=== PATIENT | female | born 1940 | race Caucasian/White ===

== ENCOUNTER 2017-12-22 10:38 | Inpatient (IN) | payer MEDICARE ==
[2017-12-22] MEDS ORDERED: Acetaminophen TAB* 325 MG PO PRN (13:28)
[2017-12-22] MEDS ORDERED: Magnesium Hydroxide LIQ* 30 ML UDC PO PRN (13:28)
[2017-12-22] MEDS ORDERED: Senna TAB PO PRN (13:28)
[2017-12-22] MEDS: Vancomycin CAP* 125 MG CAP PO SCH ×2 (16:10→20:58)
--- NOTE | 2017-12-22 20:45 | HP ---
HISTORY AND PHYSICAL: DATE OF ADMISSION: 12/22/17 REASON FOR ADMISSION: CVA with right hemiplegia. HISTORY OF PRESENT ILLNESS: Lorena Arguello is a 77-year-old female. She has a history significant for hypertension. She lives in her own home in [place]. On 12/12/17, the patient was in her own home. She called and spoke to her daughter. Her daughter then called on 12/13/17 the following day and was not able to reach her mother. She went to her mother's house and found her mother on the floor. She was on the floor for many hours. Unfortunately, she was outside the window for TPA. Her daughter called 911 and she was brought to [facility]. 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 Surgery was consulted; but due to the 100% occlusion , no intervention was recommended. She had a dense right hemiplegia as well as a left gaze preference. She also was noted to have left-sided facial droop and significant dysarthria and dysphagia. She was on a purred diet with nectar thick liquids. She was felt to have Physical Therapy, Occupational Therapy, and Speech Therapy needs. She is now being admitted for inpatient rehab so that she might return to independent living. Also of note, the patient did have newly documented atrial fibrillation with rapid ventricular response on . Recommendations of the aircraft maintenance engineer was that she be anticoagulated 1 week after the stroke onset. She was started on Pradaxa on 12/19/17. She also had a beta-amor added. She also had diarrhea while at [facility]. C. diff was positive on 12/19/17. She was started on Flagyl and then switched to vancomycin. The vancomycin should finish 12/30/17. PAST MEDICAL HISTORY: Significant for the aforementioned hypertension. In addition, the patient may have had a TIA over the summer, which she did not tell anybody about until after she had her stroke. She developed the acute onset left facial droop for several hours which passed on its own. CURRENT MEDICATIONS: Include: 1. Pradaxa. 2. Cozaar. 3. Lipitor. 4. Toprol-XL. 5. Vancomycin for C. diff. ALLERGIES: To ASPIRIN, BENADRYL, PENICILLIN, and SULFA. SOCIAL HISTORY: She is a smoker, nondrinker. She lives by herself in a 1- story house with several steps to enter her. Her daughter lives next door. REVIEW OF SYSTEMS: The patient reports no shortness of breath or chest pain. PHYSICAL EXAMINATION VITAL SIGNS: The patient's temperature is 98.2, blood pressure is 158/92, pulse 58, respirations 16. HEENT: She has a left gaze preference. With effort, she is able to look past the midline to the right, but typically looks towards the left. She has a left facial droop. LUNGS: Sound clear to auscultation bilaterally. HEART: Regular. S1, S2 audible. ABDOMEN: Soft and nontender. EXTREMITIES: Her right upper and lower extremity appeared to be flaccid. Peripheral pulses were intact.He right heel has a 3 x 3 cm Stage II (at least) pressure ulcer, with outer epidermal layer open NEUROLOGIC: The patient was awake, alert, oriented. Muscle strength on the right, I did not detect any active movement in her right upper and lower extremity. Sensation was slightly diminished. As mentioned, she has a gaze preference to the left. She has a significant dysarthria. FUNCTIONAL EXAM: She transfers with mod assist of 2 people. ASSESSMENT: Cerebrovascular accident with right hemiplegia. PLAN: Integrate her into a comprehensive and therapeutic rehab program with the following goals. 1. Physical Therapy will work with the patient. They are going to work on functional transfer training, ambulation training, and wheelchair mobilities. 2. Occupational Therapy will see the patient and work on her activities of daily living including toileting and toilet transfers. 3. Speech Therapy will see the patient. They are going to work on her significant dysarthria as well as her swallowing difficulties. 4. We are going to continue Pradaxa for her atrial fibrillation along with Toprol- XL. 5. DVT prophylaxis is Pradaxa 150 mg twice a day. 6. For her dysarthria, she remains on a pureed diet with nectar thick liquids. 7. For secondary stroke prevention, we are going to continue Pradaxa as well as Lipitor. 8. Smoking cessation will be encouraged. 9. SSRIs including Prozac as indicated. We are going to start her on Prozac 10 mg in the next few days. 10. Family training as appropriate. 11. director of consulting services will be closely involved to make sure that any services and equipment that the patient requires are in place prior to discharge. 12. Home with appropriate services. ESTIMATED LENGTH OF STAY: Four to five weeks. [id number]/[facility] #: [id number] HILARIA
[2017-12-22] MEDS: Docusate CAP* 100 MG PO SCH (20:56)
[2017-12-22] MEDS: CMC:Dabigatran CAP(NF) 150 MG CAP PO SCH (20:59)
[2017-12-23 07:53] LABS: ABS Basophils 0.1 10^3/ul (0-0.2); ABS Eosinophils 0.1 10^3/ul (0-0.6); ABS Lymphocytes 2.2 10^3/ul (1.0-4.8); ABS Monocytes 1.5 10^3/ul (0-0.8); ABS Neutrophils 8.9 10^3/ul (1.5-7.7); ABS Nucleated RBC 0 10^3/ul; Eosinophil % 0.9 % (0-6); Hematocrit 40 % (35-47); Hemoglobin 13.4 g/dl (12.0-16.0); Lymphocyte % 17.3 % (25-47); Mean Corpuscular HGB Conc 33 g/dl (31-36); Mean Corpuscular Hemoglobin 29 pg (27-31); Mean Corpuscular Volume 86 fL (80-97); Mean Platelet Volume 9 um3 (7.4-10.4); Nucleated Red Blood Cells % 0; Platelet Count 331 10^3/ul (150-450); Red Blood Count 4.68 10^6/ul (4.0-5.4); Red Cell Distribution Width 15 % (10.5-15); White Blood Count 12.9 10^3/ul (3.5-10.8)
[2017-12-23 08:12] LABS: EGFR Non-African American 98.3 (>60)
[2017-12-23] MEDS: Losartan TAB* 25 MG PO SCH (08:51)
[2017-12-23] MEDS: Vancomycin CAP* 125 MG CAP PO SCH ×4 (08:51→21:16)
[2017-12-23] MEDS: CMC:Dabigatran CAP(NF) 150 MG CAP PO SCH ×2 (08:51→21:16)
[2017-12-23] MEDS: Lactobacillus Acidophilu (GG)* 1 CAP CAP PO SCH (08:51)
[2017-12-23] MEDS: Metoprolol Succinate XL TAB* 50 MG PO SCH (08:51)
[2017-12-23] MEDS: Docusate CAP* 100 MG PO SCH ×2 (09:00→21:12)
[2017-12-23] MEDS: Atorvastatin* 80 MG TAB PO SCH (16:57)
--- NOTE | 2017-12-23 18:06 | PN ---
Progress Note Date of Service: 12/23/17 Note: CANDI WADE was visited. Therapy notes read and reviewed. She remains with flaccid right side. She is also dysarthric, but communicates enough to be understood. Remains on pureed textures, nectar thick liquids Current Medications: Active Medications Generic Name Dose Route Start Last Admin Trade Name Freq PRN Reason Stop Dose Admin Acetaminophen 650 mg 12/22/17 13:28 Tylenol Tab* PO Q6H PRN FEVER/PAIN Atorvastatin Calcium 80 mg 12/23/17 17:00 12/23/17 16:57 Lipitor* PO 80 mg 1700 NATHANIEL Administration Dabigatran 150 mg 12/22/17 21:00 12/23/17 08:51 Pradaxa Cap(Nf) PO 150 mg BID NATHANIEL Administration Docusate Sodium 100 mg 12/22/17 21:00 12/23/17 09:00 Colace Cap* PO Not Given BID NATHANIEL Lactobacillus Rhamnosus 1 cap 12/23/17 09:00 12/23/17 08:51 Culturelle* PO 1 cap DAILY NATHANIEL Administration Losartan Potassium 100 mg 12/23/17 09:00 12/23/17 08:51 Cozaar Tab* PO 100 mg DAILY NATHANIEL Administration Magnesium Hydroxide 30 ml 12/22/17 13:28 Milk Of Magnesia Liq* PO Q6H PRN CONSTIPATION Metoprolol Succinate 75 mg 12/23/17 09:00 12/23/17 08:51 Toprol Xl Tab* PO 75 mg DAILY NATHANIEL Administration Senna 2 tab 12/22/17 13:28 Senokot Tab* PO BEDTIME PRN CONSTIPATION Vancomycin HCl 125 mg 12/22/17 17:00 12/23/17 16:57 Vancomycin Cap* PO 12/30/17 23:55 125 mg QID NATHANIEL Administration Vital Signs: Vital Signs Temp Pulse Resp BP Pulse Ox 97.9 F 57 18 145/64 94 12/23/17 15:46 12/23/17 15:46 12/23/17 15:48 12/23/17 15:46 12/23/17 15:48 Lab Results: Laboratory Results - last 24 hr 12/23/17 12/23/17 07:20 07:20 WBC 12.9 H RBC 4.68 Hgb 13.4 Hct 40 MCV 86 MCH 29 MCHC 33 RDW 15 Plt Count 331 MPV 9 Neut % (Auto) 69.3 Lymph % (Auto) 17.3 L Simpson % (Auto) 11.7 H Eos % (Auto) 0.9 Baso % (Auto) 0.8 Absolute Neuts (auto) 8.9 H Absolute Lymphs (auto) 2.2 Absolute Monos (auto) 1.5 H Absolute Eos (auto) 0.1 Absolute Basos (auto) 0.1 Absolute Nucleated RBC 0 Nucleated RBC % 0 Sodium 138 Potassium 3.5 Chloride 105 Carbon Dioxide 27 Anion Gap 6 BUN 23 Creatinine 0.59 Est GFR ( Amer) 126.5 Est GFR (Non-Af Amer) 98.3 BUN/Creatinine Ratio 39.0 H Glucose 101 H Calcium 8.8 Total Bilirubin 0.60 AST 23 ALT 27 Alkaline Phosphatase 84 Total Protein 6.1 L Albumin 3.1 L Globulin 3.0 Albumin/Globulin Ratio 1.0 Exam: HEENT: L facial droop. Left gaze preference LUNGS: Clear bilaterally HEART: Reg rhythm ABDOMEN: Soft + BS NEUROLOGIC: Right side is flaccid. Dysarthric. Assessment/Plan: 12/23/17 18:03 1. Left CVA, right hemiplegia: PT/OT/RETAIL PLANNING MANAGER. 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 May start Prozac 2. Dysphagia: Pureed Texture, nectar thick liquids 3. Right heel ulcer: Doing mepiplex dressings 4. P. Atrial Fibrillation: Pradaxa/Lopressor 5. C. Diff: Oral Vanco until 12/30 6. Advanced Directives: Has MOLST; DNR
[2017-12-24] MEDS: Docusate CAP* 100 MG PO SCH ×2 (09:11→20:53)
[2017-12-24] MEDS: CMC:Dabigatran CAP(NF) 150 MG CAP PO SCH ×2 (09:51→21:04)
[2017-12-24] MEDS: Vancomycin CAP* 125 MG CAP PO SCH ×4 (09:51→21:04)
[2017-12-24] MEDS: Metoprolol Succinate XL TAB* 50 MG PO SCH (09:52)
[2017-12-24] MEDS: Losartan TAB* 25 MG PO SCH (09:52)
[2017-12-24] MEDS: Lactobacillus Acidophilu (GG)* 1 CAP CAP PO SCH ×2 (09:52→21:04)
[2017-12-24] MEDS: Atorvastatin* 80 MG TAB PO SCH (17:22)
--- NOTE | 2017-12-24 20:12 | PN ---
Progress Note Date of Service: 12/24/17 Note: CANDI WADE was visited. Therapy notes read and reviewed. Will start Prozac tomorrow. We will also try the Free Water program as recommended by CLINICAL PROGRAM MANAGER: Allow sips of free water between meals after checking for any residual pocketed food. She has better eye movement today Current Medications: Active Medications Generic Name Dose Route Start Last Admin Trade Name Freq PRN Reason Stop Dose Admin Acetaminophen 650 mg 12/22/17 13:28 Tylenol Tab* PO Q6H PRN FEVER/PAIN Atorvastatin Calcium 80 mg 12/23/17 17:00 12/24/17 17:22 Lipitor* PO 80 mg 1700 NATHANIEL Administration Dabigatran 150 mg 12/22/17 21:00 12/24/17 09:51 Pradaxa Cap(Nf) PO 150 mg BID NATHANIEL Administration Docusate Sodium 100 mg 12/22/17 21:00 12/24/17 09:11 Colace Cap* PO Not Given BID NATHANIEL Fluoxetine HCl 10 mg 12/25/17 09:00 Prozac Cap* PO DAILY NATHANIEL Lactobacillus Rhamnosus 1 cap 12/24/17 21:00 Culturelle* PO BID NATHANIEL Losartan Potassium 100 mg 12/23/17 09:00 12/24/17 09:52 Cozaar Tab* PO 100 mg DAILY NATHANIEL Administration Magnesium Hydroxide 30 ml 12/22/17 13:28 Milk Of Magnantonio Liq* PO Q6H PRN CONSTIPATION Metoprolol Succinate 75 mg 12/23/17 09:00 12/24/17 09:52 Toprol Xl Tab* PO 75 mg DAILY NATHANIEL Administration Nystatin 1 applic 12/24/17 21:00 Nystatin Top Powder* TOPICAL BID NATHANIEL Senna 2 tab 12/22/17 13:28 Senokot Tab* PO BEDTIME PRN CONSTIPATION Vancomycin HCl 125 mg 12/22/17 17:00 12/24/17 17:22 Vancomycin Cap* PO 12/30/17 23:55 125 mg QID NATHANIEL Administration Vital Signs: Vital Signs Temp Pulse Resp BP Pulse Ox 97.9 F 57 18 180/89 98 12/24/17 15:20 12/24/17 15:20 12/24/17 15:20 12/24/17 15:20 12/24/17 19:22 Exam: HEENT: L facial droop. Left gaze preference LUNGS: Clear bilaterally HEART: Reg rhythm ABDOMEN: Soft + BS NEUROLOGIC: Right side is flaccid. Dysarthric. Assessment/Plan: 1. Left CVA, right hemiplegia: PT/OT/CLINICAL PROGRAM MANAGER. 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 Will start Prozac 2. Dysphagia: Pureed Texture, nectar thick liquids 3. Right heel ulcer: Doing mepiplex dressings 4. P. Atrial Fibrillation: Pradaxa/Lopressor 5. C. Diff: Oral Vanco until 12/30, increase Culturelle to BID 6. Advanced Directives: Has MOLST; DNR 12/24/17 20:12
[2017-12-24] MEDS: Nystatin TOP POWDER* 15 GM BTL TOPICAL SCH (22:42)
[2017-12-25] MEDS: CMC:Dabigatran CAP(NF) 150 MG CAP PO SCH ×2 (09:07→20:47)
[2017-12-25] MEDS: Metoprolol Succinate XL TAB* 50 MG PO SCH (09:07)
[2017-12-25] MEDS: Lactobacillus Acidophilu (GG)* 1 CAP CAP PO SCH ×2 (09:07→20:54)
[2017-12-25] MEDS: FLUoxetine CAP* 10 MG PO SCH (09:07)
[2017-12-25] MEDS: Vancomycin CAP* 125 MG CAP PO SCH ×4 (09:07→20:54)
[2017-12-25] MEDS: Losartan TAB* 25 MG PO SCH (09:07)
[2017-12-25] MEDS: Nystatin TOP POWDER* 15 GM BTL TOPICAL SCH ×2 (09:08→20:54)
[2017-12-25] MEDS: Docusate CAP* 100 MG PO SCH ×2 (09:08→20:54)
--- NOTE | 2017-12-25 10:35 | PN ---
Progress Note Date of Service: 12/25/17 Note: CANDI WADE was visited. Nursing and therapy notes read and reviewed. No chest pain, shortness of breath or abdominal pain. She does not offer any complaints. She is aware she had a big stroke. Current Medications: Active Medications Generic Name Dose Route Start Last Admin Trade Name Freq PRN Reason Stop Dose Admin Acetaminophen 650 mg 12/22/17 13:28 Tylenol Tab* PO Q6H PRN FEVER/PAIN Atorvastatin Calcium 80 mg 12/23/17 17:00 12/24/17 17:22 Lipitor* PO 80 mg 1700 NATHANIEL Administration Dabigatran 150 mg 12/22/17 21:00 12/25/17 09:07 Pradaxa Cap(Nf) PO 150 mg BID NATHANIEL Administration Docusate Sodium 100 mg 12/22/17 21:00 12/25/17 09:08 Colace Cap* PO Not Given BID NATHANIEL Fluoxetine HCl 10 mg 12/25/17 09:00 12/25/17 09:07 Prozac Cap* PO 10 mg DAILY NATHANIEL Administration Lactobacillus Rhamnosus 1 cap 12/24/17 21:00 12/25/17 09:07 Culturelle* PO 1 cap BID NATHANIEL Administration Losartan Potassium 100 mg 12/23/17 09:00 12/25/17 09:07 Cozaar Tab* PO 100 mg DAILY NATHANIEL Administration Magnesium Hydroxide 30 ml 12/22/17 13:28 Milk Of Magnesia Liq* PO Q6H PRN CONSTIPATION Metoprolol Succinate 75 mg 12/23/17 09:00 12/25/17 09:07 Toprol Xl Tab* PO 75 mg DAILY NATHANIEL Administration Nystatin 1 applic 12/24/17 21:00 12/25/17 09:08 Nystatin Top Powder* TOPICAL 1 applic BID NATHANIEL Administration Senna 2 tab 12/22/17 13:28 Senokot Tab* PO BEDTIME PRN CONSTIPATION Vancomycin HCl 125 mg 12/22/17 17:00 12/25/17 09:07 Vancomycin Cap* PO 12/30/17 23:55 125 mg QID NATHANIEL Administration Vital Signs: Vital Signs Temp Pulse Resp BP Pulse Ox 98.5 F 68 18 180/72 93 12/25/17 06:10 12/25/17 06:10 12/24/17 23:50 12/25/17 06:10 12/25/17 06:10 Repeated manually by nurse at 1030 a BP 124/72 and HR 74 while sitting up in the chair. Lab Results: Noted WBCs 12.9 on 12/23/17. Exam: GEN: No acute distress. Alert and appropriate. HEENT: L facial droop. Left gaze preference. LUNGS: Clear bilaterally HEART: Regular rate and rhythm ABDOMEN: Soft, + BS, non-tender, non-distended NEUROLOGIC: Right side is flaccid. Dysarthric. She says she can feel LT on right side, but does not seem reliable. EXTREMITIES: No edema. Right lower leg is SUDHAKAR wrapped with spenco on. Assessment/Plan: 77yo woman s/p CVA with right hemiplegia, dysphagia, dysarthria, and cognitive impairment. 1. Left CVA, right hemiplegia: PT/OT/RF ENGINEER. 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 Prozac started today. 2. Dysphagia: Pureed Texture, nectar thick liquids 3. Right heel ulcer: Doing mepilex dressings. Consider multipodus boot with vigilant skin checks. 4. P. Atrial Fibrillation: Pradaxa/Lopressor 5. C. Diff: Oral Vanco until 12/30, increased Culturelle to BID 6. Hypertension: It is better once she is sitting up. I do not want to add another agent and make her hypotensive. Will have HOB elevated to 30deg when in bed and if not sleeping, have vitals taken with her sitting up. 7. Mild leukocytosis on 12/24/17: recheck cbc in am. 8. Advanced Directives: Has MOLST; DNR 9. Estimated LOS: IP meeting today. 12/25/17 10:36
--- NOTE | 2017-12-25 12:37 | PMRUTEAM ---
PMRU: Goals Current Status: Nursing: Current Status Skin Deviations [Right Lower Abrasion Leg] Skin Deviations [Buttocks] Rash Skin Deviations [Right Heel] Wound Skin Deviations [Left Heel] Other Skin Deviation Description [ abrasion x2, scabbed over Right Lower Leg] Skin Deviation Description [ redness. lotion applied Buttocks] Skin Deviation Description [ spanko boots in place Right Heel] Skin Deviation Description [ spanko boots in place Left Heel] Wound Stage [Right Heel] II Physical Therapy: Current Status Bed Mobility Assistance Not Tested Transfer Moblility Assistance 2 Max Assist Transfer/Bed Mobility None Recommended Devices Ambulation Assistance Unable Ambulation Assistive Devices Alpesh Walker Occupational Therapy: Current Status Upper Body Dressing Max Asst Lower Body Dressing Total Assist Bathing Max Asst Toileting Total Assist Toilet Transfer Max Asst,2 Person Assist Eating Supervision,Min Assist Rec Therapy: Current Status Summary of Assessment and Pt. was open to conversation and identified with Clinical Impression interests. Pt. states she enjoys her life and is "very independent". Pt. had poor eye contact in conversation and at times had a difficult expressing herself and stated "I feel like my mind goes blank". Pt. was interested in word puzzles which were provided to her. Pt. was open to continued leisure visits. Treatment Goals Pt. will engage in recreation and leisure activities while on the unit. Treatment Plan Provide RT services and encourage involvement. Social Work: Current Status Discharge Plan return home with home care svs and family support Potential for Family Training pt's daughter is attentive and involved Anticipated Discharge Home Destination Discharge With home care svs and family support Speech: Current Status Assessment Swallowing: Patient demonstrated moderate orophayrngeal swallowing impairment ad requires restriction to pureed consistency, nectar thick liquids, and pills in pudding consistency. Pt is not accepting of adequate intake of nectar liquids, and is appropriate for free water protocol with use of precautions. Goals: Physical Therapy: Initial Goals Bed Mobility Assistance Independent Transfer Mobility Assistance Independent Transfer/Bed Mobility Alpesh Walker Recommended Devices Ambulation Independent Ambulation Recommended Devices Alpesh Walker Ambulation Distance 50 Stairs Assistance Independent Stair Recommended Devices One Rail Number of Stairs 5 Occupational Therapy: Initial Goals Goals to be Completed in (Days 4-6 weeks ) Upper Body Bathing Routine Modified Independent with Lower Body Bathing Routine Modified Independent with Upper Body Dressing Routine Modified Independent with Lower Body Dressing Routine Modified Independent with Toilet Hygeine and Clothing Modified Independent with Management Routine Toilet Transfer Routine Modified Independent with Step-In Shower Transfer Modified Independent with Routine Tub Transfer Routine Modified Independent with Functional Transfers for ADL Modified Independent with Grooming Routine Modified Independent with Feeding Routine Modified Independent with Nutrition: Goals Intervention Goals 1. pt will tolerate least-restrictive diet texture and liquid consistency without s/sx aspiration 2. adequate po intake to maintain lean body mass and hydration; no clinical s/sx dehydration 3. bowel pattern will be regulated; no c/o diarrhea (or constipation) Speech: Goals Speech Goal 1 Swallowing Goal 1 Comments Long-Term Goal: Pt will tolerate least restrictive diet consistencies with no clinical s/s or complications from aspiration. Short-Term Goal: Pt will will tolerate skilled trials of thin water with minimal clinical s/s aspiration and demonstrate understanding and ability to follow precautions to tolerate free water protocol without complications from aspiration. Status: Met. Revised Short-Term Goal: Pt will will tolerate thin water independently with minimal clinical s/s aspiration and demonstrate understanding and ability to follow precautions to tolerate free water protocol without complications from aspiration. BRICKLAYER SUPERVISOR instructed pt to follow compensatory strategies of sitting upright, completing oral care before drinking thin water, tucking chin to the Left side, and taking small single sips. When pt did not follow precautios, pt demonstrated wet coughing and awareness of her mistake. BRICKLAYER SUPERVISOR faded cueing from moderate johnny cueing, and pt continued to follow precautions independently. Pt recalled basic precautions and required moderate cueing to recall all precautions. Nursing reported pt pocketed pills and did not clear pills with nectar liquids rinse, but did clear pills with pudding. BRICKLAYER SUPERVISOR provided printed instructiosn and written signage for patient and care givers, and made recommendations to provider. Speech Goal 2 Problem Solving Speech Goal 2 Comments Long-Term Goal: Pt will solve functional daily problems independently using compensatory strategies as needed. Short-term goal: Pt will attend to and recall orientation and her right-sided deficits, and demonstrate use of compensatory strategies to solve simple memory, feeding and self-care problems. Status: Ongoing. BRICKLAYER SUPERVISOR provided printed and written verbal puzzles. Pt required [id number] assistance to initiate writing with her unaffected nondominant Left hand, and advanced from graded activities from simple strokes to letter forms woth cueing faded to moderate. Pt demonstated letter-finding difficulty in writing and verbally. For expressive cross- word and receptive word-search puzzle tasks, pt required maximal cueing to use gaze-Right strategy with bright visual marker, to attend to information on the Right side of pages. Social Work: Goals Discharge Plan return home with home care svs and family support Potential for Family Training pt's daughter is attentive and involved Anticipated Discharge Home Destination Discharge With home care svs and family support Care Plan: Care Plan ADL's - Improve/Maintain Start: 12/22/17 15:29 Freq: QSHIFT Status: Active Target: Protocol: Activity Type Activity Date Activity User E-Sign Co-Sign Detail Recorded Client Recorded Date Recorded By Document 12/25/17 11:25 [id number] [id number] 12/25/17 11:25 [id number] 12/25/17 11:25 PMRU Outcome: ADL's/ADL Transfers Orders/Interventions Occupational Therapy Evaluation & Treatment Communication Tool in Patient Room Address Deficits Secondary To: CVA Patient to receive OT 5x/wk for 60-120 Therex min/day Self Care Management Group Therapy Neuromuscular ReEducation UE/LE ADL's with Assist Yes: Ken ADL Transfers with Assist Yes: Ken Toileting: Transfers,Clothing Management Yes: Ken ,Hygeine w/Assist Light Kitchen/Laundry w/Assist Yes: Lilly Progression Toward Outcome/Goals Progressing Outcome/Goals Met Pt participated well in OT treatment session, pt with difficulty recalling previous sessions with minimal recall from session to session regarding hemidressing and other techniques. Pt will benefit from continued skilled OT intervention to maximize independence and safety. Communication-Improve/Maintain Start: 12/24/17 02:06 Freq: QSHIFT Status: Active Target: Protocol: Activity Type Activity Date Activity User E-Sign Co-Sign Detail Recorded Client Recorded Date Recorded By Document 12/25/17 11:58 [id number] [email or web address] 12/25/17 12:00 [id number] 12/25/17 11:58 PMRU Outcome: Communication/Cognitive Status Outcome/Goals Use Comm Tools/ Devices Makes Needs Known Effectively Other Outcomes/Goals Long-Term Goal: Pt will tolerate least restrictive diet consistencies with no clinical s/s or complications from aspiration . Long-Term Goal: Pt will solve functional daily problems independently using compensatory strategies as needed. Short-term goal : Pt will attend to and recall orientation and her right- sided deficits, and demonstrate use of compensatory strategies to solve simple memory, feeding and self-care problems. Short-Term Goal : Pt will will tolerate pureed consistency and nectar thick liquids w /o clinical s/s or complications from aspiration Short-Term Goal : Pt will will tolerate thin water independently with minimal clinical s/s aspiration and demonstrate understanding and ability to follow precautions to tolerate free water protocol without complications from aspiration . Progression Toward Outcomes/Goals Goals Adjusted Coping/Psych-Improve/Maintain Start: 12/24/17 02:06 Freq: QSHIFT Status: Active Target: Protocol: Activity Type Activity Date Activity User E-Sign Co-Sign Detail Recorded Client Recorded Date Recorded By Document 12/25/17 00:53 [id number] [id number] 12/25/17 00:55 [id number] 12/25/17 00:53 PMRU Outcome: Coping/Psychosocial Coping Outcome/Goals Verbalization of Acceptance of Rehab Admit Willingness to Participate in Treatment Plan and Basic Needs Psychosocial Outcome/Goals Maintain/ Improve Emotional Health Cooperate/ Participate in Plan Progression Toward Outcome/Goals - Progressing Coping Progression Toward Outcome/Goals - Progressing Psychosocial Discharge Planning - Improve/Maintain Start: 12/24/17 02:06 Freq: QSHIFT Status: Active Target: Protocol: Activity Type Activity Date Activity User E-Sign Co-Sign Detail Recorded Client Recorded Date Recorded By Document 12/25/17 00:52 [id number] [id number] 12/25/17 00:53 [id number] 12/25/17 00:52 PMRU Outcome: Discharge Planning Update Patient Family No Outcome/Goals Demonstrates Understanding of Discharge Plan Progression Toward Outcome/Goals Progressing Education-Improve/Maintain Start: 12/24/17 02:06 Freq: QSHIFT Status: Active Target: Protocol: Activity Type Activity Date Activity User E-Sign Co-Sign Detail Recorded Client Recorded Date Recorded By Document 12/25/17 00:53 [id number] [id number] 12/25/17 00:55 [id number] 12/25/17 00:53 PMRU Outcome: Education Outcome/Goals Demonstrate/ Verbalize Understanding of Written Discharge Instructions Demonstrates Skills Encourage Questions Progression Toward Outcome/Goals Progressing /GI-Improve/Maintain Start: 12/24/17 02:06 Freq: QSHIFT Status: Active Target: Protocol: Activity Type Activity Date Activity User E-Sign Co-Sign Detail Recorded Client Recorded Date Recorded By Document 12/25/17 00:53 [id number] [id number] 12/25/17 00:55 [id number] 12/25/17 00:53 PMRU Outcome: Genitourinary/ Gastrointestinal Genitourinary- Outcome/Goals Maintain/ Achieve Urinary Continence Remain Free of Hospital- Acquired UTI Gastrointestinal-Outcome/Goals Maintain/ Achieve Bowel Regularity in Accordance with Pt's Baseline Prevent Constipation Progression Toward Outcome/Goals - Progressing Progression Toward Outcome/Goals - GI Not Progressing Outcome/Goals Met Comment + for C,diff - pt still has bouts of diarrhea Medication Administration Start: 12/24/17 02:06 Freq: QSHIFT Status: Active Target: Protocol: Activity Type Activity Date Activity User E-Sign Co-Sign Detail Recorded Client Recorded Date Recorded By Document 12/25/17 00:53 [id number] [email or web address] 12/25/17 00:55 [id number] 12/25/17 00:53 PMRU Outcome: Medication Administration Assess Patient Knowledge/Teach Med No Education for all Meds Outcome/Goals Patient Independent with Medication Administration at Home Demonstrates Understanding Progression Towards Outcome/Goals Progressing Is Patient Going Home on Lovenox? No Mobility- Improve/Maintain Start: 12/22/17 18:22 Freq: QSHIFT Status: Active Target: Protocol: Activity Type Activity Date Activity User E-Sign Co-Sign Detail Recorded Client Recorded Date Recorded By Document 12/24/17 12:20 [id number] [email or web address] 12/24/17 12:20 [id number] 12/24/17 12:20 PMRU Outcome: Mobility Physical Therapy Evaluation and Yes Treatment Activity OOB with Assistance Yes Device Yes Assistance Yes Patient to be seen 5x/wk for 60-120 min/ Therex day for: Mobility Training Gait Training W/C Mobility Balance Outcome/Goals Maintain/ Achieve Baseline Mobility Status Improve Mobility Status Demonstrates Proper Use of Assistive Devices Free from Complications of Immobility Progression Toward Outcome/Goals Progressing Bed Mobility Yes: independent Transfers Yes: independnet with alpesh walker Gait x ft Yes: independent with alpesh walker to household distances (50') Up/Down Stairs Yes: independent with 1 rail up/ down 5 Neurological- Improve/Maintain Start: 12/24/17 02:06 Freq: QSHIFT Status: Active Target: Protocol: Activity Type Activity Date Activity User E-Sign Co-Sign Detail Recorded Client Recorded Date Recorded By Document 12/25/17 00:53 [id number] 12/25/17 00:55 [id number] 12/25/17 00:53 PMRU Outcome: Neurological Weakness/Aphasia Weakness Right Side Outcome/Goals Maintain/ Achieve Baseline Neurological Status Improve Neurological Status Prevent Avoidable Neurological Decline Demonstrate Knowledge of Prevention/Tx of Neuro Disorders/ Complication Maintain/ Improve Strength/ROM Progression Toward Outcome/Goals Progressing Nutrition/Swallowing- Improve/Maintain Start: 12/24/17 02:06 Freq: QSHIFT Status: Active Target: Protocol: Activity Type Activity Date Activity User E-Sign Co-Sign Detail Recorded Client Recorded Date Recorded By Document 12/25/17 00:53 [id number] 12/25/17 00:55 [id number] 12/25/17 00:53 PMRU Outcome: Nutrition/Swallowing Outcome/Goals Demonstrates Adequate Hydration/ Prevents Dehydration Progression Toward Outcome/Goals Progressing Safety- Improve/Maintain Start: 12/24/17 02:06 Freq: QSHIFT Status: Active Target: Protocol: Activity Type Activity Date Activity User E-Sign Co-Sign Detail Recorded Client Recorded Date Recorded By Document 12/25/17 00:53 [id number] 12/25/17 00:55 [id number] 12/25/17 00:53 PMRU Outcome: Safety Outcome/Goals Remain Free of Injury or Harm Cooperates with Safety Measures for Least Restrictive Environment Prevent Falls/ Injury Progression Toward Outcome/Goals Progressing Outcome/Goals Met Comment PA in place Skin- Improve/Maintain Start: 12/24/17 02:06 Freq: QSHIFT Status: Active Target: Protocol: Activity Type Activity Date Activity User E-Sign Co-Sign Detail Recorded Client Recorded Date Recorded By Document 12/25/17 00:53 [id number] [email or web address] 12/25/17 00:55 [id number] 12/25/17 00:53 PMRU Outcome: Skin Skin Risk Level High Skin Orders Spenco Boots Heels Off Bed Turn/Position q2hr While in Bed Outcome/Goals Maintain/ Improve Skin Intergrity Maintain/ Improve Wound Status Progression Toward Outcome/Goals Progressing Outcome/Goals Met Comment heels in spanko boots Medicine Note: Length of Stay: [6 weeks] Anticipated Discharge Destination: Home Tentative Discharge Date: [02/05/18] Discharged to: [home]
[2017-12-25] MEDS: Atorvastatin* 80 MG TAB PO SCH (17:26)
[2017-12-26 05:52] LABS: ABS Basophils 0.1 10^3/ul (0-0.2); ABS Eosinophils 0.1 10^3/ul (0-0.6); ABS Lymphocytes 2.7 10^3/ul (1.0-4.8); ABS Monocytes 1.4 10^3/ul (0-0.8); ABS Neutrophils 9.3 10^3/ul (1.5-7.7); ABS Nucleated RBC 0 10^3/ul; Eosinophil % 0.9 % (0-6); Hematocrit 42 % (35-47); Hemoglobin 14.2 g/dl (12.0-16.0); Lymphocyte % 19.9 % (25-47); Mean Corpuscular HGB Conc 34 g/dl (31-36); Mean Corpuscular Hemoglobin 29 pg (27-31); Mean Corpuscular Volume 86 fL (80-97); Mean Platelet Volume 9 um3 (7.4-10.4); Nucleated Red Blood Cells % 0; Platelet Count 331 10^3/ul (150-450); Red Blood Count 4.86 10^6/ul (4.0-5.4); Red Cell Distribution Width 14 % (10.5-15); White Blood Count 13.6 10^3/ul (3.5-10.8)
[2017-12-26] MEDS: Docusate CAP* 100 MG PO SCH (08:53)
[2017-12-26] MEDS: Metoprolol Succinate XL TAB* 50 MG PO SCH (08:56)
[2017-12-26] MEDS: Lactobacillus Acidophilu (GG)* 1 CAP CAP PO SCH ×2 (08:57→21:02)
[2017-12-26] MEDS: Losartan TAB* 25 MG PO SCH (08:57)
[2017-12-26] MEDS: CMC:Dabigatran CAP(NF) 150 MG CAP PO SCH ×2 (08:57→21:02)
[2017-12-26] MEDS: Vancomycin CAP* 125 MG CAP PO SCH ×4 (08:57→21:02)
[2017-12-26] MEDS: FLUoxetine CAP* 10 MG PO SCH (08:57)
[2017-12-26] MEDS: Nystatin TOP POWDER* 15 GM BTL TOPICAL SCH ×2 (09:02→21:20)
[2017-12-26] MEDS ORDERED: Docusate CAP* 100 MG PO PRN (09:22)
--- NOTE | 2017-12-26 09:59 | PN ---
Progress Note Date of Service: 12/26/17 Note: CANDI WADE was visited. Nursing and therapy notes read and reviewed. She wants to get dressed and into the chair as she expects visitors today. No chest pain, shortness of breath or abdominal pain. She asks why is she on a pureed diet. Stools are loose and she is incontinent for stool and urine. Current Medications: Active Medications Generic Name Dose Route Start Last Admin Trade Name Freq PRN Reason Stop Dose Admin Acetaminophen 650 mg 12/22/17 13:28 Tylenol Tab* PO Q6H PRN FEVER/PAIN Atorvastatin Calcium 80 mg 12/23/17 17:00 12/25/17 17:26 Lipitor* PO 80 mg 1700 NATHANIEL Administration Dabigatran 150 mg 12/22/17 21:00 12/26/17 08:57 Pradaxa Cap(Nf) PO 150 mg BID NATHANIEL Administration Docusate Sodium 100 mg 12/26/17 09:22 Colace Cap* PO BID PRN CONSTIPATION Fluoxetine HCl 10 mg 12/25/17 09:00 12/26/17 08:57 Prozac Cap* PO 10 mg DAILY NATHANIEL Administration Lactobacillus Rhamnosus 1 cap 12/24/17 21:00 12/26/17 08:57 Culturelle* PO 1 cap BID NATHANIEL Administration Losartan Potassium 100 mg 12/23/17 09:00 12/26/17 08:57 Cozaar Tab* PO 100 mg DAILY NATHANIEL Administration Magnesium Hydroxide 30 ml 12/22/17 13:28 Milk Of Magnesia Liq* PO Q6H PRN CONSTIPATION Metoprolol Succinate 75 mg 12/23/17 09:00 12/26/17 08:56 Toprol Xl Tab* PO 75 mg DAILY NATHANIEL Administration Nystatin 1 applic 12/24/17 21:00 12/26/17 09:02 Nystatin Top Powder* TOPICAL 1 applic BID NATHANIEL Administration Senna 2 tab 12/22/17 13:28 Senokot Tab* PO BEDTIME PRN CONSTIPATION Vancomycin HCl 125 mg 12/22/17 17:00 12/26/17 08:57 Vancomycin Cap* PO 12/30/17 23:55 125 mg QID NATHANIEL Administration Vital Signs: Vital Signs 12/25/17 12/25/17 12/25/17 16:10 18:00 20:00 Temperature 99.0 F Pulse Rate 64 Respiratory 18 18 Rate Blood Pressure 170/100 112/62 (mmHg) O2 Sat by Pulse 100 100 Oximetry 12/26/17 12/26/17 06:32 08:50 Temperature 98.1 F Pulse Rate 57 Respiratory 18 Rate Blood Pressure 172/70 169/54 (mmHg) O2 Sat by Pulse 92 Oximetry I checked her BP manually at the bedside while upright in bed and got 125/70. Lab Results: Laboratory Results - last 24 hr 12/26/17 05:31 WBC 13.6 H RBC 4.86 Hgb 14.2 Hct 42 MCV 86 MCH 29 MCHC 34 RDW 14 Plt Count 331 MPV 9 Neut % (Auto) 68.2 Lymph % (Auto) 19.9 L [place] % (Auto) 10.0 H Eos % (Auto) 0.9 Baso % (Auto) 1.0 Absolute Neuts (auto) 9.3 H Absolute Lymphs (auto) 2.7 Absolute Monos (auto) 1.4 H Absolute Eos (auto) 0.1 Absolute Basos (auto) 0.1 Absolute Nucleated RBC 0 Nucleated RBC % 0 Exam: GEN: No acute distress. Alert and appropriate. HEENT: L facial droop. Left gaze preference, but today she is better about addressing me on her right side. LUNGS: Clear bilaterally HEART: Regular rate and rhythm ABDOMEN: Soft, + BS, non-tender, non-distended NEUROLOGIC: Right side is flaccid. Dysarthric. EXTREMITIES: No edema. SKIN: Right heel denuded (present on admission) with some mild drainage. Does not appear infected. Assessment/Plan: 77yo woman s/p CVA with right hemiplegia, dysphagia, dysarthria, and cognitive impairment. 1. 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 Prozac started today. 2. Dysphagia: Pureed Texture, nectar thick liquids 3. Right heel ulcer: Doing mepilex dressings. Multipodus boot with hourly checks and adjustments scheduled. 4. P. Atrial Fibrillation: Pradaxa/Lopressor 5. C. Diff: Oral Vanco until 12/30 and on Culturelle BID. Change colace to prn. 6. Hypertension: It is better once she is sitting up. I do not want to add another agent and make her hypotensive. HOB elevated to 30deg when in bed and if not sleeping, have vitals taken with her sitting up. 7. Mild leukocytosis: Currently treated for C.diff with oral vanco. Given urine incontinence and stool incontinence will check UA. Will need to do by straight cath. recheck cbc Thursday. Leukocytosis may also be related to heel ulcer. 8. Advanced Directives: Has MOLST; DNR 9. Estimated LOS: 6 weeks. 12/26/17 10:09
[2017-12-26 16:00] LABS: Urine Appearance Turbid; Urine Blood 3+ (Negative); Urine Color Yellow; Urine Ketones Negative (Negative); Urine Protein 2+(100 mg/dL) (Negative); Urine Specific Gravity 1.011 (1.010-1.030); Urine Urobilinogen Negative (Negative)
[2017-12-26] MEDS: hydrALAZINE TAB* 10 MG PO PRN (16:33)
[2017-12-26] MEDS: Atorvastatin* 80 MG TAB PO SCH (16:33)
[2017-12-26] MEDS: amLODIPine TAB* 5 MG PO SCH (21:02)
[2017-12-26] MEDS: Ciprofloxacin TAB* 250 MG PO SCH (21:06)
[2017-12-27] MEDS: Metoprolol Succinate XL TAB* 50 MG PO SCH (09:01)
[2017-12-27] MEDS: Losartan TAB* 25 MG PO SCH (09:01)
[2017-12-27] MEDS: Vancomycin CAP* 125 MG CAP PO SCH ×4 (09:01→21:09)
[2017-12-27] MEDS: Ciprofloxacin TAB* 250 MG PO SCH ×2 (09:02→21:09)
[2017-12-27] MEDS: Lactobacillus Acidophilu (GG)* 1 CAP CAP PO SCH ×2 (09:02→21:09)
[2017-12-27] MEDS: CMC:Dabigatran CAP(NF) 150 MG CAP PO SCH ×2 (09:02→21:08)
[2017-12-27] MEDS: FLUoxetine CAP* 10 MG PO SCH (09:02)
[2017-12-27] MEDS: Nystatin TOP POWDER* 15 GM BTL TOPICAL SCH ×2 (09:10→21:16)
--- NOTE | 2017-12-27 10:06 | PN ---
Progress Note Date of Service: 12/27/17 Note: CANDI WADE was visited. Nursing notes read and reviewed. Started cipro yesterday for UTI pending culture and sensitivities. Also received hydralazine 1x for SBP >180 and started amlodipine at HS. Seems to be tolerating well and BP better this morning. No chest pain, shortness of breath or abdominal pain. A note was left for me from nursing that her daughter is requesting that patient 's vision and hearing be assessed on the right side. Nursing tried to explain to family that these issues were part of her stroke with left gaze preference. Current Medications: Active Medications Generic Name Dose Route Start Last Admin Trade Name Freq PRN Reason Stop Dose Admin Acetaminophen 650 mg 12/22/17 13:28 Tylenol Tab* PO Q6H PRN FEVER/PAIN Amlodipine Besylate 5 mg 12/26/17 21:00 12/26/17 21:02 Norvasc Tab* PO 5 mg BEDTIME NATHANIEL Administration Atorvastatin Calcium 80 mg 12/23/17 17:00 12/26/17 16:33 Lipitor* PO 80 mg 1700 NATHANIEL Administration Ciprofloxacin 250 mg 12/26/17 21:00 12/27/17 09:02 Cipro Tab* PO 250 mg BID NATHANIEL Administration Dabigatran 150 mg 12/22/17 21:00 12/27/17 09:02 Pradaxa Cap(Nf) PO 150 mg BID NATHANIEL Administration Docusate Sodium 100 mg 12/26/17 09:22 Colace Cap* PO BID PRN CONSTIPATION Fluoxetine HCl 10 mg 12/25/17 09:00 12/27/17 09:02 Prozac Cap* PO 10 mg DAILY NATHANIEL Administration Hydralazine HCl 5 mg 12/26/17 16:08 12/26/17 16:33 Apresoline Tab* PO 5 mg Q6H PRN Administration SBP >180 Lactobacillus Rhamnosus 1 cap 12/24/17 21:00 12/27/17 09:02 Culturelle* PO 1 cap BID NATHANIEL Administration Losartan Potassium 100 mg 12/23/17 09:00 12/27/17 09:01 Cozaar Tab* PO 100 mg DAILY NATHANIEL Administration Magnesium Hydroxide 30 ml 12/22/17 13:28 Milk Of Magnesia Liq* PO Q6H PRN CONSTIPATION Metoprolol Succinate 75 mg 12/23/17 09:00 12/27/17 09:01 Toprol Xl Tab* PO 75 mg DAILY NATHANIEL Administration Nystatin 1 applic 12/24/17 21:00 12/27/17 09:10 Nystatin Top Powder* TOPICAL 1 applic BID NATHANIEL Administration Senna 2 tab 12/22/17 13:28 Senokot Tab* PO BEDTIME PRN CONSTIPATION Vancomycin HCl 125 mg 12/22/17 17:00 12/27/17 09:01 Vancomycin Cap* PO 12/30/17 23:55 125 mg QID NATHANIEL Administration Vital Signs: Vital Signs 12/26/17 12/26/17 12/26/17 10:17 15:47 17:58 Temperature 97.9 F Pulse Rate 60 Respiratory 18 Rate Blood Pressure 185/105 134/78 (mmHg) O2 Sat by Pulse 92 93 Oximetry 12/26/17 12/27/17 12/27/17 20:00 04:28 10:00 Temperature 98.8 F Pulse Rate 82 Respiratory 18 18 Rate Blood Pressure 175/90 145/58 (mmHg) O2 Sat by Pulse 91 Oximetry Lab Results: Laboratory Results - last 24 hr 12/26/17 15:30 Urine Color Yellow Urine Appearance Turbid Urine pH 8.0 Ur Specific [place] 1.011 Urine Protein 2+(100 mg/dl) H Urine Ketones Negative Urine Blood 3+ H Urine Nitrate Positive H Urine Bilirubin Negative Urine Urobilinogen Negative Ur Leukocyte Esterase 3+ H Urine WBC (Auto) 3+(>20/hpf) H Urine RBC (Auto) 3+(>10/hpf) H Ur Transition Epith Cell Present H Urine Bacteria Absent Urine Yeast Present H Urine Glucose Negative Exam: GEN: No acute distress. Alert and appropriate. HEENT: L facial droop. Left gaze preference, but improving. LUNGS: Clear bilaterally HEART: Regular rate and rhythm ABDOMEN: Soft, + BS, non-tender, non-distended NEUROLOGIC: CN II-XII intact except for right CN VII palsy. EOMI. Able to hear bilaterally. Visual lucero intact. She is showing some trace hip adduction on the right. EXTREMITIES: No edema. Assessment/Plan: 77yo woman s/p CVA with right hemiplegia, dysphagia, dysarthria, and cognitive impairment. 1. 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 Prozac started today. 2. Dysphagia: Pureed Texture, nectar thick liquids 3. Right heel ulcer: Doing mepilex dressings. Multipodus boot with hourly checks and adjustments scheduled. 4. P. Atrial Fibrillation: Pradaxa/Lopressor 5. C. Diff: Oral Vanco until 12/30 and on Culturelle BID. Changed colace to prn. 6. Hypertension: Cozaar and Lopressor. Amlodipine 5mg qhs added on 12/26/17, with prn hydralazine. 7. Mild leukocytosis: Currently treated for C.diff with oral vanco. Possible UTI so cipro added 12/26/17 (today is day 2). Oxygen saturations seem a bit lower. She is an aspiration risk. Check CXR today and use incentive spirometer. Leukocytosis may also be related to heel ulcer. Recheck CBC Thursday. 8. Advanced Directives: Has MOLST; DNR 9. Estimated LOS: 6 weeks. 12/27/17 10:06
--- NOTE | 2017-12-27 11:30 | RAD ---
Indication: Hypoxia. 2 views of the chest demonstrates hyperinflated lung lucero. No alveolar consolidation is noted. No pleural fluid is identified. Osteopenia is noted. IMPRESSION: Hyperinflated lung lucero. No active cardiopulmonary disease is noted
[2017-12-27] MEDS: Atorvastatin* 80 MG TAB PO SCH (16:59)
[2017-12-27] MEDS: amLODIPine TAB* 5 MG PO SCH (21:09)
[2017-12-28 06:40] LABS: ABS Basophils 0.1 10^3/ul (0-0.2); ABS Eosinophils 0.1 10^3/ul (0-0.6); ABS Lymphocytes 2.3 10^3/ul (1.0-4.8); ABS Monocytes 1.4 10^3/ul (0-0.8); ABS Neutrophils 9.2 10^3/ul (1.5-7.7); ABS Nucleated RBC 0 10^3/ul; Hematocrit 42 % (35-47); Hemoglobin 14.5 g/dl (12.0-16.0); Lymphocyte % 17.3 % (25-47); Mean Corpuscular HGB Conc 34 g/dl (31-36); Mean Corpuscular Hemoglobin 29 pg (27-31); Mean Corpuscular Volume 85 fL (80-97); Mean Platelet Volume 9 um3 (7.4-10.4); Nucleated Red Blood Cells % 0.2; Platelet Count 411 10^3/ul (150-450); Red Cell Distribution Width 15 % (10.5-15); White Blood Count 13.1 10^3/ul (3.5-10.8)
[2017-12-28] MEDS: Vancomycin CAP* 125 MG CAP PO SCH ×4 (08:12→20:42)
[2017-12-28] MEDS: Ciprofloxacin TAB* 250 MG PO SCH ×2 (08:12→20:41)
[2017-12-28] MEDS: Losartan TAB* 25 MG PO SCH (08:12)
[2017-12-28] MEDS: CMC:Dabigatran CAP(NF) 150 MG CAP PO SCH ×2 (08:12→20:42)
[2017-12-28] MEDS: Lactobacillus Acidophilu (GG)* 1 CAP CAP PO SCH ×2 (08:12→20:42)
[2017-12-28] MEDS: FLUoxetine CAP* 10 MG PO SCH (08:12)
[2017-12-28] MEDS: Metoprolol Succinate XL TAB* 50 MG PO SCH (08:12)
[2017-12-28] MEDS: Nystatin TOP POWDER* 15 GM BTL TOPICAL SCH ×2 (08:25→20:42)
[2017-12-28] MEDS: Atorvastatin* 80 MG TAB PO SCH (17:14)
--- NOTE | 2017-12-28 17:49 | PN ---
Progress Note Date of Service: 12/28/17 Note: CANDI WADE was visited. Therapy notes read and reviewed. Her urine culture grew out Klebsiella and Providencia. She is on Cipro 250 BID. Await final sensitivities. She remains with almost no movement on right and a left gaze preference Current Medications: Active Medications Generic Name Dose Route Start Last Admin Trade Name Freq PRN Reason Stop Dose Admin Acetaminophen 650 mg 12/22/17 13:28 Tylenol Tab* PO Q6H PRN FEVER/PAIN Amlodipine Besylate 5 mg 12/26/17 21:00 12/27/17 21:09 Norvasc Tab* PO 5 mg BEDTIME NATHANIEL Administration Atorvastatin Calcium 80 mg 12/23/17 17:00 12/28/17 17:14 Lipitor* PO 80 mg 1700 NATHANIEL Administration Ciprofloxacin 250 mg 12/26/17 21:00 12/28/17 08:12 Cipro Tab* PO 250 mg BID NATHANIEL Administration Dabigatran 150 mg 12/22/17 21:00 12/28/17 08:12 Pradaxa Cap(Nf) PO 150 mg BID NATHANIEL Administration Docusate Sodium 100 mg 12/26/17 09:22 Colace Cap* PO BID PRN CONSTIPATION Fluoxetine HCl 10 mg 12/25/17 09:00 12/28/17 08:12 Prozac Cap* PO 10 mg DAILY NATHANIEL Administration Hydralazine HCl 5 mg 12/26/17 16:08 12/26/17 16:33 Apresoline Tab* PO 5 mg Q6H PRN Administration SBP >180 Lactobacillus Rhamnosus 1 cap 12/24/17 21:00 12/28/17 08:12 Culturelle* PO 1 cap BID NATHANIEL Administration Losartan Potassium 100 mg 12/23/17 09:00 12/28/17 08:12 Cozaar Tab* PO 100 mg DAILY NATHANIEL Administration Magnesium Hydroxide 30 ml 12/22/17 13:28 Milk Of Magnesia Liq* PO Q6H PRN CONSTIPATION Metoprolol Succinate 75 mg 12/23/17 09:00 12/28/17 08:12 Toprol Xl Tab* PO 75 mg DAILY NATHANIEL Administration Nystatin 1 applic 12/24/17 21:00 12/28/17 08:25 Nystatin Top Powder* TOPICAL 1 applic BID NATHANIEL Administration Senna 2 tab 12/22/17 13:28 Senokot Tab* PO BEDTIME PRN CONSTIPATION Vancomycin HCl 125 mg 12/22/17 17:00 12/28/17 17:14 Vancomycin Cap* PO 12/30/17 23:55 125 mg QID NATHANIEL Administration Vital Signs: Vital Signs Temp Pulse Resp BP Pulse Ox 98.8 F 56 20 150/80 97 12/28/17 16:32 12/28/17 16:32 12/28/17 16:32 12/28/17 16:32 12/28/17 16:32 Lab Results: Laboratory Results - last 24 hr 12/28/17 06:25 WBC 13.1 H RBC 5.00 Hgb 14.5 Hct 42 MCV 85 MCH 29 MCHC 34 RDW 15 Plt Count 411 MPV 9 Neut % (Auto) 70.3 Lymph % (Auto) 17.3 L Thurston % (Auto) 10.4 H Eos % (Auto) 1.0 Baso % (Auto) 1.0 Absolute Neuts (auto) 9.2 H Absolute Lymphs (auto) 2.3 Absolute Monos (auto) 1.4 H Absolute Eos (auto) 0.1 Absolute Basos (auto) 0.1 Absolute Nucleated RBC 0 Nucleated RBC % 0.2 Exam: HEENT: L facial droop. Left gaze preference, but improving. LUNGS: Clear bilaterally HEART: Regular rate and rhythm ABDOMEN: Soft, + BS, non-tender, non-distended NEUROLOGIC: alert. Some trace hip movements on right, nothing yet in arm. Assessment/Plan: 1. 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 Will increase Prozac to 20 mg. 2. Dysphagia: Pureed Texture, nectar thick liquids 3. Right heel ulcer: Doing mepilex dressings. Multipodus boot with hourly checks and adjustments scheduled. 4. P. Atrial Fibrillation: Pradaxa/Lopressor 5. C. Diff: Oral Vanco until 12/30 and on Culturelle BID. Still with diarrhea 6. Hypertension: Cozaar and Lopressor. Amlodipine 5mg qhs added on 12/26/17, with prn hydralazine. 7. Mild leukocytosis: Currently treated for C.diff with oral vanco. Possible UTI so cipro added 12/26/17 (today is day 2). Oxygen saturations seem a bit lower. CXR did not show pneumonia. Urine Cx: Klebsiella and Providencia 8. Advanced Directives: Lindsey MOLST; DNR 12/28/17 17:51
[2017-12-28] MEDS: amLODIPine TAB* 5 MG PO SCH (20:41)
[2017-12-29] MEDS: Metoprolol Succinate XL TAB* 50 MG PO SCH (08:01)
[2017-12-29] MEDS: Ciprofloxacin TAB* 250 MG PO SCH ×2 (08:01→19:49)
[2017-12-29] MEDS: Lactobacillus Acidophilu (GG)* 1 CAP CAP PO SCH ×2 (08:01→19:49)
[2017-12-29] MEDS: Vancomycin CAP* 125 MG CAP PO SCH ×4 (08:01→19:49)
[2017-12-29] MEDS: CMC:Dabigatran CAP(NF) 150 MG CAP PO SCH ×2 (08:01→19:49)
[2017-12-29] MEDS: FLUoxetine CAP* 20 MG PO SCH (08:02)
[2017-12-29] MEDS: Losartan TAB* 25 MG PO SCH (08:05)
[2017-12-29] MEDS: Nystatin TOP POWDER* 15 GM BTL TOPICAL SCH ×2 (08:05→19:49)
--- NOTE | 2017-12-29 12:37 | PMRUTEAM ---
PMRU: Goals Current Status: Nursing: Current Status Skin Deviations [Right Lower Abrasion Leg] Skin Deviations [Buttocks] Other Skin Deviations [Right Heel] Wound Skin Deviations [Left Heel] Other Skin Deviation Description [ abrasion x2, scabbed over Right Lower Leg] Skin Deviation Description [ blanchable redness Buttocks] Skin Deviation Description [ mepelex Right Heel] Skin Deviation Description [ redness, elevated Left Heel] Wound Stage [Right Heel] II Physical Therapy: Current Status Bed Mobility Assistance Mod Assist,Max Assist Transfer Moblility Assistance Mod Assist,Max Assist Transfer/Bed Mobility None Recommended Devices Transfer Mobility Comment mod to max A x 1 SPT Ambulation Assistance Unable Ambulation Assistive Devices Alpesh Walker Ambulation Comment Pt. is able to transition from sit to stand min to mod A x 1. Stairs Assistance Not Tested Curb Not Tested Occupational Therapy: Current Status Upper Body Dressing Max Asst Lower Body Dressing Total Assist Bathing Max Asst Toileting Total Assist,2 Person Assist Toilet Transfer Mod Assist,Max Asst,2 Person Assist Toilet Transfer Progress mod-maxA x 1-2 Shower Transfer Progress TBA Eating Supervision,Min Assist Eating Progress occasional cues for right side of tray, significant increased time Rec Therapy: Current Status Summary of Assessment and RT assessment complete and pt. is aware of RT Clinical Impression services. Pt. engages in word puzzles during free -time, will con't to provide activities. Pt. has been pleasant and cooperative during visits. Treatment Goals Pt. will engage in recreation and leisure activities while on the unit. Treatment Plan Provide RT services and encourage involvement. Social Work: Current Status Discharge Plan return home with home care [facility] and family support Potential for Family Training pt's daughter and granddaughter are involved and attentive Anticipated Discharge Home Destination Discharge With home care [facility] and family support Nutrition: Current Status Monitoring Pt reports that her appetite is "not good," and isn't noting any improvement. Intake appears adequate per intake records: 50-100% of meals. Pt does not like the pureed texture or thickened beverages; explained why pureed and nectar-thick texture ordered; pt seemed to understand. In addition to applesauce, pt does not like yogurt, which is being offered to her in the mornings by staff. Pt does like the Ensure Pudding with meals. Pt willing to have a strawberry milkshake with meals, so will send. Recommend liberalizing diet to IRA to allow a wider range of food options. Daily liquid BMs noted; pt is receiving Culturelle and continues on abx. Ensure adequate hydration to meet needs d/t losses. Speech: Current Status Assessment Pt will continue to benefit from skilled speech pathology services. Goals: Physical Therapy: Initial Goals Bed Mobility Assistance Independent Transfer Mobility Assistance Independent Transfer/Bed Mobility Alpesh Walker Recommended Devices Ambulation Independent Ambulation Recommended Devices Alpesh Walker Ambulation Distance 50 Stairs Assistance Independent Stair Recommended Devices One Rail Number of Stairs 5 Physical Therapy: Updated Goals Bed Mobility Assistance Independent Transfer Mobility Assistance Independent Transfer/Bed Mobility Alpesh Walker Recommended Devices Ambulation Assistance Independent Ambulation Assistive Devices Alpesh Walker Stairs Assistance Independent Stairs Recommended Devices One Rail Number of Stairs 5 Occupational Therapy: Initial Goals Goals to be Completed in (Days 4-6 weeks ) Upper Body Bathing Routine Modified Independent with Lower Body Bathing Routine Modified Independent with Upper Body Dressing Routine Modified Independent with Lower Body Dressing Routine Modified Independent with Toilet Hygeine and Clothing Modified Independent with Management Routine Toilet Transfer Routine Modified Independent with Step-In Shower Transfer Modified Independent with Routine Tub Transfer Routine Modified Independent with Functional Transfers for ADL Modified Independent with Grooming Routine Modified Independent with Feeding Routine Modified Independent with Nutrition: Goals Intervention Goals 1. pt will tolerate least-restrictive diet texture and liquid consistency without s/sx aspiration 2. adequate po intake to maintain lean body mass and hydration; no clinical s/sx dehydration 3. bowel pattern will be regulated; no c/o diarrhea (or constipation) 4. Skin will show signs of healing without further breakdown Speech: Goals Speech Goal 1 Swallowing Goal 1 Comments Long-Term Goal: Pt will tolerate least restrictive diet consistencies with no clinical s/s or complications from aspiration. Short-Term Goal 1: Pt will tolerate pureed consistency and nectar liquids with no clinical s/ s or complications from aspiration and adequate PO intake. Short-Term Goal 2: Pt will will tolerate thin water independently with minimal clinical s/s aspiration and demonstrate understanding and ability to follow precautions to tolerate free water protocol without complications from aspiration. Status: Onoing. Pt tolerated adquate intake of pureed consistency, and reduced intake of nectar liquids. Free water protocol has been initiated to maintain adequate hydration, to enable pt to safely practice swallowing techniques, and for improved quality of life. CONTRACTOR GENERAL ENGINEERING provided skilled intraoral examination and care to remove oral residue after meal, and instructed pt to perform oral care with 75% accuracy given moderate cueing. Pt demonstrated manual apraxia ad corrected her oral care procedure after exfz-onmg-prco instruction. Pt demonstrated precautions of small sips and chin tuck independently, and required minimal cueing to use head-turn to Left. CONTRACTOR GENERAL ENGINEERING consulted and educated provider and nursing staff about free water protocol and precautions. Speech Goal 2 Problem Solving Speech Goal 2 Comments Long-Term Goal: Pt will solve functional daily problems independently using compensatory strategies as needed. Short-term goal: Pt will attend to and recall orientation and her right-sided deficits, and demonstrate use of compensatory strategies to solve simple memory, feeding and self-care problems. Status: Ongoing. CONTRACTOR GENERAL ENGINEERING provided simple, enlarged printed word puzzles . Pt required [id number] assistance to initiate writing with her unaffected nondominant Left hand, and maximal verbal and visual cueing to copy/spell target words. For simple word search/ crossword, pt demonstrated reduced awareness of reading and writing errors given maximum skilled instuction and cueing, such as window-boxing target reading lines, and rereading her writing. Social Work: Goals Discharge Plan return home with home care [facility] and family support Potential for Family Training pt's daughter and granddaughter are involved and attentive Anticipated Discharge Home Destination Discharge With home care [facility] and family support Care Plan: Care Plan ADL's - Improve/Maintain Start: 12/22/17 15:29 Freq: QSHIFT Status: Active Target: Protocol: Activity Type Activity Date Activity User E-Sign Co-Sign Detail Recorded Client Recorded Date Recorded By Document 12/28/17 14:15 [id number] 12/28/17 14:15 [id number] 12/28/17 14:15 PMRU Outcome: ADL's/ADL Transfers Orders/Interventions Occupational Therapy Evaluation & Treatment Communication Tool in Patient Room Address Deficits Secondary To: CVA Patient to receive OT 5x/wk for 60-120 Therex min/day Self Care Management Group Therapy Neuromuscular ReEducation UE/LE ADL's with Assist Yes: Ken ADL Transfers with Assist Yes: Ken Toileting: Transfers,Clothing Management Yes: Ken ,Hygeine w/Assist Light Kitchen/Laundry w/Assist Yes: Lilly Progression Toward Outcome/Goals Progressing Outcome/Goals Met Pt participated well. Pt demo' d improved sensation assessment compated to on initial evaluation this date, also demonstrated greater ability to visually scan and attend to right side during course of ADL as well as looking at this junior technical writer on right side during treatment session with less cueing required. Communication-Improve/Maintain Start: 12/24/17 02:06 Freq: QSHIFT Status: Active Target: Protocol: Activity Type Activity Date Activity User E-Sign Co-Sign Detail Recorded Client Recorded Date Recorded By Document 12/28/17 23:48 [id number] 12/28/17 23:48 [id number] 12/28/17 23:48 PMRU Outcome: Communication/Cognitive Status Outcome/Goals Use Comm Tools/ Devices Makes Needs Known Effectively Other Outcomes/Goals Long-Term Goal: Pt will tolerate least restrictive diet consistencies with no clinical s/s or complications from aspiration . Long-Term Goal: Pt will solve functional daily problems independently using compensatory strategies as needed. Short-term goal : Pt will attend to and recall orientation and her right- sided deficits, and demonstrate use of compensatory strategies to solve simple memory, feeding and self-care problems. Short-Term Goal : Pt will will tolerate pureed consistency and nectar thick liquids w /o clinical s/s or complications from aspiration Short-Term Goal : Pt will will tolerate thin water independently with minimal clinical s/s aspiration and demonstrate understanding and ability to follow precautions to tolerate free water protocol without complications from aspiration . Progression Toward Outcomes/Goals Goals Adjusted Coping/Psych-Improve/Maintain Start: 12/24/17 02:06 Freq: QSHIFT Status: Active Target: Protocol: Activity Type Activity Date Activity User E-Sign Co-Sign Detail Recorded Client Recorded Date Recorded By Document 12/28/17 23:48 [id number] 12/28/17 23:48 [id number] 12/28/17 23:48 PMRU Outcome: Coping/Psychosocial Coping Outcome/Goals Verbalization of Acceptance of Rehab Admit Willingness to Participate in Treatment Plan and Basic Needs Psychosocial Outcome/Goals Maintain/ Improve Emotional Health Cooperate/ Participate in Plan Progression Toward Outcome/Goals - Progressing Coping Progression Toward Outcome/Goals - Progressing Psychosocial Discharge Planning - Improve/Maintain Start: 12/24/17 02:06 Freq: QSHIFT Status: Active Target: Protocol: Activity Type Activity Date Activity User E-Sign Co-Sign Detail Recorded Client Recorded Date Recorded By Document 12/28/17 23:48 [id number] 12/28/17 23:48 [id number] 12/28/17 23:48 PMRU Outcome: Discharge Planning Identify Patient Needs yes Update Patient Family No Outcome/Goals Demonstrates Understanding of Discharge Plan Progression Toward Outcome/Goals Progressing Education-Improve/Maintain Start: 12/24/17 02:06 Freq: QSHIFT Status: Active Target: Protocol: Activity Type Activity Date Activity User E-Sign Co-Sign Detail Recorded Client Recorded Date Recorded By Document 12/28/17 23:48 [id number] 12/28/17 23:48 [id number] 12/28/17 23:48 PMRU Outcome: Education Outcome/Goals Demonstrate/ Verbalize Understanding of Written Discharge Instructions Demonstrates Skills Encourage Questions Progression Toward Outcome/Goals Progressing /GI-Improve/Maintain Start: 12/24/17 02:06 Freq: QSHIFT Status: Active Target: Protocol: Activity Type Activity Date Activity User E-Sign Co-Sign Detail Recorded Client Recorded Date Recorded By Document 12/28/17 23:48 [id number] 12/28/17 23:48 [id number] 12/28/17 23:48 PMRU Outcome: Genitourinary/ Gastrointestinal Genitourinary- Outcome/Goals Maintain/ Achieve Urinary Continence Remain Free of Hospital- Acquired UTI Gastrointestinal-Outcome/Goals Maintain/ Achieve Bowel Regularity in Accordance with Pt's Baseline Prevent Constipation Progression Toward Outcome/Goals - Not Progressing Progression Toward Outcome/Goals - GI Not Progressing Medication Administration Start: 12/24/17 02:06 Freq: QSHIFT Status: Active Target: Protocol: Activity Type Activity Date Activity User E-Sign Co-Sign Detail Recorded Client Recorded Date Recorded By Document 12/28/17 23:48 [id number] 12/28/17 23:48 [id number] 12/28/17 23:48 PMRU Outcome: Medication Administration Assess Patient Knowledge/Teach Med No Education for all Meds Outcome/Goals Patient Independent with Medication Administration at Home Demonstrates Understanding Progression Towards Outcome/Goals Progressing Is Patient Going Home on Lovenox? No Mobility- Improve/Maintain Start: 12/22/17 18:22 Freq: QSHIFT Status: Active Target: Protocol: Activity Type Activity Date Activity User E-Sign Co-Sign Detail Recorded Client Recorded Date Recorded By Document 12/25/17 17:50 [id number] 12/25/17 17:50 [id number] 12/25/17 17:50 PMRU Outcome: Mobility Physical Therapy Evaluation and Yes Treatment Activity OOB with Assistance Yes Device Yes Assistance Yes Patient to be seen 5x/wk for 60-120 min/ Therex day for: Mobility Training Gait Training W/C Mobility Balance Outcome/Goals Maintain/ Achieve Baseline Mobility Status Improve Mobility Status Demonstrates Proper Use of Assistive Devices Free from Complications of Immobility Progression Toward Outcome/Goals Progressing Bed Mobility Yes: independent Transfers Yes: independnet with alpesh walker Gait x ft Yes: independent with alpesh walker to household distances (50') Up/Down Stairs Yes: independent with 1 rail up/ down 5 Neurological- Improve/Maintain Start: 12/24/17 02:06 Freq: QSHIFT Status: Active Target: Protocol: Activity Type Activity Date Activity User E-Sign Co-Sign Detail Recorded Client Recorded Date Recorded By Document 12/28/17 23:48 [id number] [id number] 12/28/17 23:48 [id number] 12/28/17 23:48 PMRU Outcome: Neurological Weakness/Aphasia Weakness Right Side Outcome/Goals Maintain/ Achieve Baseline Neurological Status Improve Neurological Status Prevent Avoidable Neurological Decline Demonstrate Knowledge of Prevention/Tx of Neuro Disorders/ Complication Maintain/ Improve Strength/ROM Progression Toward Outcome/Goals Progressing Nutrition/Swallowing- Improve/Maintain Start: 12/24/17 02:06 Freq: QSHIFT Status: Active Target: Protocol: Activity Type Activity Date Activity User E-Sign Co-Sign Detail Recorded Client Recorded Date Recorded By Document 12/28/17 23:48 [id number] [id number] 12/28/17 23:48 [id number] 12/28/17 23:48 PMRU Outcome: Nutrition/Swallowing Outcome/Goals Demonstrates Adequate Hydration/ Prevents Dehydration Progression Toward Outcome/Goals Progressing Safety- Improve/Maintain Start: 12/24/17 02:06 Freq: QSHIFT Status: Active Target: Protocol: Activity Type Activity Date Activity User E-Sign Co-Sign Detail Recorded Client Recorded Date Recorded By Document 12/28/17 23:48 [id number] 12/28/17 23:48 [id number] 12/28/17 23:48 PMRU Outcome: Safety Outcome/Goals Remain Free of Injury or Harm Cooperates with Safety Measures for Least Restrictive Environment Prevent Falls/ Injury Progression Toward Outcome/Goals Progressing Outcome/Goals Met Comment PA in place Skin- Improve/Maintain Start: 12/24/17 02:06 Freq: QSHIFT Status: Active Target: Protocol: Activity Type Activity Date Activity User E-Sign Co-Sign Detail Recorded Client Recorded Date Recorded By Document 12/28/17 23:48 [id number] 12/28/17 23:48 [id number] 12/28/17 23:48 PMRU Outcome: Skin Skin Risk Level High Skin Orders Air Mattress Spenco Boots Multipodus Boot Heels Off Bed Turn/Position q2hr While in Bed Outcome/Goals Maintain/ Improve Skin Intergrity Maintain/ Improve Wound Status Progression Toward Outcome/Goals Progressing Outcome/Goals Met Comment multipodus boot to R foot, spenco to L foot Medicine Note: Length of Stay: 5 1/2 weeks Anticipated Discharge Destination: Home Tentative Discharge Date: February 05, 2018 Discharged to: Home
[2017-12-29] MEDS: Atorvastatin* 80 MG TAB PO SCH (17:30)
--- NOTE | 2017-12-29 18:07 | PN ---
Progress Note Date of Service: 12/29/17 Note: CANDI WADE was visited. Therapy notes read and reviewed. She was discussed in interdisciplinary team rounds. Some non-functional movement in RLE. She seems in good spirits and working with therapy Current Medications: Active Medications Generic Name Dose Route Start Last Admin Trade Name Freq PRN Reason Stop Dose Admin Acetaminophen 650 mg 12/22/17 13:28 Tylenol Tab* PO Q6H PRN FEVER/PAIN Amlodipine Besylate 5 mg 12/26/17 21:00 12/28/17 20:41 Norvasc Tab* PO 5 mg BEDTIME NATHANIEL Administration Atorvastatin Calcium 80 mg 12/23/17 17:00 12/29/17 17:30 Lipitor* PO 80 mg 1700 NATHANIEL Administration Ciprofloxacin 250 mg 12/26/17 21:00 12/29/17 08:01 Cipro Tab* PO 250 mg BID NATHANIEL Administration Dabigatran 150 mg 12/22/17 21:00 12/29/17 08:01 Pradaxa Cap(Nf) PO 150 mg BID NATHANIEL Administration Docusate Sodium 100 mg 12/26/17 09:22 Colace Cap* PO BID PRN CONSTIPATION Fluoxetine HCl 20 mg 12/28/17 17:54 12/29/17 08:02 Prozac Cap* PO 20 mg DAILY NATHANIEL Administration Hydralazine HCl 5 mg 12/26/17 16:08 12/26/17 16:33 Apresoline Tab* PO 5 mg Q6H PRN Administration SBP >180 Lactobacillus Rhamnosus 1 cap 12/24/17 21:00 12/29/17 08:01 Culturelle* PO 1 cap BID NATHANIEL Administration Losartan Potassium 100 mg 12/23/17 09:00 12/29/17 08:05 Cozaar Tab* PO 100 mg DAILY NATHANIEL Administration Magnesium Hydroxide 30 ml 12/22/17 13:28 Milk Of Magnesia Liq* PO Q6H PRN CONSTIPATION Metoprolol Succinate 75 mg 12/23/17 09:00 12/29/17 08:01 Toprol Xl Tab* PO 75 mg DAILY NATHANIEL Administration Nystatin 1 applic 12/24/17 21:00 12/29/17 08:05 Nystatin Top Powder* TOPICAL 1 applic BID NATHANIEL Administration Senna 2 tab 12/22/17 13:28 Senokot Tab* PO BEDTIME PRN CONSTIPATION Vancomycin HCl 125 mg 12/22/17 17:00 12/29/17 17:30 Vancomycin Cap* PO 12/31/17 23:55 125 mg QID NATHANIEL Administration Vital Signs: Vital Signs Temp Pulse Resp BP Pulse Ox 97.3 F 57 18 139/70 92 12/29/17 16:27 12/29/17 16:27 12/29/17 16:27 12/29/17 16:27 12/29/17 16:27 Exam: HEENT: L facial droop. Left gaze preference, but improving. LUNGS: Clear bilaterally HEART: Regular rate and rhythm ABDOMEN: Soft, + BS, non-tender, non-distended NEUROLOGIC: alert. Some trace hamstring movements on right, nothing yet in arm. Assessment/Plan: 1. 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 Increased Prozac to 20 mg. 2. Dysphagia: Pureed Texture, nectar thick liquids 3. Right heel ulcer: Doing mepilex dressings. Multipodus boot with hourly checks and adjustments scheduled. 4. P. Atrial Fibrillation: Pradaxa/Lopressor 5. C. Diff: Oral Vanco until 12/31 and on Culturelle BID. Still with diarrhea. I have asked ID to see. 6. Hypertension: Cozaar and Lopressor. Amlodipine 5mg qhs added on 12/26/17, with prn hydralazine. 7. Mild leukocytosis: Currently treated for C.diff with oral vanco. UTI on cipro day #4. CXR did not show pneumonia. Urine Cx: Klebsiella and Providencia sens to Cipro 8. Advanced Directives: Has MOLST; DNR 12/29/17 18:08
[2017-12-29] MEDS: amLODIPine TAB* 5 MG PO SCH (19:49)
[2017-12-30] MEDS: Losartan TAB* 25 MG PO SCH (08:37)
[2017-12-30] MEDS: Metoprolol Succinate XL TAB* 50 MG PO SCH (08:37)
[2017-12-30] MEDS: FLUoxetine CAP* 20 MG PO SCH (08:38)
[2017-12-30] MEDS: Vancomycin CAP* 125 MG CAP PO SCH ×4 (08:38→20:05)
[2017-12-30] MEDS: CMC:Dabigatran CAP(NF) 150 MG CAP PO SCH ×2 (08:38→20:06)
[2017-12-30] MEDS: Lactobacillus Acidophilu (GG)* 1 CAP CAP PO SCH ×2 (08:38→20:05)
[2017-12-30] MEDS: Ciprofloxacin TAB* 250 MG PO SCH ×2 (08:38→20:06)
[2017-12-30] MEDS: Nystatin TOP POWDER* 15 GM BTL TOPICAL SCH ×2 (08:59→20:14)
[2017-12-30 09:01] LABS: Hematocrit 47 % (35-47); Mean Corpuscular HGB Conc 34 g/dl (31-36); Mean Corpuscular Hemoglobin 30 pg (27-31); Mean Corpuscular Volume 86 fL (80-97); Mean Platelet Volume 9 um3 (7.4-10.4); Platelet Count 469 10^3/ul (150-450); Red Blood Count 5.43 10^6/ul (4.0-5.4); Red Cell Distribution Width 15 % (10.5-15); White Blood Count 14.3 10^3/ul (3.5-10.8)
[2017-12-30 09:19] LABS: EGFR Non-African American 72.3 (>60)
[2017-12-30 09:24] LABS: ABS Basophils 0.1 10^3/ul (0-0.2); ABS Eosinophils 0.1 10^3/ul (0-0.6); ABS Lymphocytes 2.4 10^3/ul (1.0-4.8); ABS Monocytes 0.8 10^3/ul (0-0.8); ABS Nucleated RBC 0 10^3/ul; Eosinophil % 0.6 % (0-6); Lymphocyte % 16.9 % (25-47); Nucleated Red Blood Cells % 0.1
[2017-12-30] MEDS: Atorvastatin* 80 MG TAB PO SCH (17:12)
[2017-12-30] MEDS: amLODIPine TAB* 5 MG PO SCH (20:05)
--- NOTE | 2017-12-30 20:36 | PN ---
Progress Note Date of Service: 12/30/17 Note: CANDI WADE was visited. Therapy notes read and reviewed. Slow improvement in vision. Tolerating Prozac. Diarrhea may be slowing slightly (2 BMs today vs. 4 yesterday) Current Medications: Active Medications Generic Name Dose Route Start Last Admin Trade Name Freq PRN Reason Stop Dose Admin Acetaminophen 650 mg 12/22/17 13:28 Tylenol Tab* PO Q6H PRN FEVER/PAIN Amlodipine Besylate 5 mg 12/26/17 21:00 12/30/17 20:05 Norvasc Tab* PO 5 mg BEDTIME NATHANIEL Administration Atorvastatin Calcium 80 mg 12/23/17 17:00 12/30/17 17:12 Lipitor* PO 80 mg 1700 NATHANIEL Administration Ciprofloxacin 250 mg 12/26/17 21:00 12/30/17 20:06 Cipro Tab* PO 250 mg BID NATHANIEL Administration Dabigatran 150 mg 12/22/17 21:00 12/30/17 20:06 Pradaxa Cap(Nf) PO 150 mg BID ANTHANIEL Administration Docusate Sodium 100 mg 12/26/17 09:22 Colace Cap* PO BID PRN CONSTIPATION Fluoxetine HCl 20 mg 12/28/17 17:54 12/30/17 08:38 Prozac Cap* PO 20 mg DAILY NATHANIEL Administration Hydralazine HCl 5 mg 12/26/17 16:08 12/26/17 16:33 Apresoline Tab* PO 5 mg Q6H PRN Administration SBP >180 Lactobacillus Rhamnosus 1 cap 12/24/17 21:00 12/30/17 20:05 Culturelle* PO 1 cap BID NATHANIEL Administration Losartan Potassium 100 mg 12/23/17 09:00 12/30/17 08:37 Cozaar Tab* PO 100 mg DAILY NATHANIEL Administration Magnesium Hydroxide 30 ml 12/22/17 13:28 Milk Of Magnesia Liq* PO Q6H PRN CONSTIPATION Metoprolol Succinate 75 mg 12/23/17 09:00 12/30/17 08:37 Toprol Xl Tab* PO 75 mg DAILY NATHANIEL Administration Nystatin 1 applic 12/24/17 21:00 12/30/17 20:14 Nystatin Top Powder* TOPICAL 1 applic BID NATHANIEL Administration Senna 2 tab 12/22/17 13:28 Senokot Tab* PO BEDTIME PRN CONSTIPATION Vancomycin HCl 125 mg 12/22/17 17:00 12/30/17 20:05 Vancomycin Cap* PO 12/31/17 23:55 125 mg QID NATHANIEL Administration Vital Signs: Vital Signs Temp Pulse Resp BP Pulse Ox 98.0 F 55 20 132/68 93 12/30/17 16:54 12/30/17 16:54 12/30/17 16:54 12/30/17 16:54 12/30/17 16:54 Lab Results: Laboratory Results - last 24 hr 12/30/17 12/30/17 08:34 08:34 WBC 14.3 H RBC 5.43 H Hgb 16.0 Hct 47 MCV 86 MCH 30 MCHC 34 RDW 15 Plt Count 469 H D MPV 9 Neut % (Auto) 76.6 Lymph % (Auto) 16.9 L [place] % (Auto) 5.3 Eos % (Auto) 0.6 Baso % (Auto) 0.6 Absolute Neuts (auto) 11.0 H Absolute Lymphs (auto) 2.4 Absolute Monos (auto) 0.8 Absolute Eos (auto) 0.1 Absolute Basos (auto) 0.1 Absolute Nucleated RBC 0 Nucleated RBC % 0.1 Sodium 136 Potassium 3.2 L Chloride 101 Carbon Dioxide 26 Anion Gap 9 BUN 22 Creatinine 0.77 Est GFR ( Amer) 93.0 Est GFR (Non-Af Amer) 72.3 BUN/Creatinine Ratio 28.6 H Glucose 185 H Calcium 9.4 Total Bilirubin 0.60 AST 21 ALT 22 Alkaline Phosphatase 122 H Total Protein 6.9 Albumin 3.5 Globulin 3.4 Albumin/Globulin Ratio 1.0 Exam: HEENT: L facial droop. Left gaze preference, but improving. LUNGS: Clear bilaterally HEART: Regular rate and rhythm ABDOMEN: Soft, + BS, non-tender, non-distended NEUROLOGIC: alert. Some trace hamstring movements on right, nothing yet in arm. Assessment/Plan: 1. 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 Increased Prozac to 20 mg. 2. Dysphagia: Pureed Texture, nectar thick liquids 3. Right heel ulcer: Doing mepilex dressings. Multipodus boot with hourly checks and adjustments scheduled. 4. P. Atrial Fibrillation: Pradaxa/Lopressor 5. C. Diff: Oral Vanco until 3/1 and on Culturelle BID. Still with diarrhea. I have asked ID to see. 6. Hypertension: Cozaar and Lopressor. Amlodipine 5mg qhs added on 12/26/17, with prn hydralazine. 7. Mild leukocytosis: Currently treated for C.diff with oral vanco. UTI on cipro day #5. CXR did not show pneumonia. Urine Cx: Klebsiella and Providencia sens to Cipro 8. Advanced Directives: Has MOLST; DNR 12/30/17 20:38
[2017-12-31] MEDS: Ciprofloxacin TAB* 250 MG PO SCH (09:04)
[2017-12-31] MEDS: Vancomycin CAP* 125 MG CAP PO SCH ×3 (09:04→20:49)
[2017-12-31] MEDS: Metoprolol Succinate XL TAB* 50 MG PO SCH (09:04)
[2017-12-31] MEDS: Lactobacillus Acidophilu (GG)* 1 CAP CAP PO SCH ×2 (09:04→20:49)
[2017-12-31] MEDS: Losartan TAB* 25 MG PO SCH (09:04)
[2017-12-31] MEDS: CMC:Dabigatran CAP(NF) 150 MG CAP PO SCH ×2 (09:04→20:49)
[2017-12-31] MEDS: FLUoxetine CAP* 20 MG PO SCH (09:04)
[2017-12-31] MEDS: Nystatin TOP POWDER* 15 GM BTL TOPICAL SCH ×2 (09:04→21:04)
[2017-12-31] MEDS: Atorvastatin* 80 MG TAB PO SCH (17:15)
--- NOTE | 2017-12-31 19:32 | PN ---
Progress Note Date of Service: 12/31/17 Note: CANDI WADE was visited. Therapy notes read and reviewed. Appreciate Dr. Still's help. Her Cipro was stopped and she will continue Vanco for a few more days. Current Medications: Active Medications Generic Name Dose Route Start Last Admin Trade Name Freq PRN Reason Stop Dose Admin Acetaminophen 650 mg 12/22/17 13:28 Tylenol Tab* PO Q6H PRN FEVER/PAIN Amlodipine Besylate 5 mg 12/26/17 21:00 12/30/17 20:05 Norvasc Tab* PO 5 mg BEDTIME NATHANIEL Administration Atorvastatin Calcium 80 mg 12/23/17 17:00 12/31/17 17:15 Lipitor* PO 80 mg 1700 NATHANIEL Administration Dabigatran 150 mg 12/22/17 21:00 12/31/17 09:04 Pradaxa Cap(Nf) PO 150 mg BID NATHANIEL Administration Docusate Sodium 100 mg 12/26/17 09:22 Colace Cap* PO BID PRN CONSTIPATION Fluoxetine HCl 20 mg 12/28/17 17:54 12/31/17 09:04 Prozac Cap* PO 20 mg DAILY NATHANIEL Administration Hydralazine HCl 5 mg 12/26/17 16:08 12/26/17 16:33 Apresoline Tab* PO 5 mg Q6H PRN Administration SBP >180 Lactobacillus Rhamnosus 1 cap 12/24/17 21:00 12/31/17 09:04 Culturelle* PO 1 cap BID NATHANIEL Administration Losartan Potassium 100 mg 12/23/17 09:00 12/31/17 09:04 Cozaar Tab* PO 100 mg DAILY NATHANIEL Administration Magnesium Hydroxide 30 ml 12/22/17 13:28 Milk Of Magnesia Liq* PO Q6H PRN CONSTIPATION Metoprolol Succinate 75 mg 12/23/17 09:00 12/31/17 09:04 Toprol Xl Tab* PO 75 mg DAILY NATHANIEL Administration Nystatin 1 applic 12/24/17 21:00 12/31/17 09:04 Nystatin Top Powder* TOPICAL 1 applic BID NATHANIEL Administration Senna 2 tab 12/22/17 13:28 Senokot Tab* PO BEDTIME PRN CONSTIPATION Vancomycin HCl 125 mg 12/31/17 14:00 12/31/17 15:12 Vancomycin Cap* PO 01/05/18 23:55 125 mg TID NATHANIEL Administration Vital Signs: Vital Signs Temp Pulse Resp BP Pulse Ox 98.2 F 52 18 120/70 93 12/31/17 16:44 12/31/17 16:44 12/31/17 16:44 12/31/17 16:44 12/31/17 16:44 Exam: HEENT: L facial droop. Left gaze preference, but improving. LUNGS: Clear bilaterally HEART: Regular rate and rhythm ABDOMEN: Soft, + BS, non-tender, non-distended NEUROLOGIC: alert. Some trace hamstring movements on right, nothing yet in arm. Assessment/Plan: 1. 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 Increased Prozac to 20 mg. 2. Dysphagia: Pureed Texture, nectar thick liquids 3. Right heel ulcer: Doing mepilex dressings. Multipodus boot with hourly checks and adjustments scheduled. 4. P. Atrial Fibrillation: Pradaxa/Lopressor 5. C. Diff: Oral Vanco and on Culturelle BID. Still with diarrhea. Dr. Still recommends keeping oral Vanco going a few more days and monitor BMs off Cipro 6. Hypertension: Cozaar and Lopressor. Amlodipine 5mg qhs added on 12/26/17, with prn hydralazine. 7. Advanced Directives: Has MOLST; DNR 12/31/17 19:34
[2017-12-31] MEDS: amLODIPine TAB* 5 MG PO SCH (20:49)
--- NOTE | 2017-12-31 21:40 | CONS ---
CONSULTATION REPORT: DATE OF CONSULT: 12/31/17 REQUESTING PHYSICIAN: Dr. Patel. CONSULTING SERVICE: Infectious Disease. REASON FOR CONSULTATION: Diarrhea. IMPRESSION: 1. Recently diagnosed with C. difficile colitis at [facility]. Not clear if she had preceding antibiotic exposure. She was there for a CVA. She reports frequent liquid stools and some gradual improvement on vancomycin, which she has been taking 4 times a day for 2 weeks. She is down to she thinks every 3 to 4 hours to every 2 hours with loose or soft stools. No abdominal pain. This could be resolving C. difficile colitis or there could be other etiology including a postinfectious irritable bowel versus medication side effects. She has been on Cipro recently for urinary tract infection. 2. Cerebrovascular accident with hemiparesis. 3. Allergies to PENICILLIN and SULFA. 4. Urine culture grew Klebsiella and Providencia on 12/26/17. She has had 6 days of ciprofloxacin. RECOMMENDATIONS: We will continue vancomycin and decrease it to 3 times a day. Follow her stools here and see if she is continuing to have improvement. If not , we will need to broaden the search for other causes. We will also stop ciprofloxacin. HISTORY OF PRESENT ILLNESS: A 77-year-old woman who transferred to the rehab unit here from [facility], she had been taken from home by an ambulance there on 12/13/17 for what was found to be a CVA. She had total occlusion of the left internal carotid. There are no particular interventions done given the timing of events. She was anticoagulated for new diagnosis of atrial fibrillation. She has had some loose stools, so a C. diff test was sent and was found to be positive on 12/19/17 and has been on Flagyl and vancomycin, which was to finish on 12/30/17. She recalls multiple liquid stools per day without abdominal pain or fever. I am not sure if she had had antibiotics beforehand. She thinks her bowel movements have been slowly improving and to the point of having a bowel movement every 3 to 4 hours, which is soft or loose and less liquid. She continues to have no fever, abdominal pain, or night sweats. PAST MEDICAL HISTORY: 1. Stroke in December 2017 with hemiparesis. 2. Hypertension. 3. Atrial fibrillation. ALLERGIES: ASPIRIN, BENADRYL, PENICILLIN, and SULFA. MEDICATIONS: 1. Tylenol. 2. Amlodipine. 3. Lipitor. 4. Pradaxa. 5. Docusate. 6. Fluoxetine. 7. Hydralazine as needed. 8. Lactobacillus. 9. Losartan. 10. Magnesium. 11. Metoprolol. 12. Nystatin topical powder. 13. Vancomycin 125 mg by mouth 4 times a day. 14. Senna. 15. Cipro 500 mg by mouth twice daily. SOCIAL HISTORY: She lives in [place] next door to her daughter. No sick contacts. FAMILY HISTORY: No recurrent infections. REVIEW OF SYSTEMS: A 14-point review of systems was negative except as noted above. PHYSICAL EXAM: Vital Signs: Temperature is 37, heart rate 60, respiratory rate 18, blood pressure 150/70, oxygen saturation 91% on room air. In general, she is awake, not in distress. Neurologic: She is oriented x3. Follows all commands. Answers questions. She has a right facial droop. Neck is supple without nuchal rigidity. Lymph Nodes: There is no inguinal, axillary, or epitrochlear lymphadenopathy. Heart is regular rate and rhythm without murmurs , rubs, or gallops. Lungs are clear to auscultation bilaterally. Abdomen: Soft , nontender, nondistended. There are bowel sounds present. There is no rebound tenderness. Skin: There is no rash or splinter hemorrhages. LABORATORY DATA: White blood cell count 14, hemoglobin 16, platelets 469. Creatinine is 0.7. Urinalysis from 12/26/17 showed leukocyte esterase, white cells, red cells, nitrite positive. Please see impressions and recommendations outlined above, which I have discussed with Dr. Patel. Thank you for asking me to see Ms. Arguello in consultation. [id number]/[facility] #: [id number] [facility]ERYanna
[2018-01-01] MEDS: CMC:Dabigatran CAP(NF) 150 MG CAP PO SCH ×2 (09:43→20:53)
[2018-01-01] MEDS: FLUoxetine CAP* 20 MG PO SCH (09:43)
[2018-01-01] MEDS: Metoprolol Succinate XL TAB* 50 MG PO SCH (09:43)
[2018-01-01] MEDS: Lactobacillus Acidophilu (GG)* 1 CAP CAP PO SCH ×2 (09:43→20:53)
[2018-01-01] MEDS: Nystatin TOP POWDER* 15 GM BTL TOPICAL SCH ×2 (09:44→21:46)
[2018-01-01] MEDS: Vancomycin CAP* 125 MG CAP PO SCH ×3 (09:45→20:53)
[2018-01-01] MEDS: Losartan TAB* 25 MG PO SCH (09:56)
--- NOTE | 2018-01-01 10:16 | PN ---
Progress Note Date of Service: 01/01/18 Note: CANDI WADE was visited. Nursing and therapy notes read and reviewed. Cope a little jittery in OT this morning but it was short-lived and she continued treatment session. No chest pain, shortness of breath or abdominal pain. She says her diarrhea has stopped. Current Medications: Active Medications Generic Name Dose Route Start Last Admin Trade Name Freq PRN Reason Stop Dose Admin Acetaminophen 650 mg 12/22/17 13:28 Tylenol Tab* PO Q6H PRN FEVER/PAIN Amlodipine Besylate 5 mg 12/26/17 21:00 12/31/17 20:49 Norvasc Tab* PO 5 mg BEDTIME NATHANIEL Administration Atorvastatin Calcium 80 mg 12/23/17 17:00 12/31/17 17:15 Lipitor* PO 80 mg 1700 NATHANIEL Administration Dabigatran 150 mg 12/22/17 21:00 01/01/18 09:43 Pradaxa Cap(Nf) PO 150 mg BID NATHANIEL Administration Docusate Sodium 100 mg 12/26/17 09:22 Colace Cap* PO BID PRN CONSTIPATION Fluoxetine HCl 20 mg 12/28/17 17:54 01/01/18 09:43 Prozac Cap* PO 20 mg DAILY NATHANIEL Administration Hydralazine HCl 5 mg 12/26/17 16:08 12/26/17 16:33 Apresoline Tab* PO 5 mg Q6H PRN Administration SBP >180 Lactobacillus Rhamnosus 1 cap 12/24/17 21:00 01/01/18 09:43 Culturelle* PO 1 cap BID NATHANIEL Administration Losartan Potassium 100 mg 12/23/17 09:00 01/01/18 09:56 Cozaar Tab* PO 100 mg DAILY NATHANIEL Administration Magnesium Hydroxide 30 ml 12/22/17 13:28 Milk Of Magnesia Liq* PO Q6H PRN CONSTIPATION Metoprolol Succinate 75 mg 12/23/17 09:00 01/01/18 09:43 Toprol Xl Tab* PO 75 mg DAILY NATHANIEL Administration Nystatin 1 applic 12/24/17 21:00 01/01/18 09:44 Nystatin Top Powder* TOPICAL 1 applic BID NATHANIEL Administration Senna 2 tab 12/22/17 13:28 Senokot Tab* PO BEDTIME PRN CONSTIPATION Vancomycin HCl 125 mg 12/31/17 14:00 01/01/18 09:45 Vancomycin Cap* PO 01/05/18 23:55 125 mg TID NATHANIEL Administration Vital Signs: Vital Signs Temp Pulse Resp BP Pulse Ox 99.0 F 57 20 132/54 92 01/01/18 06:28 01/01/18 06:28 01/01/18 08:00 01/01/18 06:28 01/01/18 08:00 Exam: GEN: No acute distress. Alert and appropriate. HEENT: L facial droop. Left gaze preference. LUNGS: Clear bilaterally HEART: Regular rate and rhythm ABDOMEN: Soft, + BS, non-tender, non-distended NEUROLOGIC: She is showing some right shoulder shrug and trace movement of her right hip. EXTREMITIES: No edema. Assessment/Plan: 77yo woman s/p CVA with right hemiplegia, dysphagia, dysarthria, and cognitive impairment. 1. 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 Prozac to 20 mg. 2. Dysphagia: Pureed Texture, nectar thick liquids 3. Right heel ulcer: mepilex dressings. Multipodus boot with hourly checks and adjustments scheduled. 4. P. Atrial Fibrillation: Pradaxa/Lopressor 5. C. Diff: Oral Vanco and on Culturelle BID. Diarrhea has slowed down now off cipro. Dr. Still recommends keeping oral Vanco going a few more days and monitor BMs off Cipro 6. Hypertension: Cozaar and Lopressor. Amlodipine 5mg qhs added on 12/26/17, with prn hydralazine. 7. Advanced Directives: Has MOLST; DNR 8. Noted ongoing leukocytosis on 12/30 and some hypokalemia. Will recheck labs today. 01/01/18 10:19
[2018-01-01 14:19] LABS: ABS Basophils 0.2 10^3/ul (0-0.2); ABS Eosinophils 0.1 10^3/ul (0-0.6); ABS Lymphocytes 2.7 10^3/ul (1.0-4.8); ABS Monocytes 0.7 10^3/ul (0-0.8); ABS Neutrophils 7.2 10^3/ul (1.5-7.7); ABS Nucleated RBC 0 10^3/ul; Eosinophil % 0.8 % (0-6); Hematocrit 43 % (35-47); Hemoglobin 14.3 g/dl (12.0-16.0); Lymphocyte % 24.6 % (25-47); Mean Corpuscular HGB Conc 33 g/dl (31-36); Mean Corpuscular Hemoglobin 29 pg (27-31); Mean Corpuscular Volume 86 fL (80-97); Mean Platelet Volume 9 um3 (7.4-10.4); Nucleated Red Blood Cells % 0.1; Platelet Count 375 10^3/ul (150-450); Red Blood Count 4.97 10^6/ul (4.0-5.4); Red Cell Distribution Width 14 % (10.5-15); White Blood Count 10.8 10^3/ul (3.5-10.8)
[2018-01-01 14:27] LABS: EGFR Non-African American 66.3 (>60)
[2018-01-01] MEDS: Atorvastatin* 80 MG TAB PO SCH (17:14)
[2018-01-01] MEDS ORDERED: Magnesium Oxide TAB* 400 MG PO ONE ×2 (19:06→19:50)
[2018-01-01] MEDS: amLODIPine TAB* 5 MG PO SCH (20:53)
[2018-01-01] MEDS: Potassium Chlor TAB* 20 MEQ TAB.ER PO SCH (20:53)
[2018-01-02 06:01] LABS: EGFR Non-African American 82.1 (>60)
[2018-01-02] MEDS: Losartan TAB* 25 MG PO SCH (09:52)
[2018-01-02] MEDS: Metoprolol Succinate XL TAB* 50 MG PO SCH (09:52)
--- NOTE | 2018-01-02 09:52 | PN ---
Progress Note Date of Service: 01/02/18 Note: CANDI WADE was visited. Nursing and therapy notes read and reviewed. Her potassium and magnesium were low and she received supplements last night. No chest pain, shortness of breath or abdominal pain. She had 3 incontinent stools yesterday per nursing. She does not have much recollection of it. Current Medications: Active Medications Generic Name Dose Route Start Last Admin Trade Name Freq PRN Reason Stop Dose Admin Acetaminophen 650 mg 12/22/17 13:28 Tylenol Tab* PO Q6H PRN FEVER/PAIN Amlodipine Besylate 5 mg 12/26/17 21:00 01/01/18 20:53 Norvasc Tab* PO 5 mg BEDTIME NATHANIEL Administration Atorvastatin Calcium 80 mg 12/23/17 17:00 01/01/18 17:14 Lipitor* PO 80 mg 1700 NATHANIEL Administration Dabigatran 150 mg 12/22/17 21:00 01/01/18 20:53 Pradaxa Cap(Nf) PO 150 mg BID NATHANIEL Administration Docusate Sodium 100 mg 12/26/17 09:22 Colace Cap* PO BID PRN CONSTIPATION Fluoxetine HCl 20 mg 12/28/17 17:54 01/01/18 09:43 Prozac Cap* PO 20 mg DAILY NATHANIEL Administration Hydralazine HCl 5 mg 12/26/17 16:08 12/26/17 16:33 Apresoline Tab* PO 5 mg Q6H PRN Administration SBP >180 Lactobacillus Rhamnosus 1 cap 12/24/17 21:00 01/01/18 20:53 Culturelle* PO 1 cap BID NATHANIEL Administration Losartan Potassium 100 mg 12/23/17 09:00 01/01/18 09:56 Cozaar Tab* PO 100 mg DAILY NATHANIEL Administration Magnesium Hydroxide 30 ml 12/22/17 13:28 Milk Of Magnesia Liq* PO Q6H PRN CONSTIPATION Magnesium Oxide 800 mg 01/02/18 09:00 Magox 400 Tab* PO DAILY NATHANIEL Metoprolol Succinate 75 mg 12/23/17 09:00 01/01/18 09:43 Toprol Xl Tab* PO 75 mg DAILY NATHANIEL Administration Nystatin 1 applic 12/24/17 21:00 01/01/18 21:46 Nystatin Top Powder* TOPICAL 1 applic BID NATHANIEL Administration Potassium Chloride 20 meq 01/01/18 21:00 01/01/18 20:53 Klor Con Er Tab* PO 20 meq BID NATHANIEL Administration Senna 2 tab 12/22/17 13:28 Senokot Tab* PO BEDTIME PRN CONSTIPATION Vancomycin HCl 125 mg 12/31/17 14:00 01/01/18 20:53 Vancomycin Cap* PO 01/05/18 23:55 125 mg TID NATHANIEL Administration Vital Signs: Vital Signs Temp Pulse Resp BP Pulse Ox 98.4 F 58 24 164/55 92 01/02/18 05:56 01/02/18 05:56 01/02/18 05:56 01/02/18 05:56 01/02/18 05:56 Lab Results: Laboratory Results - last 24 hr 01/01/18 01/01/18 01/01/18 14:06 14:06 14:06 WBC 10.8 RBC 4.97 Hgb 14.3 Hct 43 MCV 86 MCH 29 MCHC 33 RDW 14 Plt Count 375 MPV 9 Neut % (Auto) 66.8 Lymph % (Auto) 24.6 L [place] % (Auto) 6.4 Eos % (Auto) 0.8 Baso % (Auto) 1.4 Absolute Neuts (auto) 7.2 Absolute Lymphs (auto) 2.7 Absolute Monos (auto) 0.7 Absolute Eos (auto) 0.1 Absolute Basos (auto) 0.2 Absolute Nucleated RBC 0 Nucleated RBC % 0.1 Sodium 134 Potassium 3.1 L Chloride 99 L Carbon Dioxide 27 Anion Gap 8 BUN 25 H Creatinine 0.83 Est GFR ( Amer) 85.3 Est GFR (Non-Af Amer) 66.3 BUN/Creatinine Ratio 30.1 H Glucose 176 H Hemoglobin A1c 6.2 H Calcium 8.9 Magnesium 1.5 L 01/02/18 05:42 WBC RBC Hgb Hct MCV MCH MCHC RDW Plt Count MPV Neut % (Auto) Lymph % (Auto) [place] % (Auto) Eos % (Auto) Baso % (Auto) Absolute Neuts (auto) Absolute Lymphs (auto) Absolute Monos (auto) Absolute Eos (auto) Absolute Basos (auto) Absolute Nucleated RBC Nucleated RBC % Sodium 135 Potassium 3.7 Chloride 103 Carbon Dioxide 27 Anion Gap 5 BUN 20 Creatinine 0.69 Est GFR ( Amer) 105.5 Est GFR (Non-Af Amer) 82.1 BUN/Creatinine Ratio 29.0 H Glucose 97 Hemoglobin A1c Calcium 8.8 Magnesium 1.6 L Exam: GEN: No acute distress. Alert and appropriate. HEENT: L facial droop. Left gaze preference. LUNGS: Clear bilaterally HEART: Regular rate and rhythm ABDOMEN: Soft, + BS, non-tender, non-distended NEUROLOGIC: CN VII palsy. trace right shoulder shrug and movement of her right hip. EXTREMITIES: No edema. Assessment/Plan: 77yo woman s/p CVA with right hemiplegia, dysphagia, dysarthria, and cognitive impairment. 1. 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 Prozac to 20 mg. 2. Dysphagia: Pureed Texture, nectar thick liquids 3. Right heel ulcer: mepilex dressings. Multipodus boot with hourly checks and adjustments scheduled. 4. P. Atrial Fibrillation: Pradaxa/Lopressor 5. C. Diff: Oral Vanco and on Culturelle BID. Diarrhea has slowed down off cipro but still some loose incontinent stools. Dr. Still recommends keeping oral Vanco going a few more days and monitor BMs off Cipro 6. Hypertension: Cozaar and Lopressor. Amlodipine 5mg qhs added on 12/26/17, with prn hydralazine. 7. Hyperglycemia: Hgb A1c mildly elevated. I will change to consistent carbohydrate diet, although in speaking with her it does not seem as though she takes in many carbs. Start very low dose metformin 250mg qday tomorrow. Check fingersticks bid. I explained to her how hyperglycemia and diabetes mellitus can increase risk for stroke. She may need to see fashion patternmaker prior to d/ c. I will ask dietary to see her. 8. Hypokalemia/hypomagnesemia: Continue KCL supplement today, then d/c since potassium is better today. Continue Magnesium oxide and recheck Mg with next labs. 9. Leukocytosis: resolved. 10. Advanced Directives: Has MOLST; DNR 01/02/18 09:53
[2018-01-02] MEDS: Lactobacillus Acidophilu (GG)* 1 CAP CAP PO SCH ×2 (09:53→20:42)
[2018-01-02] MEDS: Potassium Chlor TAB* 20 MEQ TAB.ER PO SCH ×2 (09:53→20:56)
[2018-01-02] MEDS: FLUoxetine CAP* 20 MG PO SCH (09:53)
[2018-01-02] MEDS: CMC:Dabigatran CAP(NF) 150 MG CAP PO SCH ×2 (09:53→20:45)
[2018-01-02] MEDS: Magnesium Oxide TAB* 400 MG PO SCH (09:53)
[2018-01-02] MEDS: Vancomycin CAP* 125 MG CAP PO SCH ×3 (09:54→20:43)
[2018-01-02] MEDS: Nystatin TOP POWDER* 15 GM BTL TOPICAL SCH ×2 (10:38→20:55)
[2018-01-02] MEDS: Atorvastatin* 80 MG TAB PO SCH (16:42)
[2018-01-02] MEDS: amLODIPine TAB* 5 MG PO SCH (20:56)
[2018-01-03] MEDS: Metoprolol Succinate XL TAB* 50 MG PO SCH (08:38)
[2018-01-03] MEDS: metFORMIN* 500 MG TAB PO SCH (08:38)
[2018-01-03] MEDS: Vancomycin CAP* 125 MG CAP PO SCH ×3 (08:49→19:58)
[2018-01-03] MEDS: Lactobacillus Acidophilu (GG)* 1 CAP CAP PO SCH ×2 (08:49→19:51)
[2018-01-03] MEDS: FLUoxetine CAP* 20 MG PO SCH (08:49)
[2018-01-03] MEDS: CMC:Dabigatran CAP(NF) 150 MG CAP PO SCH ×2 (08:49→19:50)
[2018-01-03] MEDS: Losartan TAB* 25 MG PO SCH (08:49)
[2018-01-03] MEDS: Magnesium Oxide TAB* 400 MG PO SCH (08:49)
[2018-01-03] MEDS: Nystatin TOP POWDER* 15 GM BTL TOPICAL SCH ×2 (09:33→19:58)
--- NOTE | 2018-01-03 10:34 | PN ---
Progress Note Date of Service: 01/03/18 Note: CANDI WADE was visited. Nursing notes read and reviewed. No chest pain, shortness of breath or abdominal pain. She does not like getting the fingersticks for glucose monitoring that started yesterday. Also, she wants to get off the pureed diet. She wants more meats but only the beef has flavor. She had liquid stool x4 yesterday. Current Medications: Active Medications Generic Name Dose Route Start Last Admin Trade Name Freq PRN Reason Stop Dose Admin Acetaminophen 650 mg 12/22/17 13:28 Tylenol Tab* PO Q6H PRN FEVER/PAIN Amlodipine Besylate 5 mg 12/26/17 21:00 01/02/18 20:56 Norvasc Tab* PO 5 mg BEDTIME NATHANIEL Administration Atorvastatin Calcium 80 mg 12/23/17 17:00 01/02/18 16:42 Lipitor* PO 80 mg 1700 NATHANIEL Administration Dabigatran 150 mg 12/22/17 21:00 01/03/18 08:49 Pradaxa Cap(Nf) PO 150 mg BID NATHANIEL Administration Docusate Sodium 100 mg 12/26/17 09:22 Colace Cap* PO BID PRN CONSTIPATION Fluoxetine HCl 20 mg 12/28/17 17:54 01/03/18 08:49 Prozac Cap* PO 20 mg DAILY NATHANIEL Administration Hydralazine HCl 5 mg 12/26/17 16:08 12/26/17 16:33 Apresoline Tab* PO 5 mg Q6H PRN Administration SBP >180 Lactobacillus Rhamnosus 1 cap 12/24/17 21:00 01/03/18 08:49 Culturelle* PO 1 cap BID NATHANIEL Administration Losartan Potassium 100 mg 12/23/17 09:00 01/03/18 08:49 Cozaar Tab* PO 100 mg DAILY NATHANIEL Administration Magnesium Hydroxide 30 ml 12/22/17 13:28 Milk Of Magnesia Liq* PO Q6H PRN CONSTIPATION Magnesium Oxide 800 mg 01/02/18 09:00 01/03/18 08:49 Magox 400 Tab* PO 800 mg DAILY NATHANIEL Administration Metformin HCl 250 mg 01/03/18 09:00 01/03/18 08:38 Glucophage* PO 250 mg DAILY NATHANIEL Administration Metoprolol Succinate 75 mg 12/23/17 09:00 01/03/18 08:38 Toprol Xl Tab* PO 75 mg DAILY NATHANIEL Administration Nystatin 1 applic 12/24/17 21:00 01/03/18 09:33 Nystatin Top Powder* TOPICAL 1 applic BID NATHANIEL Administration Senna 2 tab 12/22/17 13:28 Senokot Tab* PO BEDTIME PRN CONSTIPATION Vancomycin HCl 125 mg 12/31/17 14:00 01/03/18 08:49 Vancomycin Cap* PO 01/05/18 23:55 125 mg TID NATHANIEL Administration Vital Signs: Vital Signs Temp Pulse Resp BP Pulse Ox 97.6 F 56 18 165/75 90 01/03/18 06:18 01/03/18 06:18 01/03/18 06:18 01/03/18 06:18 01/03/18 06:18 Lab Results: Laboratory Results - last 24 hr 01/02/18 01/03/18 16:21 07:40 POC Glucose (mg/dL) 109 H 108 H Exam: GEN: No acute distress. Alert and appropriate. HEENT: L facial droop. LUNGS: Clear bilaterally HEART: Regular rate and rhythm ABDOMEN: Soft, + BS, non-tender, non-distended NEUROLOGIC: CN VII palsy. trace right shoulder shrug and movement of her right hip and 2nd toe today. EXTREMITIES: No edema. Assessment/Plan: 77yo woman s/p CVA with right hemiplegia, dysphagia, dysarthria, and cognitive impairment. 1. 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 Prozac to 20 mg. 2. Dysphagia: Pureed Texture, nectar thick liquids. I explained diet is advanced per speech therapy. I will ask dogger to see about choices of foods. 3. Right heel ulcer: mepilex dressings. Multipodus boot with hourly checks and adjustments scheduled. 4. P. Atrial Fibrillation: Pradaxa/Lopressor 5. C. Diff: Oral Vanco and on Culturelle BID. Incontinent liquid stools x4 yesterday (did not start metformin until this morning). Possibly not helped by oral magnesium oxide needed for supplementation. Dr. Still following. 6. Hypertension: Cozaar and Lopressor. Amlodipine 5mg qhs added on 12/26/17, with prn hydralazine. Consider increase amlodipine. 7. Hyperglycemia: Hgb A1c mildly elevated. Consistent carbohydrate diet, low dose metformin 250mg qday starts today. Check fingersticks bid. I explained to her how hyperglycemia and diabetes mellitus can increase risk for stroke. Also, importance of monitoring FS as she initiates the low dose metformin. If she seems stable on it for at least a few days possibly fingersticks can be decreased or d/c'd. She is agreeable. She may need to see cosmetology educator prior to discharge. 8. Hypokalemia/hypomagnesemia: d/c'd KCL supplement today. Continue Magnesium oxide and recheck Mg on Thursday. Magnesium oxide may contribute to diarrhea. Hopefully level will be better and can d/c or decrease dose. 9. Leukocytosis: resolved. 10. Advanced Directives: Lindsey SPRINGER; DNR 01/03/18 10:26
[2018-01-03] MEDS: Atorvastatin* 80 MG TAB PO SCH (17:14)
[2018-01-03] MEDS: amLODIPine TAB* 5 MG PO SCH (19:58)
[2018-01-04 06:01] LABS: EGFR Non-African American 75.7 (>60)
[2018-01-04] MEDS: Metoprolol Succinate XL TAB* 50 MG PO SCH (09:35)
[2018-01-04] MEDS: CMC:Dabigatran CAP(NF) 150 MG CAP PO SCH ×2 (09:35→20:10)
[2018-01-04] MEDS: Vancomycin CAP* 125 MG CAP PO SCH ×3 (09:36→20:10)
[2018-01-04] MEDS: Magnesium Oxide TAB* 400 MG PO SCH (09:36)
[2018-01-04] MEDS: Lactobacillus Acidophilu (GG)* 1 CAP CAP PO SCH ×2 (09:36→20:10)
[2018-01-04] MEDS: FLUoxetine CAP* 20 MG PO SCH (09:36)
[2018-01-04] MEDS: metFORMIN* 500 MG TAB PO SCH (09:37)
[2018-01-04] MEDS: Nystatin TOP POWDER* 15 GM BTL TOPICAL SCH ×2 (09:45→20:15)
[2018-01-04] MEDS: Losartan TAB* 25 MG PO SCH (09:45)
[2018-01-04] MEDS: Atorvastatin* 80 MG TAB PO SCH (16:38)
--- NOTE | 2018-01-04 17:05 | PN ---
Progress Note Date of Service: 01/04/18 Note: CANDI WADE was visited. Therapy notes read and reviewed. She had an episode of hypotension this morning when the nurse was going to give her her morning meds. I held her Cozaar. Will d/c Norvasc. Her BP when supine still on the high side. Will follow. Has been taking PO. Diarrhea slowing. Held MagOx due to diarrhea Current Medications: Active Medications Generic Name Dose Route Start Last Admin Trade Name Freq PRN Reason Stop Dose Admin Acetaminophen 650 mg 12/22/17 13:28 Tylenol Tab* PO Q6H PRN FEVER/PAIN Atorvastatin Calcium 80 mg 12/23/17 17:00 01/04/18 16:38 Lipitor* PO 80 mg 1700 NATHANIEL Administration Dabigatran 150 mg 12/22/17 21:00 01/04/18 09:35 Pradaxa Cap(Nf) PO 150 mg BID NATHANIEL Administration Docusate Sodium 100 mg 12/26/17 09:22 Colace Cap* PO BID PRN CONSTIPATION Fluoxetine HCl 20 mg 12/28/17 17:54 01/04/18 09:36 Prozac Cap* PO 20 mg DAILY NATHANIEL Administration Hydralazine HCl 5 mg 12/26/17 16:08 12/26/17 16:33 Apresoline Tab* PO 5 mg Q6H PRN Administration SBP >180 Lactobacillus Rhamnosus 1 cap 12/24/17 21:00 01/04/18 09:36 Culturelle* PO 1 cap BID NATHANIEL Administration Losartan Potassium 100 mg 12/23/17 09:00 01/04/18 09:45 Cozaar Tab* PO Not Given DAILY NATHANIEL Magnesium Hydroxide 30 ml 12/22/17 13:28 Milk Of Magnesia Liq* PO Q6H PRN CONSTIPATION Metformin HCl 250 mg 01/03/18 09:00 01/04/18 09:37 Glucophage* PO 250 mg DAILY NATHANIEL Administration Metoprolol Succinate 50 mg 01/04/18 11:17 Toprol Xl Tab* PO DAILY NATHANIEL Nystatin 1 applic 12/24/17 21:00 01/04/18 09:45 Nystatin Top Powder* TOPICAL 1 applic BID NATHANIEL Administration Senna 2 tab 12/22/17 13:28 Senokot Tab* PO BEDTIME PRN CONSTIPATION Vancomycin HCl 125 mg 12/31/17 14:00 01/04/18 13:47 Vancomycin Cap* PO 01/05/18 23:55 125 mg TID NATHANIEL Administration Vital Signs: Vital Signs Temp Pulse Resp BP Pulse Ox 97.7 F 49 18 140/70 93 01/04/18 16:29 01/04/18 16:29 01/04/18 16:29 01/04/18 16:29 01/04/18 16:29 Lab Results: Laboratory Results - last 24 hr 01/04/18 05:31 Sodium 134 Potassium 3.7 Chloride 101 Carbon Dioxide 28 Anion Gap 5 BUN 16 Creatinine 0.74 Est GFR ( Amer) 97.4 Est GFR (Non-Af Amer) 75.7 BUN/Creatinine Ratio 21.6 H Glucose 103 H Calcium 9.4 Magnesium 1.5 L Exam: HEENT: L facial droop. LUNGS: Clear bilaterally HEART: Regular rate and rhythm ABDOMEN: Soft, + BS, non-tender, non-distended NEUROLOGIC: CN VII palsy. No movement on right seen by me this afternoon EXTREMITIES: No edema. Assessment/Plan: 1. Left CVA, right hemiplegia: PT/OT/[employer]. 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 Prozac to 20 mg. 2. Dysphagia: Pureed Texture, nectar thick liquids. 3. Right heel ulcer: mepilex dressings. Multipodus boot with hourly checks and adjustments scheduled. 4. P. Atrial Fibrillation: Pradaxa/Lopressor 5. C. Diff: Oral Vanco and on Culturelle BID. Finishing up Vanco. Hold MagOx for a day or two. Dr. Still following. 6. Hypertension: Cozaar and Lopressor. Low BP whrn up today. D/C Amlodipine 5mg qhs, with prn hydralazine. 7. Hyperglycemia: Hgb A1c mildly elevated. Consistent carbohydrate diet, low dose metformin 250mg qday starts today. Check fingersticks bid. Will follow 8. Hypokalemia/hypomagnesemia: d/c'd KCL supplement today. . 9. Advanced Directives: Has MOLST; DNR 01/04/18 17:06
[2018-01-05] MEDS: Nystatin TOP POWDER* 15 GM BTL TOPICAL SCH ×2 (09:40→19:22)
[2018-01-05] MEDS: Vancomycin CAP* 125 MG CAP PO SCH ×2 (09:41→13:57)
[2018-01-05] MEDS: Lactobacillus Acidophilu (GG)* 1 CAP CAP PO SCH ×2 (09:41→20:57)
[2018-01-05] MEDS: FLUoxetine CAP* 20 MG PO SCH (09:41)
[2018-01-05] MEDS: Losartan TAB* 25 MG PO SCH (09:41)
[2018-01-05] MEDS: CMC:Dabigatran CAP(NF) 150 MG CAP PO SCH ×2 (09:41→20:57)
[2018-01-05] MEDS: metFORMIN* 500 MG TAB PO SCH (09:42)
[2018-01-05] MEDS: Metoprolol Succinate XL TAB* 50 MG PO SCH (09:42)
--- NOTE | 2018-01-05 12:36 | PMRUTEAM ---
PMRU: Goals Current Status: Nursing: Current Status Skin Deviations [Right Lower Abrasion Leg] Skin Deviations [Buttocks] Other Skin Deviations [Right Heel] Pressure Ulcer Skin Deviations [Left Heel] Pressure Ulcer Skin Deviation Description [ healing Right Lower Leg] Skin Deviation Description [ healed no redness Buttocks] Skin Deviation Description [ multipodus boot continuously on and mepilex Right Heel] Skin Deviation Description [ none Left Heel] Wound Stage [Right Heel] II Physical Therapy: Current Status Bed Mobility Assistance Mod Assist Transfer Moblility Assistance Mod Assist Transfer/Bed Mobility None Recommended Devices Transfer Mobility Comment mod to max A x 1 SPT Ambulation Assistance Unable Ambulation Assistive Devices Alpesh Walker Ambulation Comment Pt. is able to transition from sit to stand min to mod A x 1. Stairs Assistance Not Tested Curb Not Tested Occupational Therapy: Current Status Upper Body Dressing Min Assist Upper Body Dressing Progress max v/c's for hemidressing, initial assist for initiation RUE Lower Body Dressing Mod Assist,Max Asst,2 Person Assist Lower Body Dressing Progress pt able to thread LLE, modA for left sock, 2 person in standing to hike Bathing Mod Assist,2 Person Assist Bathing Progress 2 person assist in standing, assist for LUE and anika lower legs/feet Toileting Total Assist,2 Person Assist Toileting Progress 1 person assist for standing balance,assist of another for clothing/hygiene Toilet Transfer Mod Assist,Max Asst Toilet Transfer Progress SPT with hemisling/gait belt, blocking right knee , mod v/c's Shower Transfer Total Assist Shower Transfer Progress roll in shower chair Eating Supervision Eating Progress setupA to open containers, thicken liquids Rec Therapy: Current Status Summary of Assessment and RT assessment completed 12/23. Clinical Impression Treatment Goals Patient will engage in recreation and leisure activities while on the unit. Treatment Plan Will follow up with patient regularly for leisure visits and provide recreational activities as appropriate. Social Work: Current Status Discharge Plan return home with home care svs and family support Potential for Family Training pt's daughter and granddaughter are involved and attentive Anticipated Discharge Home Destination Discharge With home care svs and family support Nutrition: Current Status Monitoring pt visited on 01/03 for diabetes education; metformin started 01/03. Consistent carb diet added 01/02. She remains on pureed textures, but working w/[employer] [facility] and hoping to upgrade diet texture and liquid consistencies soon. Will follow [employer] [facility] notes and recommednations. Pt agreeable to try Glucerna Shake (vs milkshake) given new dx DM2. Serum K 3 .7 (01/04). BM 3/ and 01/04. Speech: Current Status Assessment Patient demonstrated reading and problem solving at a similar level as previous session, improved over sessions before that. Pt demonstrated continued reduced sensation in R side oral cavity with poor awareness of residue of soft solid. Patient tolerated all trials of thin liquids w/ no clinical s/s aspiration. Consider videoluoroscopic swallow evaluation to fully assess oropharyngela swallow function, guide treatment approach, and r/o aspiration for possible upgrade to thin liquids. Goals: Physical Therapy: Initial Goals Bed Mobility Assistance Independent Transfer Mobility Assistance Independent Transfer/Bed Mobility Alpesh Walker Recommended Devices Ambulation Independent Ambulation Recommended Devices Alpesh Walker Ambulation Distance 50 Stairs Assistance Independent Stair Recommended Devices One Rail Number of Stairs 5 Physical Therapy: Updated Goals Bed Mobility Assistance Independent Transfer Mobility Assistance Independent Transfer/Bed Mobility Alpesh Walker Recommended Devices Ambulation Assistance Independent Ambulation Assistive Devices Alpesh Walker Stairs Assistance Independent Stairs Recommended Devices One Rail Number of Stairs 5 Occupational Therapy: Initial Goals Goals to be Completed in (Days 4-6 weeks ) Upper Body Bathing Routine Modified Independent with Lower Body Bathing Routine Modified Independent with Upper Body Dressing Routine Modified Independent with Lower Body Dressing Routine Modified Independent with Toilet Hygeine and Clothing Modified Independent with Management Routine Toilet Transfer Routine Modified Independent with Step-In Shower Transfer Modified Independent with Routine Tub Transfer Routine Modified Independent with Functional Transfers for ADL Modified Independent with Grooming Routine Modified Independent with Feeding Routine Modified Independent with Nutrition: Goals Intervention Goals 1. pt will tolerate least-restrictive diet texture and liquid consistency without s/sx aspiration 2. adequate po intake to maintain lean body mass and hydration; no clinical s/sx dehydration 3. bowel pattern will be regulated; no c/o diarrhea (or constipation) 4. Skin will show signs of healing without further breakdown 5. achieve and maintain serum K within satisfactory range 6. BG will be adequately controlled per inpt parameters 7. Any further instruction will be provided prior to d/c Speech: Goals Speech Goal 1 Swallowing Goal 1 Comments Long-Term Goal: Pt will tolerate least restrictive diet consistencies with no clinical s/s or complications from aspiration. Short-Term Goals 1) STG: Pt will tolerate pureed consistency and nectar liquids with no clinical s/s or complications from aspiration and adequate PO intake. Status: Met, with modification to compensate for reduce intake of nectar liquids: Allow thin water between meals, after oral care, with no other food or drink. Patient has advanced from original precaution of chin tuck with Left head turn, to chin tuck at median and hard-fast "effortful" swallows. 2) STG: Pt will will demonstrate adequate mastication of soft solids, using compensatory strategies to clear oral residue from R side of oral cavity, given minimal cueing. Patient c/o "tired of" limited variety of pureed foods. Pt demonstrated adequate bolus preparation on L side of oral cavity ad continues w/ reduced sensation in R side oral cavity with poor awareness of residue. Pt requires further skilled instruction to use tongue sweep to clear R-side oral residue. 3) STG: Pt will tolerate thin liquids at meals with no clinical s/s or complications from aspiration and adequate PO intake. Patient demonstrated ability to perform chin tuck facing midline with effortful swallow technique I' ly. For skilled trials of thin iced tea with lunch , pt I'ly demonstrated chin tuck and tolerated well w/ no clinical s/s aspiration. Plan: Recommend videofluoroscopic swallow evaluation to fully assess swallow function, r/o aspiration of thin liquids, and Rx further treatment. Speech Goal 2 Problem Solving Speech Goal 2 Comments Long-Term Goals: 1) LTG: Pt will solve functional daily problems independently using compensatory strategies as needed. Status: Ongoing. 2) LTG: Pt will read and write basic functional information, using non-dominant hand and compensatory strategies independently. Short-Term Goals: 1) STG: Pt will demonstrate use of compensatory strategies to solve simple memory, feeding and self-care problems, including attention to the Rght side of her work area and tasks. Status 1: Ongoing. Given initial instruction, pt has attended to letters and pictures on the Right side of worksheets with minim cueing. 2) STG: Pt will read simple 1-2 step directions, using compensatory strategies, with 80% accuracy, given Minimal cueing. Status: Ongoing. Given moderate verbal cueing, patient read and followed written 1-2 step directions, with use of Left index finger to point to sequences of words and pictures. 3) STG: Pt will draw basic shapes and write letters, using nondominant Left hand and compensatory strategies. Status 3: Ongoing. When copying words, patient substituted unrelated letters without self-correction. Patient required maximum visual demonstration and direct models to copy single letter forms accurately. Social Work: Goals Discharge Plan return home with home care svs and family support Potential for Family Training pt's daughter and granddaughter are involved and attentive Anticipated Discharge Home Destination Discharge With home care svs and family support Care Plan: Care Plan ADL's - Improve/Maintain Start: 12/22/17 15:29 Freq: QSHIFT Status: Active Target: Protocol: Activity Type Activity Date Activity User E-Sign Co-Sign Detail Recorded Client Recorded Date Recorded By Document 01/04/18 10:49 [id number] 01/04/18 10:49 [id number] 01/04/18 10:49 PMRU Outcome: ADL's/ADL Transfers Orders/Interventions Occupational Therapy Evaluation & Treatment Communication Tool in Patient Room Address Deficits Secondary To: CVA Patient to receive OT 5x/wk for 60-120 Therex min/day Self Care Management Group Therapy Neuromuscular ReEducation UE/LE ADL's with Assist Yes: eKn ADL Transfers with Assist Yes: Ken Toileting: Transfers,Clothing Management Yes: Ken ,Hygeine w/Assist Light Kitchen/Laundry w/Assist Yes: Lilly Progression Toward Outcome/Goals Progressing Outcome/Goals Met Pt participated well, increased independence with UE/LE dressing this date with increased cueing when attempting right side, increased difficulty with motor planning observed on right hemibody compared to left during session. Pt with decreased difficulty looking to target on right with visual scanning this date. Pt will benefit from continued skilled OT intervention to maximize independence and safety. Communication-Improve/Maintain Start: 12/24/17 02:06 Freq: QSHIFT Status: Active Target: Protocol: Activity Type Activity Date Activity User E-Sign Co-Sign Detail Recorded Client Recorded Date Recorded By Document 01/05/18 10:21 [id number] [email or web address] 01/05/18 10:23 [id number] 01/05/18 10:21 PMRU Outcome: Communication/Cognitive Status Outcome/Goals Use Comm Tools/ Devices Makes Needs Known Effectively Other Outcomes/Goals Long-Term Goals , Problem Solvin) LTG: Pt will solve functional daily problems independently using compensatory strategies as needed. Status: Ongoing. 2) LTG: Pt will read and write basic functional information, using non- dominant hand and compensatory strategies independently. Short-Term Goals: 1) STG: Pt will demonstrate use of compensatory strategies to solve simple memory, feeding and self-care problems, including attention to the Rght side of her work area and tasks. 2) STG: Pt will read simple 1-2 step directions, using compensatory strategies, with 80% accuracy, given Minimal cueing . 3) STG: Pt will draw basic shapes and write letters, using nondominant Left hand and compensatory strategies. Progression Toward Outcomes/Goals Goals Adjusted Outcome/Goals Met Comment Ongoing Coping/Psych-Improve/Maintain Start: 12/24/17 02:06 Freq: QSHIFT Status: Active Target: Protocol: Activity Type Activity Date Activity User E-Sign Co-Sign Detail Recorded Client Recorded Date Recorded By Document 01/05/18 01:08 [id number] 01/05/18 01:12 [id number] 01/05/18 01:08 PMRU Outcome: Coping/Psychosocial Coping Outcome/Goals Verbalization of Acceptance of Rehab Admit Verbalization of Sense of Control Over Health Status Utilization of Appropriate Problem Solving Techniques Willingness to Participate in Treatment Plan and Basic Needs Utilization of Available Support Systems Absence of Destructive Behavior to Self/Others Psychosocial Outcome/Goals Maintain/ Improve Emotional Health Progression Toward Outcome/Goals - Progressing Coping Progression Toward Outcome/Goals - Progressing Psychosocial Discharge Planning - Improve/Maintain Start: 12/24/17 02:06 Freq: QSHIFT Status: Active Target: Protocol: Activity Type Activity Date Activity User E-Sign Co-Sign Detail Recorded Client Recorded Date Recorded By Document 01/04/18 22:22 [id number] 01/04/18 22:23 [id number] 01/04/18 22:22 PMRU Outcome: Discharge Planning Identify Patient Needs yes Update Patient Family No Outcome/Goals Demonstrates Understanding of Discharge Plan Progression Toward Outcome/Goals Progressing Education-Improve/Maintain Start: 12/24/17 02:06 Freq: QSHIFT Status: Active Target: Protocol: Activity Type Activity Date Activity User E-Sign Co-Sign Detail Recorded Client Recorded Date Recorded By Document 01/05/18 01:08 [id number] 01/05/18 01:12 [id number] 01/05/18 01:08 PMRU Outcome: Education Outcome/Goals Demonstrate/ Verbalize Understanding of Written Discharge Instructions Demonstrates Skills Encourage Questions Progression Toward Outcome/Goals Progressing /GI-Improve/Maintain Start: 12/24/17 02:06 Freq: QSHIFT Status: Active Target: Protocol: Activity Type Activity Date Activity User E-Sign Co-Sign Detail Recorded Client Recorded Date Recorded By Document 01/05/18 01:08 [id number] 01/05/18 01:12 [id number] 01/05/18 01:08 PMRU Outcome: Genitourinary/ Gastrointestinal Genitourinary- Outcome/Goals Maintain/ Achieve Adequate Urinary Output Remain Free of Hospital- Acquired UTI Gastrointestinal-Outcome/Goals Maintain/ Achieve Bowel Regularity in Accordance with Pt's Baseline Prevent Constipation Laxatives as Ordered Progression Toward Outcome/Goals - Not Progressing Progression Toward Outcome/Goals - GI Not Progressing Medication Administration Start: 12/24/17 02:06 Freq: QSHIFT Status: Active Target: Protocol: Activity Type Activity Date Activity User E-Sign Co-Sign Detail Recorded Client Recorded Date Recorded By Document 01/05/18 01:08 [id number] 01/05/18 01:12 [id number] 01/05/18 01:08 PMRU Outcome: Medication Administration Assess Patient Knowledge/Teach Med Yes Education for all Meds Outcome/Goals Family/ Caregiver Administer Medications at Home Demonstrates Understanding Progression Towards Outcome/Goals Progressing Is Patient Going Home on Lovenox? No Mobility- Improve/Maintain Start: 12/22/17 18:22 Freq: QSHIFT Status: Active Target: Protocol: Activity Type Activity Date Activity User E-Sign Co-Sign Detail Recorded Client Recorded Date Recorded By Document 01/01/18 17:54 [id number] 01/01/18 17:54 [id number] 01/01/18 17:54 PMRU Outcome: Mobility Physical Therapy Evaluation and Yes Treatment Activity OOB with Assistance Yes Device Yes Assistance Yes Patient to be seen 5x/wk for 60-120 min/ Therex day for: Mobility Training Gait Training W/C Mobility Balance Outcome/Goals Maintain/ Achieve Baseline Mobility Status Improve Mobility Status Demonstrates Proper Use of Assistive Devices Free from Complications of Immobility Progression Toward Outcome/Goals Progressing Bed Mobility Yes: independent Transfers Yes: independnet with alpesh walker Gait x ft Yes: independent with alpesh walker to household distances (50') Up/Down Stairs Yes: independent with 1 rail up/ down 5 Neurological- Improve/Maintain Start: 12/24/17 02:06 Freq: QSHIFT Status: Active Target: Protocol: Activity Type Activity Date Activity User E-Sign Co-Sign Detail Recorded Client Recorded Date Recorded By Document 01/05/18 01:08 [id number] 01/05/18 01:12 [id number] 01/05/18 01:08 PMRU Outcome: Neurological Weakness/Aphasia Weakness Right Side Outcome/Goals Improve Neurological Status Prevent Avoidable Neurological Decline Progression Toward Outcome/Goals Progressing Nutrition/Swallowing- Improve/Maintain Start: 12/24/17 02:06 Freq: QSHIFT Status: Active Target: Protocol: Activity Type Activity Date Activity User E-Sign Co-Sign Detail Recorded Client Recorded Date Recorded By Document 01/05/18 10:25 [id number] 01/05/18 10:27 [id number] 01/05/18 10:25 PMRU Outcome: Nutrition/Swallowing Outcome/Goals Demonstrates Adequate Hydration/ Prevents Dehydration Maintain/ Improve Nutritional Status Other Outcome/Goals Problem: Swallowing Long-Term Goal: Pt will tolerate least restrictive diet consistencies with no clinical s/s or complications from aspiration . Short-Term Goals 1) STG: Pt will tolerate pureed consistency and nectar liquids with no clinical s/s or complications from aspiration and adequate PO intake. Status: Met. 2) STG: Pt will will demonstrate adequate mastication of soft solids, using compensatory strategies to clear oral residue from R side of oral cavity, given minimal cueing. 3) STG: Pt will tolerate thin liquids at meals with no clinical s/s or complications from aspiration and adequate PO intake. Progression Toward Outcome/Goals Progressing Outcome/Goals Met Demonstrates Adequate Hydration/ Prevents Dehydration Outcome/Goals Met Comment STG 1 Status: Met, with modification to compensate for reduce intake of nectar liquids: Allow thin water between meals, after oral care , with no other food or drink. Patient has advanced from original precaution of chin tuck with Left head turn, to chin tuck at median and hard-fast " effortful" swallows. Safety- Improve/Maintain Start: 12/24/17 02:06 Freq: QSHIFT Status: Active Target: Protocol: Activity Type Activity Date Activity User E-Sign Co-Sign Detail Recorded Client Recorded Date Recorded By Document 01/05/18 01:08 [id number] 01/05/18 01:12 [id number] 01/05/18 01:08 PMRU Outcome: Safety Outcome/Goals Remain Free of Injury or Harm Cooperates with Safety Measures for Least Restrictive Environment Prevent Falls/ Injury Progression Toward Outcome/Goals Progressing Outcome/Goals Met Comment PA in place Skin- Improve/Maintain Start: 12/24/17 02:06 Freq: QSHIFT Status: Active Target: Protocol: Activity Type Activity Date Activity User E-Sign Co-Sign Detail Recorded Client Recorded Date Recorded By Document 01/05/18 01:08 [id number] [id number] 01/05/18 01:12 [id number] 01/05/18 01:08 PMRU Outcome: Skin Skin Risk Level High Skin Orders Air Mattress Spenco Boots Multipodus Boot Heels Off Bed Turn/Position q2hr While in Bed Outcome/Goals Maintain/ Improve Skin Intergrity Maintain/ Improve Wound Status Progression Toward Outcome/Goals Progressing Outcome/Goals Met Comment multipodus boot to R foot, spanko to L foot Medicine Note: Length of Stay: 1 month Anticipated Discharge Destination: Home Tentative Discharge Date: February 05, 2018 Discharged to: Home
--- NOTE | 2018-01-05 16:30 | PN ---
Progress Note - Progress Note Date of Service: 01/05/18 SOAP: Subjective: cc: diarrhea HPI: 77 year old woman with CVA, at [facility], dx with Cdif there and discharged on vancomycin. She has had 3 soft stools today per RN. No abd pain, fever, or nausea. Objective: Vital Signs Temp 36.3 C 01/05/18 15:57 Pulse 55 01/05/18 15:57 Resp 20 01/05/18 15:57 BP 158/80 01/05/18 15:57 Pulse Ox 95 01/05/18 15:57 Intake & Output 01/04/18 01/05/18 01/05/18 18:59 06:59 18:59 Intake Total 355 410 Output Total 1 1 Balance 355 -1 409 Intake: Oral 355 410 Output: # Incontinent Voids 1 1 Other: Estimated Void Small Large Large # Bowel Movements 1 Estimated Stool Amount Medium # Voids 1 Gen:awake, no distress HEENT:no thrush Heart:RRR no murmur Lungs:CTA BL Abd:+BS NTND soft Skin: no rash Laboratory Results - last 24 hr 01/04/18 01/05/18 22:21 07:30 POC Glucose (mg/dL) 133 H 97 Assessment: 1. diarrhea; improving. Had 3 weeks vancomycin. I do not think she has Cdif infection any longer. 2. CVA Plan: 1. DC vancomycin, please call if increased frequency of stools after finishing vancomycin
--- NOTE | 2018-01-05 16:40 | PN ---
Progress Note Date of Service: 01/05/18 Note: CANDI WADE was visited. Therapy notes read and reviewed. Appreciate Dr. Still's help. She is now off Vanco. She was discussed in interdisciplinary team rounds. Slow gains noted. Current Medications: Active Medications Generic Name Dose Route Start Last Admin Trade Name Freq PRN Reason Stop Dose Admin Acetaminophen 650 mg 12/22/17 13:28 Tylenol Tab* PO Q6H PRN FEVER/PAIN Atorvastatin Calcium 80 mg 12/23/17 17:00 01/04/18 16:38 Lipitor* PO 80 mg 1700 NATHANIEL Administration Dabigatran 150 mg 12/22/17 21:00 01/05/18 09:41 Pradaxa Cap(Nf) PO 150 mg BID NATHANIEL Administration Docusate Sodium 100 mg 12/26/17 09:22 Colace Cap* PO BID PRN CONSTIPATION Fluoxetine HCl 20 mg 12/28/17 17:54 01/05/18 09:41 Prozac Cap* PO 20 mg DAILY NATHANIEL Administration Hydralazine HCl 5 mg 12/26/17 16:08 12/26/17 16:33 Apresoline Tab* PO 5 mg Q6H PRN Administration SBP >180 Lactobacillus Rhamnosus 1 cap 12/24/17 21:00 01/05/18 09:41 Culturelle* PO 1 cap BID NATHANIEL Administration Losartan Potassium 100 mg 12/23/17 09:00 01/05/18 09:41 Cozaar Tab* PO 100 mg DAILY NATHANIEL Administration Magnesium Hydroxide 30 ml 12/22/17 13:28 Milk Of Magnantonio Liq* PO Q6H PRN CONSTIPATION Metformin HCl 250 mg 01/03/18 09:00 01/05/18 09:42 Glucophage* PO 250 mg DAILY NATHANIEL Administration Metoprolol Succinate 50 mg 01/04/18 11:17 01/05/18 09:42 Toprol Xl Tab* PO 50 mg DAILY NATHANIEL Administration Nystatin 1 applic 12/24/17 21:00 01/05/18 09:40 Nystatin Top Powder* TOPICAL 1 applic BID NATHANIEL Administration Senna 2 tab 12/22/17 13:28 Senokot Tab* PO BEDTIME PRN CONSTIPATION Vital Signs: Vital Signs Temp Pulse Resp BP Pulse Ox 97.3 F 55 20 158/80 95 01/05/18 15:57 01/05/18 15:57 01/05/18 15:57 01/05/18 15:57 01/05/18 15:57 Lab Results: Laboratory Results - last 24 hr 01/04/18 01/05/18 22:21 07:30 POC Glucose (mg/dL) 133 H 97 Exam: HEENT: L facial droop. LUNGS: Clear bilaterally HEART: Regular rate and rhythm ABDOMEN: Soft, + BS, non-tender, non-distended NEUROLOGIC: CN VII palsy. No movement on right seen by me today EXTREMITIES: No edema. Assessment/Plan: 1. 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 Prozac 20 mg. 2. Dysphagia: Pureed Texture, nectar thick liquids. 3. Right heel ulcer: mepilex dressings. Multipodus boot with hourly checks and adjustments scheduled. 4. P. Atrial Fibrillation: Pradaxa/Lopressor 5. C. Diff: Oral Vanco finished and on Culturelle BID. Hold MagOx for a day or two. 6. Hypertension: Cozaar and Lopressor. Low BP whrn up today. D/C Amlodipine 5mg qhs, with prn hydralazine. 7. Hyperglycemia: Hgb A1c mildly elevated. Consistent carbohydrate diet, low dose metformin 250mg qday. Check fingersticks bid. Will follow 8. Hypokalemia/hypomagnesemia: d/c'd KCL supplement today. . 9. Advanced Directives: Lindsey SPRINGER; DNR 01/05/18 16:41
[2018-01-05] MEDS: Atorvastatin* 80 MG TAB PO SCH (17:17)
[2018-01-06 06:28] LABS: EGFR Non-African American 76.9 (>60)
[2018-01-06 06:31] LABS: Hematocrit 42 % (35-47); Hemoglobin 14.4 g/dl (12.0-16.0); Mean Corpuscular HGB Conc 34 g/dl (31-36); Mean Corpuscular Hemoglobin 29 pg (27-31); Mean Corpuscular Volume 84 fL (80-97); Red Blood Count 4.97 10^6/ul (4.0-5.4); Red Cell Distribution Width 14 % (10.5-15); White Blood Count 11.1 10^3/ul (3.5-10.8)
[2018-01-06 07:18] LABS: ABS Basophils 0.1 10^3/ul (0-0.2); ABS Eosinophils 0.2 10^3/ul (0-0.6); ABS Lymphocytes 2.7 10^3/ul (1.0-4.8); ABS Monocytes 1.3 10^3/ul (0-0.8); ABS Neutrophils 6.7 10^3/ul (1.5-7.7); ABS Nucleated RBC 0 10^3/ul; Eosinophil % 2.2 % (0-6); Lymphocyte % 24.3 % (25-47); Mean Platelet Volume 9 um3 (7.4-10.4); Nucleated Red Blood Cells % 0.2; Platelet Count 323 10^3/ul (150-450)
[2018-01-06] MEDS: Metoprolol Succinate XL TAB* 50 MG PO SCH (09:19)
[2018-01-06] MEDS: CMC:Dabigatran CAP(NF) 150 MG CAP PO SCH ×2 (09:19→20:09)
[2018-01-06] MEDS: FLUoxetine CAP* 20 MG PO SCH (09:19)
[2018-01-06] MEDS: metFORMIN* 500 MG TAB PO SCH (09:19)
[2018-01-06] MEDS: Lactobacillus Acidophilu (GG)* 1 CAP CAP PO SCH ×2 (09:19→20:09)
[2018-01-06] MEDS: Losartan TAB* 25 MG PO SCH (09:19)
[2018-01-06] MEDS: Nystatin TOP POWDER* 15 GM BTL TOPICAL SCH ×2 (09:25→20:10)
--- NOTE | 2018-01-06 11:20 | PN ---
Progress Note - Progress Note Date of Service: 01/06/18 SOAP: Subjective: cc: diarrhea HPI: 77 year old woman with CVA, at [facility], dx with Cdif there and discharged on vancomycin. One loose stool this morning, no abd pain or fever. Objective: Vital Signs Temp 36.9 C 01/06/18 05:50 Pulse 55 01/06/18 05:50 Resp 24 01/06/18 05:50 BP 155/50 01/06/18 05:50 Pulse Ox 92 01/06/18 05:50 Intake & Output 01/05/18 01/06/18 01/06/18 18:59 06:59 18:59 Intake Total 530 150 Output Total 1 Balance 529 150 Intake: Oral 530 150 Output: # Incontinent Voids 1 Other: Estimated Void Large Medium # Bowel Movements 1 Estimated Stool Amount Medium Gen:awake, no distress Heart:RRR no murmur Lungs:CTA BL Abd:+BS NTND soft Skin: no rash Assessment: 1. diarrhea; improving. 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 CVA Plan: 1. continue off of vancomycin, please call if increased frequency of stools
[2018-01-06] MEDS: Atorvastatin* 80 MG TAB PO SCH (16:53)
--- NOTE | 2018-01-06 22:36 | PN ---
Progress Note Date of Service: 01/06/18 Note: CANDI WADE was visited. Therapy notes read and reviewed. Loose stools slowing to 2 a day. Will monitor off Vanco. May need to give Magnesium IV. She is refusing fingersticks. May hold Metformin Current Medications: Active Medications Generic Name Dose Route Start Last Admin Trade Name Freq PRN Reason Stop Dose Admin Acetaminophen 650 mg 12/22/17 13:28 Tylenol Tab* PO Q6H PRN FEVER/PAIN Atorvastatin Calcium 80 mg 12/23/17 17:00 01/06/18 16:53 Lipitor* PO 80 mg 1700 NATHANIEL Administration Dabigatran 150 mg 12/22/17 21:00 01/06/18 20:09 Pradaxa Cap(Nf) PO 150 mg BID NATHANIEL Administration Docusate Sodium 100 mg 12/26/17 09:22 Colace Cap* PO BID PRN CONSTIPATION Fluoxetine HCl 20 mg 12/28/17 17:54 01/06/18 09:19 Prozac Cap* PO 20 mg DAILY NATHANIEL Administration Hydralazine HCl 5 mg 12/26/17 16:08 12/26/17 16:33 Apresoline Tab* PO 5 mg Q6H PRN Administration SBP >180 Lactobacillus Rhamnosus 1 cap 12/24/17 21:00 01/06/18 20:09 Culturelle* PO 1 cap BID NATHANIEL Administration Losartan Potassium 100 mg 12/23/17 09:00 01/06/18 09:19 Cozaar Tab* PO 100 mg DAILY NATHANIEL Administration Magnesium Hydroxide 30 ml 12/22/17 13:28 Milk Of Magnesia Liq* PO Q6H PRN CONSTIPATION Metformin HCl 250 mg 01/03/18 09:00 01/06/18 09:19 Glucophage* PO 250 mg DAILY NATHANIEL Administration Metoprolol Succinate 50 mg 01/04/18 11:17 01/06/18 09:19 Toprol Xl Tab* PO 50 mg DAILY NATHANIEL Administration Nystatin 1 applic 12/24/17 21:00 01/06/18 20:10 Nystatin Top Powder* TOPICAL Not Given BID NATHANIEL Senna 2 tab 12/22/17 13:28 Senokot Tab* PO BEDTIME PRN CONSTIPATION Vital Signs: Vital Signs Temp Pulse Resp BP Pulse Ox 97.4 F 49 18 166/61 95 01/06/18 15:50 01/06/18 15:50 01/06/18 15:50 01/06/18 15:50 01/06/18 19:18 Lab Results: Laboratory Results - last 24 hr 01/05/18 01/06/18 01/06/18 22:37 05:31 05:31 WBC 11.1 H RBC 4.97 Hgb 14.4 Hct 42 MCV 84 MCH 29 MCHC 34 RDW 14 Plt Count 323 MPV 9 Neut % (Auto) 60.8 Lymph % (Auto) 24.3 L Waldo % (Auto) 11.5 H Eos % (Auto) 2.2 Baso % (Auto) 1.2 Absolute Neuts (auto) 6.7 Absolute Lymphs (auto) 2.7 Absolute Monos (auto) 1.3 H Absolute Eos (auto) 0.2 Absolute Basos (auto) 0.1 Absolute Nucleated RBC 0 Nucleated RBC % 0.2 Sodium 134 Potassium 3.8 Chloride 100 L Carbon Dioxide 26 Anion Gap 8 BUN 22 Creatinine 0.73 Est GFR ( Amer) 98.9 Est GFR (Non-Af Amer) 76.9 BUN/Creatinine Ratio 30.1 H Glucose 95 POC Glucose (mg/dL) 122 H Calcium 9.1 Total Bilirubin 0.80 AST 18 ALT 16 Alkaline Phosphatase 100 Total Protein 6.1 L Albumin 3.2 Globulin 2.9 Albumin/Globulin Ratio 1.1 01/06/18 08:00 WBC RBC Hgb Hct MCV MCH MCHC RDW Plt Count MPV Neut % (Auto) Lymph % (Auto) Waldo % (Auto) Eos % (Auto) Baso % (Auto) Absolute Neuts (auto) Absolute Lymphs (auto) Absolute Monos (auto) Absolute Eos (auto) Absolute Basos (auto) Absolute Nucleated RBC Nucleated RBC % Sodium Potassium Chloride Carbon Dioxide Anion Gap BUN Creatinine Est GFR ( Amer) Est GFR (Non-Af Amer) BUN/Creatinine Ratio Glucose POC Glucose (mg/dL) 92 Calcium Total Bilirubin AST ALT Alkaline Phosphatase Total Protein Albumin Globulin Albumin/Globulin Ratio Exam: HEENT: L facial droop. LUNGS: Clear bilaterally HEART: Regular rate and rhythm ABDOMEN: Soft, + BS, non-tender, non-distended EXTREMITIES: No edema. NEUROLOGIC: CN VII palsy. Some shoulder shrug on right Assessment/Plan: 1. 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 Prozac 20 mg. 2. Dysphagia: Pureed Texture, nectar thick liquids. AMF MECHANIC would like video 3. Right heel ulcer: mepilex dressings. Multipodus boot with hourly checks and adjustments scheduled. 4. P. Atrial Fibrillation: Pradaxa/Lopressor 5. C. Diff: Oral Vanco finished and on Culturelle BID. Hold MagOx for a day or two. 6. Hypertension: Cozaar and Lopressor. prn hydralazine. 7. Hyperglycemia: Hgb A1c mildly elevated. Will follow 8. Hypomagnesemia: May need IV magnesium . 9. Advanced Directives: Has MOLST; DNR 01/06/18 22:39
[2018-01-07] MEDS: Metoprolol Succinate XL TAB* 50 MG PO SCH (08:11)
[2018-01-07] MEDS: Lactobacillus Acidophilu (GG)* 1 CAP CAP PO SCH ×2 (08:11→19:59)
[2018-01-07] MEDS: CMC:Dabigatran CAP(NF) 150 MG CAP PO SCH ×2 (08:11→19:59)
[2018-01-07] MEDS: metFORMIN* 500 MG TAB PO SCH (08:11)
[2018-01-07] MEDS: Nystatin TOP POWDER* 15 GM BTL TOPICAL SCH (08:12)
[2018-01-07] MEDS: Losartan TAB* 25 MG PO SCH (08:12)
[2018-01-07] MEDS: FLUoxetine CAP* 20 MG PO SCH (08:12)
[2018-01-07] MEDS: Atorvastatin* 80 MG TAB PO SCH (17:12)
--- NOTE | 2018-01-07 17:45 | PN ---
Progress Note Date of Service: 01/07/18 Note: CANDI WADE was visited. Therapy notes read and reviewed. She had just one loose stool today, but it was liquid. I have held glucophage. Will recheck labs Current Medications: Active Medications Generic Name Dose Route Start Last Admin Trade Name Freq PRN Reason Stop Dose Admin Acetaminophen 650 mg 12/22/17 13:28 Tylenol Tab* PO Q6H PRN FEVER/PAIN Atorvastatin Calcium 80 mg 12/23/17 17:00 01/07/18 17:12 Lipitor* PO 80 mg 1700 NATHANIEL Administration Dabigatran 150 mg 12/22/17 21:00 01/07/18 08:11 Pradaxa Cap(Nf) PO 150 mg BID NATHANIEL Administration Docusate Sodium 100 mg 12/26/17 09:22 Colace Cap* PO BID PRN CONSTIPATION Fluoxetine HCl 20 mg 12/28/17 17:54 01/07/18 08:12 Prozac Cap* PO 20 mg DAILY NATHANIEL Administration Hydralazine HCl 5 mg 12/26/17 16:08 12/26/17 16:33 Apresoline Tab* PO 5 mg Q6H PRN Administration SBP >180 Lactobacillus Rhamnosus 1 cap 12/24/17 21:00 01/07/18 08:11 Culturelle* PO 1 cap BID NATHANIEL Administration Losartan Potassium 100 mg 12/23/17 09:00 01/07/18 08:12 Cozaar Tab* PO 100 mg DAILY NATHANIEL Administration Magnesium Hydroxide 30 ml 12/22/17 13:28 Milk Of Magnesia Liq* PO Q6H PRN CONSTIPATION Metoprolol Succinate 50 mg 01/04/18 11:17 01/07/18 08:11 Toprol Xl Tab* PO 50 mg DAILY NATHANIEL Administration Senna 2 tab 12/22/17 13:28 Senokot Tab* PO BEDTIME PRN CONSTIPATION Vital Signs: Vital Signs Temp Pulse Resp BP Pulse Ox 97.6 F 51 20 157/52 98 01/07/18 15:32 01/07/18 15:32 01/07/18 15:32 01/07/18 15:32 01/07/18 17:28 Exam: HEENT: L facial droop. LUNGS: Clear bilaterally HEART: Regular rate and rhythm ABDOMEN: Soft, + BS, non-tender, non-distended EXTREMITIES: No edema. NEUROLOGIC: CN VII palsy. Some shoulder shrug on right Assessment/Plan: 1. 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 Prozac 20 mg. 2. Dysphagia: Pureed Texture, nectar thick liquids. RADAR SCIENTIST would like video swallow tomorrow 3. Right heel ulcer: mepilex dressings. Multipodus boot with hourly checks and adjustments scheduled. 4. P. Atrial Fibrillation: Pradaxa/Lopressor 5. C. Diff: Oral Vanco finished and on Culturelle BID. Hold MagOx for a day or two. 6. Hypertension: Cozaar and Lopressor. prn hydralazine. 7. Hyperglycemia: Hgb A1c mildly elevated. Will follow 8. Hypomagnesemia: May need IV magnesium . 9. Advanced Directives: Lindsey SPRINGER; DNR 01/07/18 17:45
[2018-01-08] MEDS: FLUoxetine CAP* 20 MG PO SCH (08:11)
[2018-01-08] MEDS: Metoprolol Succinate XL TAB* 50 MG PO SCH (08:11)
[2018-01-08] MEDS: Lactobacillus Acidophilu (GG)* 1 CAP CAP PO SCH ×2 (08:11→21:00)
[2018-01-08] MEDS: CMC:Dabigatran CAP(NF) 150 MG CAP PO SCH ×2 (08:11→21:00)
[2018-01-08] MEDS: Losartan TAB* 25 MG PO SCH (08:11)
--- NOTE | 2018-01-08 11:46 | RAD ---
HISTORY: Stroke, evaluate swallowing COMPARISONS: None TECHNIQUE: A videofluoroscopic evaluation of swallow was performed in conjunction with speech therapy. Barium laced foods and liquids of varying consistency were administered under fluoroscopic observation. Total fluoroscopy time is 2 minutes. FINDINGS: ORAL PHASE: There is delayed initiation with early release of spillage of contrast from the vallecula. PHARYNGEAL PHASE: There is normal elevation and propulsion. ASPIRATION/PENETRATION: There is no aspiration or penetration. OTHER FINDINGS: None. IMPRESSION: DELAYED INITIATION. NO APPRECIABLE ASPIRATION OR PENETRATION.. PLEASE SEE THE SPEECH THERAPIST REPORT FOR FURTHER INFORMATION CPT II Codes: 6045F
[2018-01-08] MEDS: Atorvastatin* 80 MG TAB PO SCH (16:17)
--- NOTE | 2018-01-08 16:43 | PN ---
Progress Note Date of Service: 01/08/18 Note: CANDI WADE was visited. Therapy notes read and reviewed. She had video swallow with SUPERVISOR METAL FURNITURE ASSEMBLY and did well. Diet upgraded to Mechanical ground with thin liquids Current Medications: Active Medications Generic Name Dose Route Start Last Admin Trade Name Freq PRN Reason Stop Dose Admin Acetaminophen 650 mg 12/22/17 13:28 Tylenol Tab* PO Q6H PRN FEVER/PAIN Atorvastatin Calcium 80 mg 12/23/17 17:00 01/08/18 16:17 Lipitor* PO 80 mg 1700 NATHANIEL Administration Dabigatran 150 mg 12/22/17 21:00 01/08/18 08:11 Pradaxa Cap(Nf) PO 150 mg BID NATHANIEL Administration Docusate Sodium 100 mg 12/26/17 09:22 Colace Cap* PO BID PRN CONSTIPATION Fluoxetine HCl 20 mg 12/28/17 17:54 01/08/18 08:11 Prozac Cap* PO 20 mg DAILY NATHANIEL Administration Hydralazine HCl 5 mg 12/26/17 16:08 12/26/17 16:33 Apresoline Tab* PO 5 mg Q6H PRN Administration SBP >180 Lactobacillus Rhamnosus 1 cap 12/24/17 21:00 01/08/18 08:11 Culturelle* PO 1 cap BID NATHANIEL Administration Losartan Potassium 100 mg 12/23/17 09:00 01/08/18 08:11 Cozaar Tab* PO 100 mg DAILY NATHANIEL Administration Magnesium Hydroxide 30 ml 12/22/17 13:28 Milk Of Magnesia Liq* PO Q6H PRN CONSTIPATION Metoprolol Succinate 50 mg 01/04/18 11:17 01/08/18 08:11 Toprol Xl Tab* PO 50 mg DAILY NATHANIEL Administration Senna 2 tab 12/22/17 13:28 Senokot Tab* PO BEDTIME PRN CONSTIPATION Vital Signs: Vital Signs Temp Pulse Resp BP Pulse Ox 98.2 F 51 20 158/53 98 01/08/18 16:28 01/08/18 16:28 01/08/18 16:28 01/08/18 16:28 01/08/18 16:28 Exam: HEENT: L facial droop. LUNGS: Clear bilaterally HEART: Regular rate and rhythm ABDOMEN: Soft, + BS, non-tender, non-distended EXTREMITIES: No edema. NEUROLOGIC: CN VII palsy. Some shoulder shrug on right Assessment/Plan: 1. 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 Prozac 20 mg. 2. Dysphagia: Mech Ground Texture, thin liquids. 3. Right heel ulcer: mepilex dressings. Multipodus boot with hourly checks and adjustments scheduled. 4. P. Atrial Fibrillation: Pradaxa/Lopressor 5. C. Diff: Oral Vanco finished and on Culturelle BID. Hold MagOx for a day or two. 6. Hypertension: Cozaar and Lopressor. prn hydralazine. 7. Hyperglycemia: Hgb A1c mildly elevated. Will follow 8. Hypomagnesemia: May need IV magnesium. 9. Advanced Directives: Has MOLST; DNR 10. Diarrhea: Slowing but stools still loose. 01/08/18 16:44
[2018-01-09] MEDS: hydrALAZINE TAB* 10 MG PO PRN (07:16)
[2018-01-09] MEDS: Lactobacillus Acidophilu (GG)* 1 CAP CAP PO SCH ×2 (09:23→20:05)
[2018-01-09] MEDS: Metoprolol Succinate XL TAB* 50 MG PO SCH (09:23)
[2018-01-09] MEDS: FLUoxetine CAP* 20 MG PO SCH (09:24)
[2018-01-09] MEDS: CMC:Dabigatran CAP(NF) 150 MG CAP PO SCH ×2 (09:24→20:05)
[2018-01-09] MEDS: Losartan TAB* 25 MG PO SCH (09:24)
--- NOTE | 2018-01-09 16:00 | PN ---
Progress Note Date of Service: 01/09/18 Note: CANDI WADE was visited. Nursing notes read and reviewed. She is doing ok, feels tired. Current Medications: Active Medications Generic Name Dose Route Start Last Admin Trade Name Freq PRN Reason Stop Dose Admin Acetaminophen 650 mg 12/22/17 13:28 Tylenol Tab* PO Q6H PRN FEVER/PAIN Atorvastatin Calcium 80 mg 12/23/17 17:00 01/08/18 16:17 Lipitor* PO 80 mg 1700 NATHANIEL Administration Dabigatran 150 mg 12/22/17 21:00 01/09/18 09:24 Pradaxa Cap(Nf) PO 150 mg BID NATHANIEL Administration Docusate Sodium 100 mg 12/26/17 09:22 Colace Cap* PO BID PRN CONSTIPATION Fluoxetine HCl 20 mg 12/28/17 17:54 01/09/18 09:24 Prozac Cap* PO 20 mg DAILY NATHANIEL Administration Hydralazine HCl 5 mg 12/26/17 16:08 01/09/18 07:16 Apresoline Tab* PO 5 mg Q6H PRN Administration SBP >180 Lactobacillus Rhamnosus 1 cap 12/24/17 21:00 01/09/18 09:23 Culturelle* PO 1 cap BID NATHANIEL Administration Losartan Potassium 100 mg 12/23/17 09:00 01/09/18 09:24 Cozaar Tab* PO 100 mg DAILY NATHANIEL Administration Magnesium Hydroxide 30 ml 12/22/17 13:28 Milk Of Magnantonio Liq* PO Q6H PRN CONSTIPATION Metoprolol Succinate 50 mg 01/04/18 11:17 01/09/18 09:23 Toprol Xl Tab* PO 50 mg DAILY NATHANIEL Administration Senna 2 tab 12/22/17 13:28 Senokot Tab* PO BEDTIME PRN CONSTIPATION Vital Signs: Vital Signs Temp Pulse Resp BP Pulse Ox 98.6 F 58 24 163/59 96 01/09/18 15:42 01/09/18 15:42 01/09/18 15:42 01/09/18 15:42 01/09/18 15:42 Exam: HEENT: L facial droop. LUNGS: Clear bilaterally HEART: Regular rate and rhythm ABDOMEN: Soft, + BS, non-tender, non-distended EXTREMITIES: No edema. NEUROLOGIC: CN VII palsy. Some shoulder shrug on right Assessment/Plan: 1. 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 Prozac 20 mg. 2. Dysphagia: Mech Ground Texture, thin liquids. 3. Right heel ulcer: mepilex dressings. Multipodus boot with hourly checks and adjustments scheduled. 4. P. Atrial Fibrillation: Pradaxa/Lopressor 5. C. Diff: Oral Vanco finished and on Culturelle BID. Hold MagOx for a day or two. 6. Hypertension: Cozaar and Lopressor. prn hydralazine. 7. Hyperglycemia: Hgb A1c mildly elevated. Will follow 8. Hypomagnesemia: May need IV magnesium. 9. Advanced Directives: Has MOLST; DNR 10. Diarrhea: Slowing, had a semi solid BM today. 01/09/18 16:00
[2018-01-09] MEDS: Atorvastatin* 80 MG TAB PO SCH (17:19)
[2018-01-10] MEDS: FLUoxetine CAP* 20 MG PO SCH (08:58)
[2018-01-10] MEDS: Metoprolol Succinate XL TAB* 50 MG PO SCH (08:58)
[2018-01-10] MEDS: Losartan TAB* 25 MG PO SCH (08:58)
[2018-01-10] MEDS: CMC:Dabigatran CAP(NF) 150 MG CAP PO SCH ×2 (08:59→20:58)
[2018-01-10] MEDS: Lactobacillus Acidophilu (GG)* 1 CAP CAP PO SCH ×2 (08:59→20:58)
--- NOTE | 2018-01-10 15:42 | PN ---
Progress Note Date of Service: 01/10/18 Note: CANDI WADE was visited. Nursing notes read and reviewed. Stools are semi- formed. Will check Magnesium level in am. Current Medications: Active Medications Generic Name Dose Route Start Last Admin Trade Name Freq PRN Reason Stop Dose Admin Acetaminophen 650 mg 12/22/17 13:28 Tylenol Tab* PO Q6H PRN FEVER/PAIN Atorvastatin Calcium 80 mg 12/23/17 17:00 01/09/18 17:19 Lipitor* PO 80 mg 1700 NATHANIEL Administration Dabigatran 150 mg 12/22/17 21:00 01/10/18 08:59 Pradaxa Cap(Nf) PO 150 mg BID NATHANIEL Administration Docusate Sodium 100 mg 12/26/17 09:22 Colace Cap* PO BID PRN CONSTIPATION Fluoxetine HCl 20 mg 12/28/17 17:54 01/10/18 08:58 Prozac Cap* PO 20 mg DAILY NATHANIEL Administration Hydralazine HCl 5 mg 12/26/17 16:08 01/09/18 07:16 Apresoline Tab* PO 5 mg Q6H PRN Administration SBP >180 Lactobacillus Rhamnosus 1 cap 12/24/17 21:00 01/10/18 08:59 Culturelle* PO 1 cap BID NATHANIEL Administration Losartan Potassium 100 mg 12/23/17 09:00 01/10/18 08:58 Cozaar Tab* PO 100 mg DAILY NATHANIEL Administration Magnesium Hydroxide 30 ml 12/22/17 13:28 Milk Of Magnantonio Liq* PO Q6H PRN CONSTIPATION Metoprolol Succinate 50 mg 01/04/18 11:17 01/10/18 08:58 Toprol Xl Tab* PO 50 mg DAILY NATHANIEL Administration Senna 2 tab 12/22/17 13:28 Senokot Tab* PO BEDTIME PRN CONSTIPATION Vital Signs: Vital Signs Temp Pulse Resp BP Pulse Ox 97.9 F 56 16 156/63 94 01/10/18 05:02 01/10/18 05:02 01/10/18 05:02 01/10/18 05:02 01/10/18 11:40 Exam: HEENT: L facial droop. LUNGS: Clear bilaterally HEART: Regular rate and rhythm ABDOMEN: Soft, + BS, non-tender, non-distended EXTREMITIES: No edema. NEUROLOGIC: Some shoulder shrug on right Assessment/Plan: 1. 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 Prozac 20 mg. 2. Dysphagia: Mech Ground Texture, thin liquids. 3. Right heel ulcer: mepilex dressings. Multipodus boot with hourly checks and adjustments scheduled. 4. P. Atrial Fibrillation: Pradaxa/Lopressor 5. C. Diff: Oral Vanco finished and on Culturelle BID. Hold MagOx for a day or two. 6. Hypertension: Cozaar and Lopressor. prn hydralazine. 7. Hyperglycemia: Hgb A1c mildly elevated. Will follow 8. Hypomagnesemia: May need IV magnesium. Will check in am 9. Advanced Directives: Has MOLST; DNR 10. Diarrhea: Slowing, had a semi solid BM today. 01/10/18 15:43
[2018-01-10] MEDS: Atorvastatin* 80 MG TAB PO SCH (17:27)
[2018-01-11 06:16] LABS: EGFR Non-African American 71.2 (>60)
[2018-01-11] MEDS: Metoprolol Succinate XL TAB* 50 MG PO SCH (07:38)
[2018-01-11] MEDS: FLUoxetine CAP* 20 MG PO SCH (07:38)
[2018-01-11] MEDS: CMC:Dabigatran CAP(NF) 150 MG CAP PO SCH ×2 (07:38→19:56)
[2018-01-11] MEDS: Lactobacillus Acidophilu (GG)* 1 CAP CAP PO SCH ×2 (07:38→19:56)
[2018-01-11] MEDS: Losartan TAB* 25 MG PO SCH (07:38)
--- NOTE | 2018-01-11 16:00 | PN ---
Progress Note Date of Service: 01/11/18 Note: CANDI WADE was visited. Therapy notes read and reviewed. She is happy about eating foods but remains impaired with right sided weakness. Current Medications: Active Medications Generic Name Dose Route Start Last Admin Trade Name Freq PRN Reason Stop Dose Admin Acetaminophen 650 mg 12/22/17 13:28 Tylenol Tab* PO Q6H PRN FEVER/PAIN Atorvastatin Calcium 80 mg 12/23/17 17:00 01/10/18 17:27 Lipitor* PO 80 mg 1700 NATHANIEL Administration Dabigatran 150 mg 12/22/17 21:00 01/11/18 07:38 Pradaxa Cap(Nf) PO 150 mg BID NATHANIEL Administration Docusate Sodium 100 mg 12/26/17 09:22 Colace Cap* PO BID PRN CONSTIPATION Fluoxetine HCl 20 mg 12/28/17 17:54 01/11/18 07:38 Prozac Cap* PO 20 mg DAILY NATHANIEL Administration Hydralazine HCl 5 mg 12/26/17 16:08 01/09/18 07:16 Apresoline Tab* PO 5 mg Q6H PRN Administration SBP >180 Lactobacillus Rhamnosus 1 cap 12/24/17 21:00 01/11/18 07:38 Culturelle* PO 1 cap BID NATHANIEL Administration Losartan Potassium 100 mg 12/23/17 09:00 01/11/18 07:38 Cozaar Tab* PO 100 mg DAILY NATHANIEL Administration Magnesium Hydroxide 30 ml 12/22/17 13:28 Milk Of Magnesia Liq* PO Q6H PRN CONSTIPATION Metoprolol Succinate 50 mg 01/04/18 11:17 01/11/18 07:38 Toprol Xl Tab* PO 50 mg DAILY NATHANIEL Administration Senna 2 tab 12/22/17 13:28 Senokot Tab* PO BEDTIME PRN CONSTIPATION Vital Signs: Vital Signs Temp Pulse Resp BP Pulse Ox 97.6 F 60 20 177/61 97 01/11/18 05:49 01/11/18 07:38 01/11/18 05:49 01/11/18 05:49 01/11/18 05:49 Lab Results: Laboratory Results - last 24 hr 01/11/18 05:44 Sodium 135 Potassium 4.0 Chloride 102 Carbon Dioxide 29 Anion Gap 4 BUN 22 Creatinine 0.78 Est GFR ( Amer) 91.6 Est GFR (Non-Af Amer) 71.2 BUN/Creatinine Ratio 28.2 H Glucose 94 Calcium 9.0 Magnesium 1.5 L Total Bilirubin 0.60 AST 20 ALT 19 Alkaline Phosphatase 97 Total Protein 5.9 L Albumin 3.1 L Globulin 2.8 Albumin/Globulin Ratio 1.1 Exam: HEENT: L facial droop. LUNGS: Clear bilaterally HEART: Regular rate and rhythm ABDOMEN: Soft, + BS, non-tender, non-distended EXTREMITIES: No edema. NEUROLOGIC: Some shoulder shrug on right Assessment/Plan: 1. 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 Prozac 20 mg. 2. Dysphagia: Mech Ground Texture, thin liquids. 3. Right heel ulcer: mepilex dressings. Multipodus boot with hourly checks and adjustments scheduled. 4. P. Atrial Fibrillation: Pradaxa/Lopressor 5. Hypertension: Cozaar and Lopressor. prn hydralazine. 6. Hyperglycemia: Hgb A1c mildly elevated. Will follow 7. Hypomagnesemia: May need IV magnesium. Mg still ow today 8. Advanced Directives: Has MOLST; DNR 9. Diarrhea: Slowing, had a semi solid BM today. 01/11/18 16:00
[2018-01-11] MEDS: Atorvastatin* 80 MG TAB PO SCH (16:56)
[2018-01-12] MEDS: Lactobacillus Acidophilu (GG)* 1 CAP CAP PO SCH ×2 (09:50→19:37)
[2018-01-12] MEDS: CMC:Dabigatran CAP(NF) 150 MG CAP PO SCH ×2 (09:50→19:37)
[2018-01-12] MEDS: Metoprolol Succinate XL TAB* 50 MG PO SCH (09:50)
[2018-01-12] MEDS: Losartan TAB* 25 MG PO SCH (09:50)
[2018-01-12] MEDS: FLUoxetine CAP* 20 MG PO SCH (09:50)
--- NOTE | 2018-01-12 12:40 | PMRUTEAM ---
PMRU: Goals Current Status: Nursing: Current Status Skin Deviations [Right Lower Abrasion Leg] Skin Deviations [Buttocks] Other Skin Deviations [Right Heel] Wound,Other Skin Deviations [Left Heel] Other Skin Deviation Description [ Skin protective cream applied Right Lower Leg] Skin Deviation Description [ redness blanchable Buttocks] Skin Deviation Description [ mepelex Right Heel] Skin Deviation Description [ Spanko boot in place, redness - blanchable Left Heel] Wound Stage [Right Heel] II Physical Therapy: Current Status Bed Mobility Assistance Mod Assist Transfer Moblility Assistance Mod Assist Transfer/Bed Mobility None Recommended Devices Transfer Mobility Comment mod to max A x 1 SPT Ambulation Assistance Unable Ambulation Assistive Devices Alpesh Walker Number of Feet Patient 15 Ambulated Ambulation Comment Pt. is able to transition from sit to stand min to mod A x 1. Stairs Assistance Not Tested Curb Not Tested Occupational Therapy: Current Status Upper Body Dressing Min Assist Upper Body Dressing Progress with max v/c's Lower Body Dressing Max Asst,2 Person Assist Lower Body Dressing Progress 2 person assist in standing, pt able to thread LLE seated in chair Bathing Mod Assist,2 Person Assist Bathing Progress 2 person assist in standing, assist for LUE and anika lower legs/feet Toileting Total Assist,2 Person Assist Toileting Progress 1 person assist for standing balance,assist of another for clothing/hygiene Toilet Transfer Max Asst Toilet Transfer Progress SPT with hemisling/gait belt, blocking right knee , mod v/c's Shower Transfer Total Assist Shower Transfer Progress roll in shower Eating Supervision Eating Progress setupA Rec Therapy: Current Status Summary of Assessment and RT assessment completed 12/23, pt. is aware of Clinical Impression services and engages during leisure visits. Pt. enjoys and completes word puzzles during free-time and engages in pet visitation on the weekend. Treatment Goals Patient will engage in recreation and leisure activities while on the unit. Treatment Plan Will follow up with patient regularly for leisure visits and provide recreational activities as appropriate. Social Work: Current Status Discharge Plan return home with home care svs and family support Potential for Family Training pt's daughter and granddaughter are involved and attentive Anticipated Discharge Home Destination Discharge With home care svs and family support Nutrition: Current Status Monitoring diet changed to consistent carb (01/02). VFSS performed 01/08; diet upgraded mech ground solids, THIN liquids. PO intake notable improved, averaging 75% of meals since upgraded. Requires monitoring during meals for safety and menu selections reviewed and modified daily by RDN as appropriate. Mag remains low (1.5); may slowly improve now that po intake increased. If diarrhea controlled, suggest resume Magox (400mg/day). Also suggest obtain weekly weight. Speech: Current Status Assessment Pt is progressing as expected, with improvement in functional reading, verba memory and sequencing. Goals: Physical Therapy: Initial Goals Bed Mobility Assistance Independent Transfer Mobility Assistance Independent Transfer/Bed Mobility Alpesh Walker Recommended Devices Ambulation Independent Ambulation Recommended Devices Alpesh Walker Ambulation Distance 50 Stairs Assistance Independent Stair Recommended Devices One Rail Number of Stairs 5 Physical Therapy: Updated Goals Bed Mobility Assistance Independent Transfer Mobility Assistance Independent Transfer/Bed Mobility Alpesh Walker Recommended Devices Ambulation Assistance Independent Ambulation Assistive Devices Alpesh Walker Stairs Assistance Independent Stairs Recommended Devices One Rail Number of Stairs 5 Occupational Therapy: Initial Goals Goals to be Completed in (Days 4-6 weeks ) Upper Body Bathing Routine Modified Independent with Lower Body Bathing Routine Modified Independent with Upper Body Dressing Routine Modified Independent with Lower Body Dressing Routine Modified Independent with Toilet Hygeine and Clothing Modified Independent with Management Routine Toilet Transfer Routine Modified Independent with Step-In Shower Transfer Modified Independent with Routine Tub Transfer Routine Modified Independent with Functional Transfers for ADL Modified Independent with Grooming Routine Modified Independent with Feeding Routine Modified Independent with Nutrition: Goals Intervention Goals 1. pt will tolerate least-restrictive diet texture and liquid consistency without s/sx aspiration 2. adequate po intake to maintain lean body mass and hydration; no clinical s/sx dehydration 3. bowel pattern will be regulated; no c/o diarrhea (or constipation) 4. Skin will show signs of healing without further breakdown 5. achieve and maintain serum K within satisfactory range 6. BG will be adequately controlled per inpt parameters 7. Any further instruction will be provided prior to d/c Speech: Goals Speech Goal 1 Swallowing Goal 1 Comments Videofluoroscopic swallow study on 01/08/18 showed adequate oral preparation and control of soft solid consistencie and thin liquids, R-side oral residue of chopped solids, adequate phayngeal swallows function, and no laryngeal penetration or tracheal aspiration of thin liquids. PESTICIDE CHEMIST recommended and provider ordered upgrade to mechanical soft/ground diet and thin liquids. As per nsg notes and verbal reports, pt has since consistently tolerated upgrade w/ minimal oral pocketing that staff have cleared with oral care. No clinical s/s aspiration have been reported, and pt has maintained clear lung sounds. Long-Term Goal: Pt will tolerate least restrictive diet consistencies with adequate mastication, no oral residue, and no clinical s/s or complications from aspiration. Short-Term Goals 1) STG: (Pureed consistency and nectar liquids). Met. 2) STG: Pt will will demonstrate adequate mastication of soft solids, using compensatory strategies to clear oral residue from R side of oral cavity, given minimal cueing. Status: Met 3) STG: Pt will tolerate thin liquids at meals with no clinical s/s or complications from aspiration and adequate PO intake. Status: Met. New Short-term Goal: 4) STG: Pt will tolerate least restrictive diet consistencies with adequate mastication, no oral residue, and no clinical s/s or complications from aspiration. Status: Ongoing Speech Goal 2 Problem Solving Speech Goal 2 Comments Pt continues to demonstAte steady improvement in problem solving skills with advances in attention, memory, reasoning, reading and writing. Long-Term Goals: 1) LTG: Pt will solve functional daily problems independently using compensatory strategies as needed. 2) LTG: Pt will read and write basic functional information, using non-dominant hand and compensatory strategies independently. Short-Term Goals: 1) STG: Pt will demonstrate use of compensatory strategies to solve simple memory, feeding and self-care problems, including attention to the Rght side of her work area and tasks. Status: Ongoing. Pt answered orientation questions accurately. Given verbal stimuli, pt recalled 3 words with 100% accuracy and answered sequencing questions with 80% accuracy given minimal cueing. Pt recalled 4 words answered sequencing questions with with 70% accuracy, most frequently forgetting the first words. Pt improved performance when given the question before the list, to 80% accuracy. 2) STG: Pt will read simple 1-2 step directions, using compensatory strategies, with 80% accuracy, given Minimal cueing. Status: Ongoing. Status: Met at criteria of 80% accuracy with minimal cues. Revised goal: Pt will read simple 2 step directions, using compensatory strategies, with 90% accuracy, given Minimal cueing. 3) STG: Pt will draw basic shapes and write letters, using nondominant Left hand and compensatory strategies. Status: Ongoing. Patient copied letters accurately, and required moderate cueing to read letters by recalling sequence. Pt required "count up" strategy to recognize letters or days in sequence. Social Work: Goals Discharge Plan return home with home care svs and family support Potential for Family Training pt's daughter and granddaughter are involved and attentive Anticipated Discharge Home Destination Discharge With home care svs and family support Care Plan: Care Plan ADL's - Improve/Maintain Start: 12/22/17 15:29 Freq: QSHIFT Status: Active Target: Protocol: Activity Type Activity Date Activity User E-Sign Co-Sign Detail Recorded Client Recorded Date Recorded By Document 01/11/18 16:22 [id number] 01/11/18 16:22 [id number] 01/11/18 16:22 PMRU Outcome: ADL's/ADL Transfers Orders/Interventions Occupational Therapy Evaluation & Treatment Communication Tool in Patient Room Address Deficits Secondary To: CVA Patient to receive OT 5x/wk for 60-120 Therex min/day Self Care Management Group Therapy Neuromuscular ReEducation UE/LE ADL's with Assist Yes: Ken ADL Transfers with Assist Yes: Ken Toileting: Transfers,Clothing Management Yes: Ken ,Hygeine w/Assist Light Kitchen/Laundry w/Assist Yes: Lilly Progression Toward Outcome/Goals Progressing Outcome/Goals Met Pt participated well in OT treatment session, increased alertness and participation, pt appears pleased to be on upgraded diet since Thursday and appears to have more energy, improved sitting balance from late last week as well. Communication-Improve/Maintain Start: 12/24/17 02:06 Freq: QSHIFT Status: Active Target: Protocol: Activity Type Activity Date Activity User E-Sign Co-Sign Detail Recorded Client Recorded Date Recorded By Document 01/12/18 01:10 [id number] 01/12/18 01:10 [id number] 01/12/18 01:10 PMRU Outcome: Communication/Cognitive Status Outcome/Goals Use Comm Tools/ Devices Makes Needs Known Effectively Other Outcomes/Goals Long-Term Goals , Problem Solvin) LTG: Pt will solve functional daily problems independently using compensatory strategies as needed. Status: Ongoing. 2) LTG: Pt will read and write basic functional information, using non- dominant hand and compensatory strategies independently. Short-Term Goals: 1) STG: Pt will demonstrate use of compensatory strategies to solve simple memory, feeding and self-care problems, including attention to the Rght side of her work area and tasks. 2) STG: Pt will read simple 1-2 step directions, using compensatory strategies, with 80% accuracy, given Minimal cueing . 3) STG: Pt will draw basic shapes and write letters, using nondominant Left hand and compensatory strategies. Progression Toward Outcomes/Goals Progressing Coping/Psych-Improve/Maintain Start: 12/24/17 02:06 Freq: QSHIFT Status: Active Target: Protocol: Activity Type Activity Date Activity User E-Sign Co-Sign Detail Recorded Client Recorded Date Recorded By Document 01/12/18 01:10 [id number] 01/12/18 01:10 [id number] 01/12/18 01:10 PMRU Outcome: Coping/Psychosocial Coping Outcome/Goals Verbalization of Acceptance of Rehab Admit Verbalization of Sense of Control Over Health Status Utilization of Appropriate Problem Solving Techniques Willingness to Participate in Treatment Plan and Basic Needs Utilization of Available Support Systems Absence of Destructive Behavior to Self/Others Psychosocial Outcome/Goals Maintain/ Improve Emotional Health Progression Toward Outcome/Goals - Progressing Coping Progression Toward Outcome/Goals - Progressing Psychosocial Discharge Planning - Improve/Maintain Start: 12/24/17 02:06 Freq: QSHIFT Status: Active Target: Protocol: Activity Type Activity Date Activity User E-Sign Co-Sign Detail Recorded Client Recorded Date Recorded By Document 01/12/18 01:10 [id number] 01/12/18 01:10 [id number] 01/12/18 01:10 PMRU Outcome: Discharge Planning Identify Patient Needs yes Update Patient Family No Outcome/Goals Demonstrates Understanding of Discharge Plan Progression Toward Outcome/Goals Progressing Education-Improve/Maintain Start: 12/24/17 02:06 Freq: QSHIFT Status: Active Target: Protocol: Activity Type Activity Date Activity User E-Sign Co-Sign Detail Recorded Client Recorded Date Recorded By Document 01/12/18 01:10 [id number] 01/12/18 01:10 [id number] 01/12/18 01:10 PMRU Outcome: Education Outcome/Goals Demonstrate/ Verbalize Understanding of Written Discharge Instructions Demonstrates Skills Encourage Questions Progression Toward Outcome/Goals Progressing /GI-Improve/Maintain Start: 12/24/17 02:06 Freq: QSHIFT Status: Active Target: Protocol: Activity Type Activity Date Activity User E-Sign Co-Sign Detail Recorded Client Recorded Date Recorded By Document 01/12/18 01:10 [id number] 01/12/18 01:10 [id number] 01/12/18 01:10 PMRU Outcome: Genitourinary/ Gastrointestinal Genitourinary- Outcome/Goals Maintain/ Achieve Adequate Urinary Output Remain Free of Hospital- Acquired UTI Gastrointestinal-Outcome/Goals Maintain/ Achieve Bowel Regularity in Accordance with Pt's Baseline Prevent Constipation Progression Toward Outcome/Goals - Progressing Progression Toward Outcome/Goals - GI Progressing Medication Administration Start: 12/24/17 02:06 Freq: QSHIFT Status: Active Target: Protocol: Activity Type Activity Date Activity User E-Sign Co-Sign Detail Recorded Client Recorded Date Recorded By Document 01/12/18 01:10 [id number] 01/12/18 01:10 [id number] 01/12/18 01:10 PMRU Outcome: Medication Administration Assess Patient Knowledge/Teach Med Yes Education for all Meds Outcome/Goals Family/ Caregiver Administer Medications at Home Progression Towards Outcome/Goals Progressing Is Patient Going Home on Lovenox? No Mobility- Improve/Maintain Start: 12/22/17 18:22 Freq: QSHIFT Status: Active Target: Protocol: Activity Type Activity Date Activity User E-Sign Co-Sign Detail Recorded Client Recorded Date Recorded By Document 01/07/18 17:32 [id number] 01/07/18 17:32 [id number] 01/07/18 17:32 PMRU Outcome: Mobility Physical Therapy Evaluation and Yes Treatment Activity OOB with Assistance Yes Device Yes Assistance Yes Patient to be seen 5x/wk for 60-120 min/ Therex day for: Mobility Training Gait Training W/C Mobility Balance Outcome/Goals Maintain/ Achieve Baseline Mobility Status Improve Mobility Status Demonstrates Proper Use of Assistive Devices Free from Complications of Immobility Progression Toward Outcome/Goals Progressing Bed Mobility Yes: independent Transfers Yes: independnet with alpesh walker Gait x ft Yes: independent with alpesh walker to household distances (50') Up/Down Stairs Yes: independent with 1 rail up/ down 5 Neurological- Improve/Maintain Start: 12/24/17 02:06 Freq: QSHIFT Status: Active Target: Protocol: Activity Type Activity Date Activity User E-Sign Co-Sign Detail Recorded Client Recorded Date Recorded By Document 01/12/18 01:10 [id number] 01/12/18 01:10 [id number] 01/12/18 01:10 PMRU Outcome: Neurological Weakness/Aphasia Weakness Right Side Outcome/Goals Improve Neurological Status Prevent Avoidable Neurological Decline Maintain/ Improve Strength/ROM Progression Toward Outcome/Goals Progressing Nutrition/Swallowing- Improve/Maintain Start: 12/24/17 02:06 Freq: QSHIFT Status: Active Target: Protocol: Activity Type Activity Date Activity User E-Sign Co-Sign Detail Recorded Client Recorded Date Recorded By Document 01/12/18 01:10 [id number] 01/12/18 01:10 [id number] 01/12/18 01:10 PMRU Outcome: Nutrition/Swallowing Outcome/Goals Demonstrates Adequate Hydration/ Prevents Dehydration Maintain/ Improve Nutritional Status Progression Toward Outcome/Goals Progressing Safety- Improve/Maintain Start: 12/24/17 02:06 Freq: QSHIFT Status: Active Target: Protocol: Activity Type Activity Date Activity User E-Sign Co-Sign Detail Recorded Client Recorded Date Recorded By Document 01/12/18 01:10 [id number] 01/12/18 01:10 [id number] 01/12/18 01:10 PMRU Outcome: Safety Outcome/Goals Remain Free of Injury or Harm Cooperates with Safety Measures for Least Restrictive Environment Prevent Falls/ Injury Progression Toward Outcome/Goals Progressing Outcome/Goals Met Comment PA in place Skin- Improve/Maintain Start: 12/24/17 02:06 Freq: QSHIFT Status: Active Target: Protocol: Activity Type Activity Date Activity User E-Sign Co-Sign Detail Recorded Client Recorded Date Recorded By Document 01/12/18 01:10 [id number] 01/12/18 01:10 [id number] 01/12/18 01:10 PMRU Outcome: Skin Skin Risk Level High Skin Orders Dressing Change Air Mattress Spenco Boots Multipodus Boot Heels Off Bed Turn/Position q2hr While in Bed Outcome/Goals Maintain/ Improve Skin Intergrity Maintain/ Improve Wound Status Progression Toward Outcome/Goals Progressing Outcome/Goals Met Comment multipodus boot to R foot, spanko to L foot Medicine Note: Length of Stay: 3 weeks Anticipated Discharge Destination: Home Tentative Discharge Date: 02/05/18 Discharged to: TBD
[2018-01-12] MEDS: Atorvastatin* 80 MG TAB PO SCH (16:36)
--- NOTE | 2018-01-12 16:43 | PN ---
Progress Note Date of Service: 01/12/18 Note: CANDI WADE was visited. Therapy notes read and reviewed. She was discussed in interdisciplinary team rounds. She has made gains with swallowing, but in her mobility remains impaired. Will need to have a family meeting prior soon to discuss family training Current Medications: Active Medications Generic Name Dose Route Start Last Admin Trade Name Freq PRN Reason Stop Dose Admin Acetaminophen 650 mg 12/22/17 13:28 Tylenol Tab* PO Q6H PRN FEVER/PAIN Atorvastatin Calcium 80 mg 12/23/17 17:00 01/12/18 16:36 Lipitor* PO 80 mg 1700 NATHANIEL Administration Dabigatran 150 mg 12/22/17 21:00 01/12/18 09:50 Pradaxa Cap(Nf) PO 150 mg BID NATHANIEL Administration Docusate Sodium 100 mg 12/26/17 09:22 Colace Cap* PO BID PRN CONSTIPATION Fluoxetine HCl 20 mg 12/28/17 17:54 01/12/18 09:50 Prozac Cap* PO 20 mg DAILY NATHANIEL Administration Hydralazine HCl 5 mg 12/26/17 16:08 01/09/18 07:16 Apresoline Tab* PO 5 mg Q6H PRN Administration SBP >180 Lactobacillus Rhamnosus 1 cap 12/24/17 21:00 01/12/18 09:50 Culturelle* PO 1 cap BID NATHANIEL Administration Losartan Potassium 100 mg 12/23/17 09:00 01/12/18 09:50 Cozaar Tab* PO 100 mg DAILY NATHANIEL Administration Magnesium Hydroxide 30 ml 12/22/17 13:28 Milk Of Magnesia Liq* PO Q6H PRN CONSTIPATION Metoprolol Succinate 50 mg 01/04/18 11:17 01/12/18 09:50 Toprol Xl Tab* PO 50 mg DAILY NATHANIEL Administration Senna 2 tab 12/22/17 13:28 Senokot Tab* PO BEDTIME PRN CONSTIPATION Vital Signs: Vital Signs Temp Pulse Resp BP Pulse Ox 98.0 F 49 18 176/80 98 01/12/18 15:52 01/12/18 15:52 01/12/18 15:52 01/12/18 15:52 01/12/18 15:52 Exam: HEENT: L facial droop. LUNGS: Clear bilaterally HEART: Regular rate and rhythm ABDOMEN: Soft, + BS, non-tender, non-distended EXTREMITIES: No edema. NEUROLOGIC: Some shoulder shrug on right Assessment/Plan: 1. 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 Prozac 20 mg. 2. Dysphagia: Mech Ground Texture, thin liquids. 3. Right heel ulcer: mepilex dressings. Multipodus boot with hourly checks and adjustments scheduled. 4. P. Atrial Fibrillation: Pradaxa/Lopressor 5. Hypertension: Cozaar and Lopressor. prn hydralazine. 6. Hyperglycemia: Hgb A1c mildly elevated. Will follow 7. Hypomagnesemia: May need IV magnesium. Mg still low will see as her diet and intake improve if her Mg will rise 8. Advanced Directives: Has MOLST; DNR 9. Diarrhea: Slowing, had a semi solid BM. 01/12/18 16:44
[2018-01-13 07:13] LABS: ABS Basophils 0.1 10^3/ul (0-0.2); ABS Eosinophils 0.3 10^3/ul (0-0.6); ABS Monocytes 1.2 10^3/ul (0-0.8); ABS Neutrophils 5.2 10^3/ul (1.5-7.7); ABS Nucleated RBC 0 10^3/ul; Hematocrit 39 % (35-47); Hemoglobin 13.2 g/dl (12.0-16.0); Lymphocyte % 30.4 % (25-47); Mean Corpuscular HGB Conc 34 g/dl (31-36); Mean Corpuscular Hemoglobin 29 pg (27-31); Mean Corpuscular Volume 84 fL (80-97); Mean Platelet Volume 9 um3 (7.4-10.4); Nucleated Red Blood Cells % 0.1; Platelet Count 245 10^3/ul (150-450); Red Blood Count 4.62 10^6/ul (4.0-5.4); Red Cell Distribution Width 15 % (10.5-15); White Blood Count 9.7 10^3/ul (3.5-10.8)
[2018-01-13 07:25] LABS: EGFR Non-African American 91.2 (>60)
[2018-01-13] MEDS: Losartan TAB* 25 MG PO SCH (09:26)
[2018-01-13] MEDS: CMC:Dabigatran CAP(NF) 150 MG CAP PO SCH ×2 (09:27→19:18)
[2018-01-13] MEDS: FLUoxetine CAP* 20 MG PO SCH (09:27)
[2018-01-13] MEDS: Metoprolol Succinate XL TAB* 50 MG PO SCH (09:27)
[2018-01-13] MEDS: Lactobacillus Acidophilu (GG)* 1 CAP CAP PO SCH ×2 (09:27→19:18)
[2018-01-13] MEDS: Atorvastatin* 80 MG TAB PO SCH (16:33)
--- NOTE | 2018-01-13 20:08 | PN ---
Progress Note Date of Service: 01/13/18 Note: CANDI WADE was visited. Therapy notes read and reviewed. Her diarrhea has finally stopped, and she had a formed BM. Otherwise doing ok Current Medications: Active Medications Generic Name Dose Route Start Last Admin Trade Name Freq PRN Reason Stop Dose Admin Acetaminophen 650 mg 12/22/17 13:28 Tylenol Tab* PO Q6H PRN FEVER/PAIN Atorvastatin Calcium 80 mg 12/23/17 17:00 01/13/18 16:33 Lipitor* PO 80 mg 1700 NATHANIEL Administration Dabigatran 150 mg 12/22/17 21:00 01/13/18 19:18 Pradaxa Cap(Nf) PO 150 mg BID NATHANIEL Administration Docusate Sodium 100 mg 12/26/17 09:22 Colace Cap* PO BID PRN CONSTIPATION Fluoxetine HCl 20 mg 12/28/17 17:54 01/13/18 09:27 Prozac Cap* PO 20 mg DAILY NATHANIEL Administration Hydralazine HCl 5 mg 12/26/17 16:08 01/09/18 07:16 Apresoline Tab* PO 5 mg Q6H PRN Administration SBP >180 Lactobacillus Rhamnosus 1 cap 12/24/17 21:00 01/13/18 19:18 Culturelle* PO 1 cap BID NATHANIEL Administration Losartan Potassium 100 mg 12/23/17 09:00 01/13/18 09:26 Cozaar Tab* PO 100 mg DAILY NATHANIEL Administration Magnesium Hydroxide 30 ml 12/22/17 13:28 Milk Of Magnantonio Liq* PO Q6H PRN CONSTIPATION Metoprolol Succinate 50 mg 01/04/18 11:17 01/13/18 09:27 Toprol Xl Tab* PO 50 mg DAILY NATHANIEL Administration Senna 2 tab 12/22/17 13:28 Senokot Tab* PO BEDTIME PRN CONSTIPATION Vital Signs: Vital Signs Temp Pulse Resp BP Pulse Ox 97.5 F 50 18 167/72 100 01/13/18 16:08 01/13/18 16:08 01/13/18 17:57 01/13/18 16:08 01/13/18 17:57 Lab Results: Laboratory Results - last 24 hr 01/13/18 01/13/18 06:40 06:40 WBC 9.7 RBC 4.62 Hgb 13.2 Hct 39 MCV 84 MCH 29 MCHC 34 RDW 15 Plt Count 245 MPV 9 Neut % (Auto) 53.1 Lymph % (Auto) 30.4 [place] % (Auto) 12.4 H Eos % (Auto) 3.0 Baso % (Auto) 1.1 Absolute Neuts (auto) 5.2 Absolute Lymphs (auto) 3.0 Absolute Monos (auto) 1.2 H Absolute Eos (auto) 0.3 Absolute Basos (auto) 0.1 Absolute Nucleated RBC 0 Nucleated RBC % 0.1 Sodium 132 L Potassium 3.3 L Chloride 101 Carbon Dioxide 25 Anion Gap 6 BUN 16 Creatinine 0.63 Est GFR ( Amer) 117.2 Est GFR (Non-Af Amer) 91.2 BUN/Creatinine Ratio 25.4 H Glucose 91 Calcium 8.9 Total Bilirubin 0.60 AST 17 ALT 16 Alkaline Phosphatase 97 Total Protein 5.9 L Albumin 3.1 L Globulin 2.8 Albumin/Globulin Ratio 1.1 Exam: HEENT: L facial droop. LUNGS: Clear bilaterally HEART: Regular rate and rhythm ABDOMEN: Soft, + BS, non-tender, non-distended EXTREMITIES: No edema. NEUROLOGIC: Some shoulder shrug on right Assessment/Plan: 1. 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 Prozac 20 mg. 2. Dysphagia: Mech Ground Texture, thin liquids. 3. Right heel ulcer: mepilex dressings. Multipodus boot with hourly checks and adjustments scheduled. 4. P. Atrial Fibrillation: Pradaxa/Lopressor 5. Hypertension: Cozaar and Lopressor. prn hydralazine. 6. Hyperglycemia: Hgb A1c mildly elevated. Will follow 7. Hypomagnesemia: May need IV magnesium. Mg still low will see as her diet and intake improve if her Mg will rise 8. Advanced Directives: Has MOLST; DNR 9. Diarrhea: Slowing, had a semi solid BM. 01/13/18 20:21
[2018-01-14] MEDS: FLUoxetine CAP* 20 MG PO SCH (09:38)
[2018-01-14] MEDS: Lactobacillus Acidophilu (GG)* 1 CAP CAP PO SCH ×2 (09:38→20:41)
[2018-01-14] MEDS: Metoprolol Succinate XL TAB* 50 MG PO SCH (09:38)
[2018-01-14] MEDS: CMC:Dabigatran CAP(NF) 150 MG CAP PO SCH ×2 (09:38→20:40)
[2018-01-14] MEDS: Losartan TAB* 25 MG PO SCH (09:38)
[2018-01-14] MEDS: Atorvastatin* 80 MG TAB PO SCH (17:30)
--- NOTE | 2018-01-14 21:52 | PN ---
Progress Note Date of Service: 01/14/18 Note: CANDI WADE was visited. Therapy notes read and reviewed. She feels good, and is enjoying eating. She otherwise is doing ok. Current Medications: Active Medications Generic Name Dose Route Start Last Admin Trade Name Freq PRN Reason Stop Dose Admin Acetaminophen 650 mg 12/22/17 13:28 Tylenol Tab* PO Q6H PRN FEVER/PAIN Atorvastatin Calcium 80 mg 12/23/17 17:00 01/14/18 17:30 Lipitor* PO 80 mg 1700 NATHANIEL Administration Dabigatran 150 mg 12/22/17 21:00 01/14/18 20:40 Pradaxa Cap(Nf) PO 150 mg BID NATHANIEL Administration Docusate Sodium 100 mg 12/26/17 09:22 Colace Cap* PO BID PRN CONSTIPATION Fluoxetine HCl 20 mg 12/28/17 17:54 01/14/18 09:38 Prozac Cap* PO 20 mg DAILY NATHANIEL Administration Hydralazine HCl 5 mg 12/26/17 16:08 01/09/18 07:16 Apresoline Tab* PO 5 mg Q6H PRN Administration SBP >180 Lactobacillus Rhamnosus 1 cap 12/24/17 21:00 01/14/18 20:41 Culturelle* PO 1 cap BID NATHANIEL Administration Losartan Potassium 100 mg 12/23/17 09:00 01/14/18 09:38 Cozaar Tab* PO 100 mg DAILY NATHANIEL Administration Magnesium Hydroxide 30 ml 12/22/17 13:28 Milk Of Magnantonio Liq* PO Q6H PRN CONSTIPATION Metoprolol Succinate 50 mg 01/04/18 11:17 01/14/18 09:38 Toprol Xl Tab* PO 50 mg DAILY NATHANIEL Administration Senna 2 tab 12/22/17 13:28 Senokot Tab* PO BEDTIME PRN CONSTIPATION Vital Signs: Vital Signs Temp Pulse Resp BP Pulse Ox 97.8 F 48 20 160/59 97 01/14/18 17:29 01/14/18 17:29 01/14/18 18:10 01/14/18 17:29 01/14/18 17:29 Exam: HEENT: L facial droop. LUNGS: Clear bilaterally HEART: Regular rate and rhythm ABDOMEN: Soft, + BS, non-tender, non-distended EXTREMITIES: No edema. NEUROLOGIC: Some hip flexion and shoulder on right Assessment/Plan: 1. 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 Prozac 20 mg. 2. Dysphagia: Mech Ground Texture, thin liquids. 3. Right heel ulcer: mepilex dressings. Multipodus boot with hourly checks and adjustments scheduled. 4. P. Atrial Fibrillation: Pradaxa/Lopressor 5. Hypertension: Cozaar and Lopressor. prn hydralazine. 6. Hyperglycemia: Hgb A1c mildly elevated. Will follow 7. Hypomagnesemia: May need IV magnesium. Mg still low; will see as her diet and intake improve if her Mg will rise 8. Advanced Directives: Has MOLST; DNR 9. Diarrhea: Stopped, had a solid BM. 01/14/18 21:53
[2018-01-15] MEDS: FLUoxetine CAP* 20 MG PO SCH (08:37)
[2018-01-15] MEDS: CMC:Dabigatran CAP(NF) 150 MG CAP PO SCH ×2 (08:37→19:54)
[2018-01-15] MEDS: Losartan TAB* 25 MG PO SCH (08:38)
[2018-01-15] MEDS: Lactobacillus Acidophilu (GG)* 1 CAP CAP PO SCH ×2 (08:38→19:54)
[2018-01-15] MEDS: Metoprolol Succinate XL TAB* 50 MG PO SCH (08:39)
[2018-01-15] MEDS ORDERED: Potassium Chlor TAB* 20 MEQ TAB.ER PO SCH (09:00)
[2018-01-15 10:54] LABS: EGFR Non-African American 87.9 (>60)
--- NOTE | 2018-01-15 11:55 | PN ---
Progress Note Date of Service: 01/15/18 Note: CANDI WADE was visited. Nursing and therapy notes read and reviewed. No chest pain, shortness of breath or abdominal pain. She is happier with her current diet and eating better. She denies any pain. Has isotoner glove on right hand. Current Medications: Active Medications Generic Name Dose Route Start Last Admin Trade Name Freq PRN Reason Stop Dose Admin Acetaminophen 650 mg 12/22/17 13:28 Tylenol Tab* PO Q6H PRN FEVER/PAIN Atorvastatin Calcium 80 mg 12/23/17 17:00 01/14/18 17:30 Lipitor* PO 80 mg 1700 NATHANIEL Administration Dabigatran 150 mg 12/22/17 21:00 01/15/18 08:37 Pradaxa Cap(Nf) PO 150 mg BID NATHANIEL Administration Docusate Sodium 100 mg 12/26/17 09:22 Colace Cap* PO BID PRN CONSTIPATION Fluoxetine HCl 20 mg 12/28/17 17:54 01/15/18 08:37 Prozac Cap* PO 20 mg DAILY NATHANIEL Administration Hydralazine HCl 5 mg 12/26/17 16:08 01/09/18 07:16 Apresoline Tab* PO 5 mg Q6H PRN Administration SBP >180 Lactobacillus Rhamnosus 1 cap 12/24/17 21:00 01/15/18 08:38 Culturelle* PO 1 cap BID NATHANIEL Administration Losartan Potassium 100 mg 12/23/17 09:00 01/15/18 08:38 Cozaar Tab* PO 100 mg DAILY NATHANIEL Administration Magnesium Hydroxide 30 ml 12/22/17 13:28 Milk Of Magnesia Liq* PO Q6H PRN CONSTIPATION Metoprolol Succinate 50 mg 01/04/18 11:17 01/15/18 08:39 Toprol Xl Tab* PO 50 mg DAILY NATHANIEL Administration Potassium Chloride 20 meq 01/15/18 09:00 01/15/18 08:40 Klor Con Er Tab* PO 20 meq BID NATHANIEL Administration Senna 2 tab 12/22/17 13:28 Senokot Tab* PO BEDTIME PRN CONSTIPATION Vital Signs: Vital Signs Temp Pulse Resp BP Pulse Ox 98.1 F 60 18 165/80 94 01/15/18 05:32 01/15/18 05:32 01/15/18 05:32 01/15/18 05:32 01/15/18 05:32 Lab Results: Laboratory Results - last 24 hr 01/15/18 10:22 Sodium 134 Potassium 3.9 Chloride 100 L Carbon Dioxide 28 Anion Gap 6 BUN 20 Creatinine 0.65 Est GFR ( Amer) 113.1 Est GFR (Non-Af Amer) 87.9 BUN/Creatinine Ratio 30.8 H Glucose 101 H Calcium 9.4 Magnesium 1.5 L Exam: GEN: No acute distress. Alert and appropriate. HEENT: L facial droop. LUNGS: Clear bilaterally HEART: Regular rate and rhythm ABDOMEN: Soft, + BS, non-tender, non-distended NEUROLOGIC: CN VII palsy. trace right shoulder shrug and movement of her right hip and great toe. EXTREMITIES: Right leg SUDHAKAR wrapped with dressing on. Assessment/Plan: 77yo woman s/p CVA with right hemiplegia, dysphagia, dysarthria, and cognitive impairment. 1. 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 Prozac 20 mg. 2. Dysphagia: Mech Ground Texture, thin liquids. 3. Right heel ulcer: mepilex dressings. Multipodus boot with hourly checks and adjustments scheduled. 4. P. Atrial Fibrillation: Pradaxa/Lopressor 5. Hypertension: Cozaar and Lopressor. prn hydralazine. May need increase lopressor. 6. Hyperglycemia: Hgb A1c mildly elevated. Will follow 7. Hypomagnesemia/Hypokalemia: Mg still low, but stable. Will see as her diet and intake improve if her Mg will rise. I d/w her IV Magnesium sulfate. She has concern of her sulfa allergy from an antibiotic and does not want to take Magnesium oxide since had diarrhea, which has resolved. Will keep on a 20meq KCL daily. 8. Advanced Directives: Has MOLST; DNR 9. Diarrhea: Stopped, had a solid BM. 01/15/18 11:52
[2018-01-15] MEDS: Atorvastatin* 80 MG TAB PO SCH (16:00)
[2018-01-16] MEDS: FLUoxetine CAP* 20 MG PO SCH (09:30)
[2018-01-16] MEDS: Lactobacillus Acidophilu (GG)* 1 CAP CAP PO SCH ×2 (09:30→19:59)
[2018-01-16] MEDS: Losartan TAB* 25 MG PO SCH (09:30)
[2018-01-16] MEDS: CMC:Dabigatran CAP(NF) 150 MG CAP PO SCH ×2 (09:30→19:59)
[2018-01-16] MEDS: Metoprolol Succinate XL TAB* 50 MG PO SCH (09:30)
[2018-01-16] MEDS: Potassium Chlor TAB* 20 MEQ TAB.ER PO SCH (09:31)
--- NOTE | 2018-01-16 10:31 | PN ---
Progress Note Date of Service: 01/16/18 Note: CANDI WADE was visited. Nursing and therapy notes read and reviewed. No chest pain, shortness or breath or abdominal pain. Using isotoner glove on right hand to decrease swelling. PT requests knee immobilizer to use in PT sessions for standing. Current Medications: Active Medications Generic Name Dose Route Start Last Admin Trade Name Freq PRN Reason Stop Dose Admin Acetaminophen 650 mg 12/22/17 13:28 Tylenol Tab* PO Q6H PRN FEVER/PAIN Amlodipine Besylate 5 mg 01/16/18 10:00 Norvasc Tab* PO DAILY NATHANIEL Atorvastatin Calcium 80 mg 12/23/17 17:00 01/15/18 16:00 Lipitor* PO 80 mg 1700 NATHANIEL Administration Dabigatran 150 mg 12/22/17 21:00 01/16/18 09:30 Pradaxa Cap(Nf) PO 150 mg BID NATHANIEL Administration Docusate Sodium 100 mg 12/26/17 09:22 Colace Cap* PO BID PRN CONSTIPATION Fluoxetine HCl 20 mg 12/28/17 17:54 01/16/18 09:30 Prozac Cap* PO 20 mg DAILY NATHANIEL Administration Hydralazine HCl 5 mg 12/26/17 16:08 01/09/18 07:16 Apresoline Tab* PO 5 mg Q6H PRN Administration SBP >180 Lactobacillus Rhamnosus 1 cap 12/24/17 21:00 01/16/18 09:30 Culturelle* PO 1 cap BID NATHANIEL Administration Losartan Potassium 100 mg 12/23/17 09:00 01/16/18 09:30 Cozaar Tab* PO 100 mg DAILY NATHANIEL Administration Magnesium Hydroxide 30 ml 12/22/17 13:28 Milk Of Magnesia Liq* PO Q6H PRN CONSTIPATION Metoprolol Succinate 50 mg 01/04/18 11:17 01/16/18 09:30 Toprol Xl Tab* PO 50 mg DAILY NATHANIEL Administration Potassium Chloride 20 meq 01/16/18 09:00 01/16/18 09:31 Klor Con Er Tab* PO 20 meq DAILY NATHANIEL Administration Senna 2 tab 12/22/17 13:28 Senokot Tab* PO BEDTIME PRN CONSTIPATION Vital Signs: Vital Signs Temp Pulse Resp BP Pulse Ox 97.7 F 51 20 172/74 96 01/16/18 06:17 01/16/18 06:17 01/16/18 06:17 01/16/18 06:31 01/16/18 06:17 Lab Results: Laboratory Results - last 24 hr 01/15/18 10:22 Sodium 134 Potassium 3.9 Chloride 100 L Carbon Dioxide 28 Anion Gap 6 BUN 20 Creatinine 0.65 Est GFR ( Amer) 113.1 Est GFR (Non-Af Amer) 87.9 BUN/Creatinine Ratio 30.8 H Glucose 101 H Calcium 9.4 Magnesium 1.5 L Exam: GEN: No acute distress. Alert and appropriate. HEENT: L facial droop. LUNGS: Clear bilaterally HEART: Regular rate and rhythm ABDOMEN: Soft, + BS, non-tender, non-distended NEUROLOGIC: CN VII palsy. trace right shoulder shrug and movement of her right hip. Right hip adduction seems strongest. EXTREMITIES: Right heel sore now nickel-sized and much smaller than when I last saw. Good granulation tissue and clean. No edema. Assessment/Plan: 77yo woman s/p CVA with right hemiplegia, dysphagia, dysarthria, and cognitive impairment. 1. 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 Prozac 20 mg. 2. Dysphagia: Mech Ground Texture, thin liquids. 3. Right heel ulcer: mepilex dressings. Multipodus boot with hourly checks and adjustments scheduled. 4. P. Atrial Fibrillation: Pradaxa/Lopressor 5. Hypertension: Cozaar and Lopressor. prn hydralazine. Add amlodipine 5mg qday. 6. Hyperglycemia: Hgb A1c mildly elevated. Will follow 7. Hypomagnesemia/Hypokalemia: Mg still low, but stable. Will see as her diet and intake improve if her Mg will rise. I d/w her on 01/15 IV Magnesium sulfate. She has concern of her sulfa allergy (likely sulfonamide and reaction was rash) from an antibiotic and does not want to take Magnesium oxide since had diarrhea , which has resolved. Will keep on a 20meq KCL daily. f/u labs. 8. Advanced Directives: Has MOLST; DNR 9. Diarrhea: Stopped, had a solid BM. 10. Dispo: Per insurance will not extend acute rehab and will need subacute setting. 01/16/18 10:32
[2018-01-16] MEDS: amLODIPine TAB* 5 MG PO SCH (11:29)
[2018-01-16] MEDS: Atorvastatin* 80 MG TAB PO SCH (17:26)
[2018-01-17] MEDS: CMC:Dabigatran CAP(NF) 150 MG CAP PO SCH ×2 (09:13→21:43)
[2018-01-17] MEDS: Metoprolol Succinate XL TAB* 50 MG PO SCH (09:13)
[2018-01-17] MEDS: amLODIPine TAB* 5 MG PO SCH (09:13)
[2018-01-17] MEDS: Lactobacillus Acidophilu (GG)* 1 CAP CAP PO SCH ×2 (09:13→21:43)
[2018-01-17] MEDS: FLUoxetine CAP* 20 MG PO SCH (09:13)
[2018-01-17] MEDS: Potassium Chlor TAB* 20 MEQ TAB.ER PO SCH (09:13)
[2018-01-17] MEDS: Losartan TAB* 25 MG PO SCH (09:13)
--- NOTE | 2018-01-17 10:30 | PN ---
Progress Note Date of Service: 01/17/18 Note: CANDI WADE was visited. Nursing notes read and reviewed. No chest pain, shortness of breath or abdominal pain. She thinks right hand glove is helping with her hand swelling. Tolerating addition of norvasc. Current Medications: Active Medications Generic Name Dose Route Start Last Admin Trade Name Freq PRN Reason Stop Dose Admin Acetaminophen 650 mg 12/22/17 13:28 Tylenol Tab* PO Q6H PRN FEVER/PAIN Amlodipine Besylate 5 mg 01/16/18 10:00 01/17/18 09:13 Norvasc Tab* PO 5 mg DAILY NATHANIEL Administration Atorvastatin Calcium 80 mg 12/23/17 17:00 01/16/18 17:26 Lipitor* PO 80 mg 1700 NATHANIEL Administration Dabigatran 150 mg 12/22/17 21:00 01/17/18 09:13 Pradaxa Cap(Nf) PO 150 mg BID NATHANIEL Administration Docusate Sodium 100 mg 12/26/17 09:22 Colace Cap* PO BID PRN CONSTIPATION Fluoxetine HCl 20 mg 12/28/17 17:54 01/17/18 09:13 Prozac Cap* PO 20 mg DAILY NATHANIEL Administration Hydralazine HCl 5 mg 12/26/17 16:08 01/09/18 07:16 Apresoline Tab* PO 5 mg Q6H PRN Administration SBP >180 Lactobacillus Rhamnosus 1 cap 12/24/17 21:00 01/17/18 09:13 Culturelle* PO 1 cap BID NATHANIEL Administration Losartan Potassium 100 mg 12/23/17 09:00 01/17/18 09:13 Cozaar Tab* PO 100 mg DAILY NATHANIEL Administration Magnesium Hydroxide 30 ml 12/22/17 13:28 Milk Of Magnesia Liq* PO Q6H PRN CONSTIPATION Metoprolol Succinate 50 mg 01/04/18 11:17 01/17/18 09:13 Toprol Xl Tab* PO 50 mg DAILY NATHANIEL Administration Potassium Chloride 20 meq 01/16/18 09:00 01/17/18 09:13 Klor Con Er Tab* PO 20 meq DAILY NATHANIEL Administration Senna 2 tab 12/22/17 13:28 Senokot Tab* PO BEDTIME PRN CONSTIPATION Vital Signs: Vital Signs 01/16/18 01/16/18 01/16/18 13:12 15:34 17:53 Temperature 98.9 F Pulse Rate 51 Respiratory 16 Rate Blood Pressure 140/82 168/73 120/78 (mmHg) O2 Sat by Pulse 97 Oximetry 01/17/18 06:53 Temperature 100.0 F Pulse Rate 52 Respiratory 20 Rate Blood Pressure 170/80 (mmHg) O2 Sat by Pulse 96 Oximetry Exam: GEN: No acute distress. Alert and appropriate. HEENT: L facial droop. LUNGS: Clear bilaterally HEART: Regular rate and rhythm ABDOMEN: Soft, + BS, non-tender, non-distended NEUROLOGIC: CN VII palsy. trace right shoulder shrug and movement of her right hip. Right hip adduction seems strongest. EXTREMITIES: Right heel dressed. No edema. Assessment/Plan: 77yo woman s/p CVA with right hemiplegia, dysphagia, dysarthria, and cognitive impairment. 1. 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 Prozac 20 mg. 2. Dysphagia: Mech Ground Texture, thin liquids. 3. Right heel ulcer: mepilex dressings. Multipodus boot with hourly checks and adjustments scheduled. 4. P. Atrial Fibrillation: Pradaxa/Lopressor 5. Hypertension: Cozaar and Lopressor. prn hydralazine. Added amlodipine 5mg qday on 01/16/18. Follow VS. 6. Hyperglycemia: Hgb A1c mildly elevated. f/u as outpatient. 7. Hypomagnesemia/Hypokalemia: Mg still low, but stable. Will see as her diet and intake improve if her Mg will rise. D/w her on 01/15 IV Magnesium sulfate. She has concern of her sulfa allergy (likely sulfonamide and reaction was rash) from an antibiotic and does not want to take Magnesium oxide since had diarrhea , which has resolved. Will keep on a 20meq KCL daily. f/u labs. 8. Advanced Directives: Has MOLST; DNR 9. Diarrhea: Stopped, had a solid BM. 10. Dispo: Per insurance will not extend acute rehab and will need subacute setting. 01/17/18 10:29
[2018-01-17] MEDS: Atorvastatin* 80 MG TAB PO SCH (17:13)
[2018-01-18] MEDS: amLODIPine TAB* 5 MG PO SCH (08:57)
[2018-01-18] MEDS: CMC:Dabigatran CAP(NF) 150 MG CAP PO SCH ×2 (08:58→20:13)
[2018-01-18] MEDS: FLUoxetine CAP* 20 MG PO SCH (09:01)
[2018-01-18] MEDS: Lactobacillus Acidophilu (GG)* 1 CAP CAP PO SCH ×2 (09:01→20:13)
[2018-01-18] MEDS: Losartan TAB* 25 MG PO SCH (09:01)
[2018-01-18] MEDS: Metoprolol Succinate XL TAB* 50 MG PO SCH (09:02)
[2018-01-18] MEDS: Potassium Chlor TAB* 20 MEQ TAB.ER PO SCH (09:02)
--- NOTE | 2018-01-18 15:48 | PN ---
Progress Note Date of Service: 01/18/18 Note: CANDI WADE was visited. Therapy notes read and reviewed. She has a bed offer at [facility] in [place] and will likely go there tomorrow. She has some upper airway congestion which may be due to a viral syndrome. Current Medications: Active Medications Generic Name Dose Route Start Last Admin Trade Name Freq PRN Reason Stop Dose Admin Acetaminophen 650 mg 12/22/17 13:28 Tylenol Tab* PO Q6H PRN FEVER/PAIN Amlodipine Besylate 5 mg 01/16/18 10:00 01/18/18 08:57 Norvasc Tab* PO 5 mg DAILY NATHANIEL Administration Atorvastatin Calcium 80 mg 12/23/17 17:00 01/17/18 17:13 Lipitor* PO 80 mg 1700 NATHANIEL Administration Dabigatran 150 mg 12/22/17 21:00 01/18/18 08:58 Pradaxa Cap(Nf) PO 150 mg BID NATHANIEL Administration Docusate Sodium 100 mg 12/26/17 09:22 Colace Cap* PO BID PRN CONSTIPATION Fluoxetine HCl 20 mg 12/28/17 17:54 01/18/18 09:01 Prozac Cap* PO 20 mg DAILY NATHANIEL Administration Hydralazine HCl 5 mg 12/26/17 16:08 01/09/18 07:16 Apresoline Tab* PO 5 mg Q6H PRN Administration SBP >180 Lactobacillus Rhamnosus 1 cap 12/24/17 21:00 01/18/18 09:01 Culturelle* PO 1 cap BID NATHANIEL Administration Losartan Potassium 100 mg 12/23/17 09:00 01/18/18 09:01 Cozaar Tab* PO 100 mg DAILY NATHANIEL Administration Magnesium Hydroxide 30 ml 12/22/17 13:28 Milk Of Magnesia Liq* PO Q6H PRN CONSTIPATION Metoprolol Succinate 50 mg 01/04/18 11:17 01/18/18 09:02 Toprol Xl Tab* PO 50 mg DAILY NATHANIEL Administration Potassium Chloride 20 meq 01/16/18 09:00 01/18/18 09:02 Klor Con Er Tab* PO 20 meq DAILY NATHANIEL Administration Senna 2 tab 12/22/17 13:28 Senokot Tab* PO BEDTIME PRN CONSTIPATION Vital Signs: Vital Signs Temp Pulse Resp BP Pulse Ox 99.7 F 55 18 170/78 93 01/18/18 06:11 01/18/18 06:11 01/18/18 06:11 01/18/18 06:11 01/18/18 06:11 Exam: GEN: No acute distress. Alert and appropriate. HEENT: L facial droop. LUNGS: Clear bilaterally HEART: Regular rate and rhythm ABDOMEN: Soft, + BS, non-tender, non-distended NEUROLOGIC: CN VII palsy. trace right shoulder shrug and movement of her right hip. Assessment/Plan: 1. 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 Prozac 20 mg. 2. Dysphagia: Mech Ground Texture, thin liquids. 3. Right heel ulcer: mepilex dressings. Multipodus boot with hourly checks and adjustments scheduled. 4. P. Atrial Fibrillation: Pradaxa/Lopressor 5. Hypertension: Cozaar and Lopressor. prn hydralazine. Added amlodipine 5mg qday on 01/16/18. Follow VS. 6. Hyperglycemia: Hgb A1c mildly elevated. f/u as outpatient. 7. Hypomagnesemia/Hypokalemia: Mg still low, but stable. Will see as her diet and intake improve if her Mg will rise. f/u labs. 8. Advanced Directives: Has MOLST; DNR 9. Diarrhea: Stopped, had a solid BM. 10. Dispo: To [facility] tomorrow 01/18/18 15:48
[2018-01-18] MEDS: Atorvastatin* 80 MG TAB PO SCH (16:19)
[2018-01-19 05:35] VITALS: BP 161/66
[2018-01-19] MEDS: Lactobacillus Acidophilu (GG)* 1 CAP CAP PO SCH (08:06)
[2018-01-19] MEDS: FLUoxetine CAP* 20 MG PO SCH (08:06)
[2018-01-19] MEDS: amLODIPine TAB* 5 MG PO SCH (08:06)
[2018-01-19] MEDS: CMC:Dabigatran CAP(NF) 150 MG CAP PO SCH (08:06)
[2018-01-19] MEDS: Potassium Chlor TAB* 20 MEQ TAB.ER PO SCH (08:07)
[2018-01-19] MEDS: Metoprolol Succinate XL TAB* 50 MG PO SCH (08:07)
[2018-01-19] MEDS: Losartan TAB* 25 MG PO SCH (08:07)
--- NOTE | 2018-01-19 13:47 | TRS ---
CC: [facility] in [place], [place] * TRANSFER SUMMARY: DATE OF ADMISSION: 12/22/17 DATE OF DISCHARGE: 01/19/18 DISCHARGE DIAGNOSES: 1. Left cerebrovascular accident with right hemiplegia. 2. Paroxysmal atrial fibrillation. 3. Hypertension. 4. Right heel ulcer. 5. Dysphagia as a result of her cerebrovascular accident. 6. Clostridium difficile colitis. 7. Chronic diarrhea. HISTORY OF ILLNESS AND HOSPITAL COURSE: For complete history of the events leading up to her rehab stay, please see the history and physical dictated by me on 12/22/17. While on the rehab unit, the patient received an extensive treatment with oral vancomycin for her C. difficile colitis. She also developed a urinary tract infection while on the rehab unit and this was treated with Cipro. She had an Infectious Disease consult with Dr. Sonny Still, who recommended extending her vancomycin treatment to 01/05/18. Her vancomycin was stopped at that time. The patient had multiple medications, which might have contributed to her diarrhea and these were held or stopped. These included magnesium oxide, which she was taking for hypomagnesemia. The patient's diarrhea eventually stopped. She remained hypomagnesemic, but the patient did not wish to go back on magnesium oxide. In an attempt to promote neuronal recovery, the patient was started on Prozac and remains on Prozac. The patient had difficulties with dysphagia. She was seen by Speech Therapy while on the rehab unit. Her diet was able to be upgraded to mechanical ground and thin liquids. This was following a video fluoroscopy study that was done on 01/08/18. The patient was seen by Speech Therapy as well as Physical Therapy and Occupational Therapy and made gains with all 3 disciplines. As mentioned, her diet improved with speech therapy. With physical therapy at the time of admission, the patient required max assist of 2 people to do a transfer. By the time of discharge, the patient was able to transfer with mod assist, still unable to ambulate. With occupational therapy at the time of admission, the patient was total assistance for dressing, total assistance for toileting, and total assistance for toilet transfers. By the time of discharge , the patient was mod assist for upper body dressing, mod assist for lower body dressing, total assistance for toileting, and mod assist for toilet transfers. The patient is being transferred to the [facility] in order to undergo continued rehabilitation on a slower scale so that she may return to independent living. DISCHARGE DIET: Mechanical ground and thin liquids. She was on a consistent carb diet as well. DISCHARGE MEDICATIONS: Included: 1. Norvasc 5 mg daily. 2. Lipitor 80 mg daily. 3. Pradaxa 150 mg twice daily. 4. Prozac 20 mg daily. 5. Culturelle 1 tablet twice a day. 6. Cozaar 100 mg daily. 7. Toprol-XL 50 mg daily. 8. Potassium chloride tablets 20 mEq daily. SERVICES AFTER DISCHARGE: She should have restorative physical therapy, occupational therapy, and speech therapy. [id number]/[facility] #: [id number] HILARIA
== END 2018-01-19 12:15 | DRG 57 ==
LOC: PMRU 12:49 → EDBD 12:49
PROVIDERS: ADMIT Physical Medicine & Rehabilitation; ATTEND Physical Medicine & Rehabilitation
PROC: F07Z5ZZ Bed Mobility Treatment (ICD-10-PCS; principal; 2017-12-22)
PROC: F07Z9ZZ Gait Training/Functional Ambulation Treatment (ICD-10-PCS; 2017-12-22)
PROC: F07Z8ZZ Transfer Training Treatment (ICD-10-PCS; 2017-12-22)
PROC: F08Z0ZZ Bathing/Showering Techniques Treatment (ICD-10-PCS; 2017-12-22)
PROC: F08Z1ZZ Dressing Techniques Treatment (ICD-10-PCS; 2017-12-22)
PROC: F08Z3ZZ Feeding/Eating Treatment (ICD-10-PCS; 2017-12-22)
PROC: F06Z6ZZ Communicative/Cognitive Integration Skills Treatment (ICD-10-PCS; 2017-12-22)
PROC: F06ZDZZ Swallowing Dysfunction Treatment (ICD-10-PCS; 2017-12-22)
DX: I69.351 Hemiplegia and hemiparesis following cerebral infarction affecting right dominant side (principal); A04.72 Enterocolitis due to Clostridium difficile, not specified as recurrent; I48.0 Paroxysmal atrial fibrillation; R13.10 Dysphagia, unspecified; E83.42 Hypomagnesemia; L89.612 Pressure ulcer of right heel, stage 2; N39.0 Urinary tract infection, site not specified; I69.391 Dysphagia following cerebral infarction; I69.322 Dysarthria following cerebral infarction; I69.392 Facial weakness following cerebral infarction; I69.319 Unspecified symptoms and signs involving cognitive functions following cerebral infarction; K52.9 Noninfective gastroenteritis and colitis, unspecified; B96.1 Klebsiella pneumoniae [K. pneumoniae] as the cause of diseases classified elsewhere; B96.89 Other specified bacterial agents as the cause of diseases classified elsewhere; E87.6 Hypokalemia; F17.210 Nicotine dependence, cigarettes, uncomplicated; R73.9 Hyperglycemia, unspecified; Z66 Do not resuscitate; I10 Essential (primary) hypertension; Z79.899 Other long term (current) drug therapy; Z88.6 Allergy status to analgesic agent; Z88.0 Allergy status to penicillin; Z88.2 Allergy status to sulfonamides
CPT/HCPCS: 36415; 71046; 74230; 80048; 80053; 81003; 81015; 83036; 83735; 85025; 87077; 87086; 87186; A9270-GY; G0515-GO